=== PATIENT | female | born 2005 | race African-American/Black ===

== ENCOUNTER 2025-04-16 13:11 | Emergency (ER) | payer OTHER, SELFPAY ==
--- OUTSIDE RECORDS SUMMARY | 2025-01-12 18:00 | XMS_ITS | Continuity of Care Document ---
Author Organization [facility] Address [address] [place] [address] Phone Care Team Providers Care Supervisor Hide House Name Role Phone Santy DONIS, FACC, Home Unavailable Unavailab le Procedures Procedure Date ELECTROCARDIOGRAM REPORT Advance Directives Directive Yes / No Effective Date File Name No Information Encounters Encounter Description Practice Location Reason(s) For Visit Diagnoses Date Provider Providers Copied on Encounter [facility], [address] [place] [address], [id number], tel:[phone] [facility] ER No Information Santy Bhat. [address] [place] [address], [id number], . tel:[phone] Referring Provider: [facility], [address] [place] [address], [phone]. tel:[phone] Family History Family Member Type Diagnosis Age At Onset No Information Payers Payer name Insurance type Covered alliance party ID Authorsathisha ron(s) [place] MEDICAID [place] [id number] Social History Type Description Quantity Date Captured Comments Sex Female Smoking Status No Information Chief Complaint And Reason For Visit No Information Reason For Referral Reason For Referral No Information History Of Present Illness Encounter Date Complaint History Of Prese nt Illness No Information Functional Status Date Functional Assessmen t No Information Instructions Date Instruction Additional Infor mation No Information Assessments Type Assessment Date No Information Patient Care Teams Name Effective Dates (start - stop) Status Members No Information
--- OUTSIDE RECORDS SUMMARY | 2025-01-12 18:00 | XMS_ITS | Continuity of Care Document ---
Author Organization [facility] Address [address] [place] [address] Phone Care Team Providers Care Jailor Name Role Phone Santy DONIS, FACC, Home Unavailable Unavailab le Procedures Procedure Date ELECTROCARDIOGRAM REPORT Advance Directives Directive Yes / No Effective Date File Name No Information Encounters Encounter Description Practice Location Reason(s) For Visit Diagnoses Date Provider Providers Copied on Encounter [facility], [address] [place] [address], [id number], tel:[phone] [facility] ER No Information Santy Bhat. [address] [place] [address], [id number], . tel:[phone] Referring Provider: [facility], [address] [place] [address], [id number]. tel:[phone] Family History Family Member Type Diagnosis Age At Onset No Information Payers Payer name Insurance type Covered constitution party ID Authorsathisha ron(s) [place] MEDICAID CI [id number] Social History Type Description Quantity Date Captured [...]
--- OUTSIDE RECORDS SUMMARY | 2025-01-12 18:00 | XMS_ITS | Continuity of Care Document ---
Author Organization [facility] Address [address] [place] [address] Phone Care Team Providers Care Commercial Sewing Instructor Name Role Phone Santy DONIS, FACC, Home Unavailable Unavailab le Procedures Procedure Date ELECTROCARDIOGRAM REPORT Advance Directives Directive Yes / No Effective Date File Name No Information Encounters Encounter Description Practice Location Reason(s) For Visit Diagnoses Date Provider Providers Copied on Encounter [facility], [address] [place] [address], [id number], tel:[phone] [facility] ER No Information Santy Bhat. [address] [place] [address], [id number], . tel:[phone] Referring Provider: [facility], [address] [place] [address], [phone]. tel:[phone] Family History Family Member Type Diagnosis Age At Onset No Information Payers Payer name Insurance type Covered libertarian ID Authorsathisha ron(s) [place] MED[place]ID [place] [id number] Social History Type Description Quantity Date Captured [...]
--- OUTSIDE RECORDS SUMMARY | 2025-01-12 18:00 | XMS_ITS | Continuity of Care Document ---
Author Organization [facility] Address [address] [place] [phone] Phone Care Team Providers Care Patient Appointment Coordinator Name Role Phone Santy DONIS, FACC, Home Unavailable Unavailab le Procedures Procedure Date ELECTROCARDIOGRAM REPORT Advance Directives Directive Yes / No Effective Date File Name No Information Encounters Encounter Description Practice Location Reason(s) For Visit Diagnoses Date Provider Providers Copied on Encounter [facility], [address] [place] [address], [id number], tel:[phone] [facility] ER No Information Santy Bhat. [address] [place] [address], [id number], . tel:[phone] Referring Provider: [facility], [address] [place] [address], [id number]. tel:[phone] Family History Family Member Type Diagnosis Age At Onset No Information Payers Payer name Insurance type Covered green party ID Authorsathisha ron(s) [place] MED[place]ID CI [id number] Social History Type Description Quantity Date Captured [...]
--- OUTSIDE RECORDS SUMMARY | 2025-01-12 18:00 | XMS_ITS | Continuity of Care Document ---
Author Organization [facility] Address [address] [place] [phone] Phone Care Team Providers Care Acid Tender Name Role Phone Santy DONIS, FACC, Home Unavailable Unavailab le Procedures Procedure Date ELECTROCARDIOGRAM REPORT Advance Directives Directive Yes / No Effective Date File Name No Information Encounters Encounter Description Practice Location Reason(s) For Visit Diagnoses Date Provider Providers Copied on Encounter [facility], [address] [place] [address], [id number], tel:[phone] [facility] ER No Information Santy Bhat. [address] [place] [address], [id number], . tel:[phone] Referring Provider: [facility], [address] [place] [address], [phone]. tel:[phone] Family History Family Member Type Diagnosis Age At Onset No Information Payers Payer name Insurance type Covered republican ID Authorsathisha ron(s) [place] MED[place]ID CI [id number] Social History Type Description Quantity Date Captured [...]
--- OUTSIDE RECORDS SUMMARY | 2025-01-12 18:00 | XMS_ITS | Continuity of Care Document ---
Author Organization [facility] Address [address] [place] [phone] Phone Care Team Providers Care Customer Insight Analyst Name Role Phone Santy DONIS, FACC, Home Unavailable Unavailab le Procedures Procedure Date ELECTROCARDIOGRAM REPORT Advance Directives Directive Yes / No Effective Date File Name No Information Encounters Encounter Description Practice Location Reason(s) For Visit Diagnoses Date Provider Providers Copied on Encounter [facility], [address] [place] [address], [id number], tel:[phone] [facility] ER No Information Santy Bhat. [address] [place] [address], [id number], . tel:[phone] Referring Provider: [facility], [address] [place] [address], [phone]. tel:[phone] Family History Family Member Type Diagnosis Age At Onset No Information Payers Payer name Insurance type Covered libertarian ID Authorsathisha ron(s) [place] MEDICAID CI [id number] Social History Type Description Quantity Date Captured [...]
--- OUTSIDE RECORDS SUMMARY | 2025-01-12 18:00 | XMS_ITS | Continuity of Care Document ---
Author Organization [facility] Address [address] [place] [phone] Phone Care Team Providers Care Youth Coordinator Name Role Phone Santy DONIS, FACC, Home Unavailable Unavailab le Procedures Procedure Date ELECTROCARDIOGRAM REPORT Advance Directives Directive Yes / No Effective Date File Name No Information Encounters Encounter Description Practice Location Reason(s) For Visit Diagnoses Date Provider Providers Copied on Encounter [facility], [address] [place] [address], [id number], tel:[phone] [facility] ER No Information Santy Bhat. [address] [place] [address], [id number], . tel:[phone] Referring Provider: [facility], [address] [place] [address], [phone]. tel:[phone] Family History Family Member Type Diagnosis Age At Onset No Information Payers Payer name Insurance type Covered republican ID Authorsathisha ron(s) [place] MEDICAID [place] [id number] Social History Type Description Quantity Date Captured [...]
--- OUTSIDE RECORDS SUMMARY | 2025-01-12 18:00 | XMS_ITS | Continuity of Care Document ---
Author Organization [facility] Address [address] [place] [address] Phone Care Team Providers Care Sap Consultant Name Role Phone Santy DONIS, FACC, Home Unavailable Unavailab le Procedures Procedure Date ELECTROCARDIOGRAM REPORT Advance Directives Directive Yes / No Effective Date File Name No Information Encounters Encounter Description Practice Location Reason(s) For Visit Diagnoses Date Provider Providers Copied on Encounter [facility], [address] [place] [address], [id number], tel:[phone] [facility] ER No Information Santy Bhat. [address] [place] [address], [id number], . tel:[phone] Referring Provider: [facility], [address] [place] [address], [phone]. tel:[phone] Family History Family Member Type Diagnosis Age At Onset No Information Payers Payer name Insurance type Covered libertarian ID Authorsathisha ron(s) [place] MED[place]ID [place] [id number] Social History Type Description Quantity Date Captured [...]
--- OUTSIDE RECORDS SUMMARY | 2025-01-12 18:00 | XMS_ITS | Continuity of Care Document ---
Author Organization [facility] Address [address] [place] [phone] Phone Care Team Providers Care Box Lining Machine Operator Name Role Phone Santy DONIS, FACC, Home Unavailable Unavailab le Procedures Procedure Date ELECTROCARDIOGRAM REPORT Advance Directives Directive Yes / No Effective Date File Name No Information Encounters Encounter Description Practice Location Reason(s) For Visit Diagnoses Date Provider Providers Copied on Encounter [facility], [address] [place] [address], [id number], tel:[phone] [facility] ER No Information Santy Bhat. [address] [place] [address], [id number], . tel:[phone] Referring Provider: [facility], [address] [place] [address], [phone]. tel:[phone] Family History Family Member Type Diagnosis Age At Onset No Information Payers Payer name Insurance type Covered alliance party ID Authorsathisha ron(s) [place] MEDICAID CI [id number] Social History Type Description Quantity Date Captured [...]
--- OUTSIDE RECORDS SUMMARY | 2025-01-12 18:00 | XMS_ITS | Continuity of Care Document ---
Author Organization [facility] Address [address] [place] [phone] Phone Care Team Providers Care Business Associate Name Role Phone Santy DONIS, FACC, Home Unavailable Unavailab le Procedures Procedure Date ELECTROCARDIOGRAM REPORT Advance Directives Directive Yes / No Effective Date File Name No Information Encounters Encounter Description Practice Location Reason(s) For Visit Diagnoses Date Provider Providers Copied on Encounter [facility], [address] [place] [address], [id number], tel:[phone] [facility] ER No Information Santy Bhat. [address] [place] [address], [id number], . tel:[phone] Referring Provider: [facility], [address] [place] [address], [id number]. tel:[phone] Family History Family Member Type Diagnosis Age At Onset No Information Payers Payer name Insurance type Covered alliance party ID Authorsathisha ron(s) [place] MEDICAID [place] [id number] Social History Type Description Quantity Date Captured [...]
--- OUTSIDE RECORDS SUMMARY | 2025-01-12 18:00 | XMS_ITS | Continuity of Care Document ---
Author Organization [facility] Address [address] [place] [phone] Phone Care Team Providers Care Shuttle Inspector Name Role Phone Santy DONIS, FACC, Home Unavailable Unavailab le Procedures Procedure Date ELECTROCARDIOGRAM REPORT Advance Directives Directive Yes / No Effective Date File Name No Information Encounters Encounter Description Practice Location Reason(s) For Visit Diagnoses Date Provider Providers Copied on Encounter [facility], [address] [place] [address], [id number], tel:[phone] [facility] ER No Information Santy Bhat. [address] [place] [address], [id number], . tel:[phone] Referring Provider: [facility], [address] [place] [address], [id number]. tel:[phone] Family History Family Member Type Diagnosis Age At Onset No Information Payers Payer name Insurance type Covered alliance party ID Authorsathisha ron(s) [place] MEDICAID CI [id number] Social History Type Description Quantity Date Captured [...]
--- OUTSIDE RECORDS SUMMARY | 2025-01-12 18:00 | XMS_ITS | Continuity of Care Document ---
Author Organization [facility] Address [address] [place] [phone] Phone Care Team Providers Care Orderlies Teacher Name Role Phone Santy DONIS, FACC, Home Unavailable Unavailab le Procedures Procedure Date ELECTROCARDIOGRAM REPORT Advance Directives Directive Yes / No Effective Date File Name No Information Encounters Encounter Description Practice Location Reason(s) For Visit Diagnoses Date Provider Providers Copied on Encounter [facility], [address] [place] [address], [id number], tel:[phone] [facility] No Information Santy Bhat. [address] [place] [address], [id number], . tel:[phone] Referring Provider: [facility], [address] [place] [address], [phone]. tel:[phone] Family History Family Member Type Diagnosis Age At Onset No Information Payers Payer name Insurance type Covered democrat ID Authorsathisha ron(s) [place] MEDICAID CI [id number] Social History Type Description Quantity Date Captured [...]
--- OUTSIDE RECORDS SUMMARY | 2025-01-12 18:00 | XMS_ITS | Continuity of Care Document ---
Author Organization [facility] Address [address] [place] [phone] Phone Care Team Providers Care Patron Attendant Name Role Phone Santy DONIS, FACC, Home Unavailable Unavailab le Procedures Procedure Date ELECTROCARDIOGRAM REPORT Advance Directives Directive Yes / No Effective Date File Name No Information Encounters Encounter Description Practice Location Reason(s) For Visit Diagnoses Date Provider Providers Copied on Encounter [facility], [address] [place] [address], [id number], tel:[phone] [facility] ER No Information Santy Bhat. [address] [place] [address], [id number], . tel:[phone] Referring Provider: [facility], [address] [place] [address], [phone]. tel:[phone] Family History Family Member Type Diagnosis Age At Onset No Information Payers Payer name Insurance type Covered green party ID Authorsathisha ron(s) [place] MEDICAID CI [id number] Social History Type Description Quantity Date Captured [...]
--- OUTSIDE RECORDS SUMMARY | 2025-01-12 18:00 | XMS_ITS | Continuity of Care Document ---
Author Organization [facility] Address [address] [place] [phone] Phone Care Team Providers Care Volunteer Firefighter Name Role Phone Santy DONIS, FACC, Home Unavailable Unavailab le Procedures Procedure Date ELECTROCARDIOGRAM REPORT Advance Directives Directive Yes / No Effective Date File Name No Information Encounters Encounter Description Practice Location Reason(s) For Visit Diagnoses Date Provider Providers Copied on Encounter [facility], [address] [place] [address], [id number], tel:[phone] [facility] ER No Information Santy Bhat. [address] [place] [address], [id number], . tel:[phone] Referring Provider: [facility], [address] [place] [address], [id number]. tel:[phone] Family History Family Member Type Diagnosis Age At Onset No Information Payers Payer name Insurance type Covered constitution party ID Authorsathihsa ron(s) [place] MEDICAID CI [id number] Social History Type Description Quantity Date Captured [...]
--- OUTSIDE RECORDS SUMMARY | 2025-01-12 18:00 | XMS_ITS | Continuity of Care Document ---
Author Organization [facility] Address [address] [place] [phone] Phone Care Team Providers Care V Belt Curer Name Role Phone Santy DONIS, FACC, Home Unavailable Unavailab le Procedures Procedure Date ELECTROCARDIOGRAM REPORT Advance Directives Directive Yes / No Effective Date File Name No Information Encounters Encounter Description Practice Location Reason(s) For Visit Diagnoses Date Provider Providers Copied on Encounter [facility], [address] [place] [address], [id number], tel:[phone] [facility] ER No Information Santy Bhat. [address] [place] [address], [id number], . tel:[phone] Referring Provider: [facility], [address] [place] [address], [id number]. tel:[phone] Family History Family Member Type Diagnosis Age At Onset No Information Payers Payer name Insurance type Covered constitution party ID Authorsathisha ron(s) [place] MEDICAID CI [id number] Social History Type Description Quantity Date Captured [...]
--- OUTSIDE RECORDS SUMMARY | 2025-01-12 18:00 | XMS_ITS | Continuity of Care Document ---
Author Organization [facility] Address [address] [place] [phone] Phone Care Team Providers Care Travel Physical Therapist Name Role Phone Santy DONIS, FACC, Home Unavailable Unavailab le Procedures Procedure Date ELECTROCARDIOGRAM REPORT Advance Directives Directive Yes / No Effective Date File Name No Information Encounters Encounter Description Practice Location Reason(s) For Visit Diagnoses Date Provider Providers Copied on Encounter [facility], [address] [place] [address], [id number], tel:[phone] [facility] ER No Information Santy Bhat. [address] [place] [address], [id number], . tel:[phone] Referring Provider: [facility], [address] [place] [address], [phone]. tel:[phone] Family History Family Member Type Diagnosis Age At Onset No Information Payers Payer name Insurance type Covered republican ID Authorsathisha ron(s) [place] MEDICAID CI [id number] Social History Type Description Quantity Date Captured [...]
--- OUTSIDE RECORDS SUMMARY | 2025-01-12 18:00 | XMS_ITS | Continuity of Care Document ---
Author Organization [facility] Address [address] [place] [phone] Phone Care Team Providers Care Tape Sewing Machine Operator Name Role Phone Santy DONIS, FACC, Home Unavailable Unavailab le Procedures Procedure Date ELECTROCARDIOGRAM REPORT Advance Directives Directive Yes / No Effective Date File Name No Information Encounters Encounter Description Practice Location Reason(s) For Visit Diagnoses Date Provider Providers Copied on Encounter [facility], [address] [place] [address], [id number], tel:[phone] [facility] ER No Information Santy Bhat. [address] [place] [address], [id number], . tel:[phone] Referring Provider: [facility], [address] [place] [address], [phone]. tel:[phone] Family History Family Member Type Diagnosis Age At Onset No Information Payers Payer name Insurance type Covered libertarian ID Authorsathisha ron(s) [place] MED[place]ID CI [id number] Social History Type Description Quantity Date Captured [...]
--- OUTSIDE RECORDS SUMMARY | 2025-01-12 18:00 | XMS_ITS | Continuity of Care Document ---
Author Organization [facility] Address [address] [place] [phone] Phone Care Team Providers Care Greens Tier Name Role Phone Santy DONIS, FACC, Home Unavailable Unavailab le Procedures Procedure Date ELECTROCARDIOGRAM REPORT Advance Directives Directive Yes / No Effective Date File Name No Information Encounters Encounter Description Practice Location Reason(s) For Visit Diagnoses Date Provider Providers Copied on Encounter [facility], [address] [place] [address], [id number], tel:[phone] [facility] ER No Information Santy Bhat. [address] [place] [address], [id number], . tel:[phone] Referring Provider: [facility], [address] [place] [address], [phone]. tel:[phone] Family History Family Member Type Diagnosis Age At Onset No Information Payers Payer name Insurance type Covered green party ID Authorsathisha ron(s) [place] MEDICAID [place] [id number] Social History Type Description Quantity Date Captured [...]
--- OUTSIDE RECORDS SUMMARY | 2025-01-12 18:00 | XMS_ITS | Continuity of Care Document ---
Author Organization [facility] Address [address] [place] [phone] Phone Care Team Providers Care Teacher Aide Name Role Phone Santy DONIS, FACC, Home Unavailable Unavailab le Procedures Procedure Date ELECTROCARDIOGRAM REPORT Advance Directives Directive Yes / No Effective Date File Name No Information Encounters Encounter Description Practice Location Reason(s) For Visit Diagnoses Date Provider Providers Copied on Encounter [facility], [address] [place] [address], [id number], tel:[phone] [facility] ER No Information Santy Bhat. [address] [place] [address], [id number], . tel:[phone] Referring Provider: [facility], [address] [place] [address], [id number]. tel:[phone] Family History Family Member Type Diagnosis Age At Onset No Information Payers Payer name Insurance type Covered democrat ID Authorsathisha ron(s) [place] MEDICAID CI [id number] Social History Type Description Quantity Date Captured [...]
--- OUTSIDE RECORDS SUMMARY | 2025-01-12 18:00 | XMS_ITS | Continuity of Care Document ---
Author Organization [facility] Address [address] [place] [phone] Phone Care Team Providers Care Passenger Representative Name Role Phone Santy DONIS, FACC, Home Unavailable Unavailab le Procedures Procedure Date ELECTROCARDIOGRAM REPORT Advance Directives Directive Yes / No Effective Date File Name No Information Encounters Encounter Description Practice Location Reason(s) For Visit Diagnoses Date Provider Providers Copied on Encounter [facility], [address] [place] [address], [id number], tel:[phone] [facility] ER No Information Santy Bhat. [address] [place] [address], [id number], . tel:[phone] Referring Provider: [facility], [address] [place] [address], [id number]. tel:[phone] Family History Family Member Type Diagnosis Age At Onset No Information Payers Payer name Insurance type Covered constitution party ID Authorsathisha ron(s) [place] MEDICAID CI [id number] Social History Type Description Quantity Date Captured [...]
--- OUTSIDE RECORDS SUMMARY | 2025-01-12 18:00 | XMS_ITS | Continuity of Care Document ---
Author Organization [facility] Address [address] [place] [phone] Phone Care Team Providers Care Supervisor Area Name Role Phone Santy DONIS, FACC, Home Unavailable Unavailab le Procedures Procedure Date ELECTROCARDIOGRAM REPORT Advance Directives Directive Yes / No Effective Date File Name No Information Encounters Encounter Description Practice Location Reason(s) For Visit Diagnoses Date Provider Providers Copied on Encounter [facility], [address] [place] [address], [id number], tel:[phone] [facility] No Information Santy Bhat. [address] [place] [address], [id number], . tel:[phone] Referring Provider: [facility], [address] [place] [address], [id number]. tel:[phone] Family History Family Member Type Diagnosis Age At Onset No Information Payers Payer name Insurance type Covered constitution party ID Authorsathisha ron(s) [place] MEDICA[place] [id number] Social History Type Description Quantity Date Captured [...]
--- OUTSIDE RECORDS SUMMARY | 2025-01-12 18:00 | XMS_ITS | Continuity of Care Document ---
Author Organization [facility] Address [address] [place] [phone] Phone Care Team Providers Care Environmental Health Manager Name Role Phone Santy DONIS, FACC, Home Unavailable Unavailab le Procedures Procedure Date ELECTROCARDIOGRAM REPORT Advance Directives Directive Yes / No Effective Date File Name No Information Encounters Encounter Description Practice Location Reason(s) For Visit Diagnoses Date Provider Providers Copied on Encounter [facility], [address] [place] [address], [id number], tel:[phone] [facility] No Information Santy Baht. [address] [place] [address], [id number], . tel:[phone] Referring Provider: [facility], [address] [place] [address], [id number]. tel:[phone] Family History Family Member Type Diagnosis Age At Onset No Information Payers Payer name Insurance type Covered republican ID Authorsathisha ron(s) [place] [id number] Social History Type Description Quantity Date Captured [...]
--- OUTSIDE RECORDS SUMMARY | 2025-01-12 18:00 | XMS_ITS | Continuity of Care Document ---
Author Organization [facility] Address [address] [place] [phone] Phone Care Team Providers Care Care Services Manager Name Role Phone Santy DONIS, FACC, Home Unavailable Unavailab le Procedures Procedure Date ELECTROCARDIOGRAM REPORT Advance Directives Directive Yes / No Effective Date File Name No Information Encounters Encounter Description Practice Location Reason(s) For Visit Diagnoses Date Provider Providers Copied on Encounter [facility], [address] [place] [address], [id number], tel:[phone] [facility] No Information Santy Bhat. [address] [place] [address], [id number], . tel:[phone] Referring Provider: [facility], [address] [place] [address], [id number]. tel:[phone] Family History Family Member Type Diagnosis Age At Onset No Information Payers Payer name Insurance type Covered republican ID Authorsathisha ron(s) [place] MEDICAID CI [id number] Social History Type Description Quantity Date Captured [...]
--- OUTSIDE RECORDS SUMMARY | 2025-01-12 18:00 | XMS_ITS | Continuity of Care Document ---
Author Organization [facility] Address [address] [place] [phone] Phone Care Team Providers Care Marketing Project Specialist Name Role Phone Santy DONIS, FACC, oHme Unavailable Unavailab le Procedures Procedure Date ELECTROCARDIOGRAM REPORT Advance Directives Directive Yes / No Effective Date File Name No Information Encounters Encounter Description Practice Location Reason(s) For Visit Diagnoses Date Provider Providers Copied on Encounter [facility], [address] [place] [address], [id number], tel:[phone] [facility] No Information Santy Bhat. [address] [place] [address], [id number], . tel:[phone] Referring Provider: [facility], [address] [place] [address], [id number]. tel:[phone] Family History Family Member Type Diagnosis Age At Onset No Information Payers Payer name Insurance type Covered alliance party ID Authorsathisha ron(s) [place] CI [id number] Social History Type Description Quantity Date Captured [...]
[2025-04-16 13:17] VITALS: BP 178/84; PULSE 106; RESP 20; TEMP 36.9; O2SAT 98
--- NOTE | 2025-04-16 13:39 | PC.NURSE ---
slight left sided facial droop, left sided weakness/ droop -SOLITARIO -thinner 14 weeks . EMS called per Halima BREAUX
--- OUTSIDE RECORDS SUMMARY | 2025-04-16 14:14 | XMS_ITS | Encounter Summary ---
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 Pt drove herself to urgent care. Pt states she is 14 weeks . Arrives A&Ox4. Encounter Details Date Type Department Care Team (Late st Contact Info) Description 04/16/2025 2:14 PM DIRECTOR OF MANUFACTURING OPERATIONS - 04/16/2025 4:59 PM DIRECTOR OF MANUFACTURING OPERATIONS Emergency [facility] Emergency Department [address] [place] [address] Uzair Og MD [address] [place] [address] Neuralgia (Primary Dx) Discharge Disposition: Discharge to home or self care Social History Tobacco Use Types Packs/Day Years Used Date Smoking Tobacco: Never Smokeless Tobacco: Never Alcohol Use Standard Drinks/Week Comments Yes 0 (1 standard drink = 0.6 oz pur e alcohol) occasionally AUDIT-C Answer Date Recorded Q1: How often do you have a drink containing alc ohol? Never 03/28/2025 Average Number of Drinks Not on file 025 Frequency of Binge Drinking Not on file 02/28 Edgar Depression Scale Answer Date Recorded Edgar Depression Scale Total 4 03/28/2025 The thought of harming myself has occurred to me . Never 03/28/2025 Personal Safety Answer Date Recorded Have you ever been in or are you currently in a harmful physical or emotional relationship or is someone making you feel afraid or unsafe? Denies 04/16/2025 Estimated Date of Delivery Comme nts Yes 10/14/2025 Based on Ultraso und Sex and Gender Information Value Date Recorded Sex Assigned at Not on file Legal Sex Female 7:14 PM CDT Gender Identity Not on file Sexual Orientation Not on file documented as of this encounter Last Filed Vital Signs Vital Sign Reading Time Taken Comments Blood Pressure 133/74 04/16/2025 4:00 PM DIRECTOR OF MANUFACTURING OPERATIONS Pulse 80 04/16/2025 4:00 PM DIRECTOR OF MANUFACTURING OPERATIONS Temperature 36.7 C (98 F) 04/16/2025 4:00 PM DIRECTOR OF MANUFACTURING OPERATIONS Respiratory Rate 22 04/16/2025 4:00 PM DIRECTOR OF MANUFACTURING OPERATIONS Oxygen Saturation 99% 04/16/2025 4:00 PM DIRECTOR OF MANUFACTURING OPERATIONS Inhaled Oxygen Concentration - - Weight 104.3 kg (230 lb) 04/16/2025 2:30 PM DIRECTOR OF MANUFACTURING OPERATIONS Height 170.2 cm (5' 7) 04/16/2025 2:30 PM DIRECTOR OF MANUFACTURING OPERATIONS Body Mass Index 36.02 04/16/2025 2:30 PM DIRECTOR OF MANUFACTURING OPERATIONS documented in this encounter Functional Status * Question Answer Date of Assessment Author Is the patient being treated today because it is known or suspected that they prepared, started, or tried to end their life? No 04/16/2025 2:31 PM Jo-Ann Cook , OSVALDO * Question Answer Date of Assessment Author 1. In the past month, have y ou wished you were or that you could go to sleep and not wake up? No 04/16/2025 2:31 PM Jo-Ann Cook , OSVALDO 2. In the past month, have y ou actually had any thoughts of killing yourself? No 04/16/2025 2:31 PM Jo-Ann Cook , OSVALDO 6. Have you ever done anythi ng, started to do anything, or prepared to do anything to end your life? No 04/16/2025 2:31 PM DIRECTOR OF MANUFACTURING OPERATIONS Jo-Ann Anderson OSVALDO * Suicide Risk Level Answer Date of Assessment Author No risk level 04/16/2025 2:31 PM Jo-Ann Cook RN * Question Answer Date of Assessment Author MAP (mmHg) 86 04/16/2025 2:30 PM Jo-Ann Pedersen RN * Fall Risk Assessment Tool - MEDFRAT Question Answer Date of Assessment Author Prior Fall Event (Autopopulated from EMR) None found 04/16/2025 2:35 PM Jorje Cook RN Pt needs supervision/assistance with ambulation? (makes patient High risk) No 04/16/2025 2:35 PM Jo-Ann Cook RN History of falling in last 3 months, including since admission 0 04/16/2025 2:35 PM Jo-Ann Cook RN Confusion or disorientation 0 04/16/2025 2: 35 PM Jo-Ann Cook RN Intoxicated or sedated 0 04/16/2025 2:35 PM Jo-Ann Cook RN Impaired gait 0 04/16/2025 2:35 PM Jo-Ann Anderson RN Mobility assist device used 0 04/16/2025 2: 35 PM Jo-Ann Cook RN Altered elimination 0 04/16/2025 2:35 PM CS Jo-Ann Erickson RN Fall risk score: (1-2 low risk), (3-4 moderate risk), (5 or more high risk) 0 04/16/2025 2:35 PM Grecia Cook RN Interventions - GENERAL USE as needed patient/family education;call light in reach;bed low/locked;gripper socks;yellow arm band 04/16/2025 2:35 PM Jo-Ann Cook RN documented as of this encounter Mental Status * Question Answer Entry Date Author Level of Consciousness Alert;Awake 3:07 PM Jo-Ann Cook RN Orientation Oriented X4 (person, place, time, situation) 04/16/2025 3:07 PM Jo-Ann Cook RN Neuro (WDL) X 04/16/2025 3:07 PM Jo-Ann Cook RN documented in this encounter Discharge Instructions * Discharge Instructions* Uzair Og MD - 04/16/2025 3:44 PM DIRECTOR OF MANUFACTURING OPERATIONS Follow up with your OBGYN. CTOR OF MANUFACTURING OPERATIONS * Attachments The following attachments cannot be sent through Care Everywhere. * Paresthesia (Maint Mechanic) (Libyan) documented in this encounter Medications at Time of Discharge cholecalciferol (VITAMIN D-3) 2000 unit tablet Take 1 tablet (2,000 Units total) by mouth daily 30 tablet 7 03/31/2025 fish oil-dha-epa 1,200-144-216 mg capsule Take by mouth. fluconazole (DIFLUCAN) 150 mg tablet Take one tablet and repeat in 3 days. 2 tablet 03/31/2025 hydrOXYzine (ATARAX) 25 mg tablet Take 1 tablet (25 mg total) by mouth 3 (three) times a day as needed for itching levETIRAcetam (KEPPRA) 500 mg tablet Take 1 tablet (500 mg total) by mouth 2 (two) times a day 60 tablet 01/09/2025 ondansetron (ZOFRAN) 4 mg tablet Take 1 tablet (4 mg total) by mouth every 8 (eight) hours as needed for nausea or vomiting PNV with qxgkpys-vkhq-YL ( Vitamin Plus Low Iron) 27 mg iron- 1 mg tablet Take 1 tablet by mouth daily 30 tablet 11 02/17/2025 02/17/2026 documented as of this encounter Discharge Disposition Disposition Code Departure Means Destination Comment s Discharge to home or self care documented in this encounter ED Notes * Uzair Og MD - 04/16/2025 2:18 PM CST HPI Chief Complaint Patient presents with ??? Numbness Pt bibEMS from urgent care with c/o L sided facial numbness and L arm weakness that started at 1100today. Pt drove herself to urgent care. Pt states she is 14 weeks . Arrives A&Ox4. Patient was at school at 11:00 a.m.. She started having numbness and tingling to the left face. Herheart was racing. EMS was called. EMS noted some drift to the left arm and left leg. She is 14 weeks . Patient History: Past Medical History: Diagnosis Date ??? Anemia ??? Anxiety ??? Borderline diabetes Review of Systems Review of Systems Constitutional: Negative for chills and fever. HENT: Negative for congestion, rhinorrhea and sore throat. Eyes: Negative for pain. Respiratory: Negative for cough and shortness of breath. Cardiovascular: Negative for chest pain and leg swelling. Gastrointestinal: Negative for abdominal pain, diarrhea, nausea and vomiting. Genitourinary: Negative for difficulty urinating. Musculoskeletal: Negative for myalgias. Skin: Negative for rash. Neurological: Positive for weakness and numbness. Negative for dizziness and headaches. Psychiatric/Behavioral: Negative for behavioral problems. Physical Exam ED Triage Vitals [04/16/25 1410] Temp Pulse Resp BP SpO2 36.3 ??C (97.3 ??F) 89 17 138/66 99 % Temp src Heart Rate Source Patient Position BP Location FiO2 (%) -- -- -- -- -- Height Height Method Weight Weight Method 1.702 m (5' 7) Stated 104.3 kg (230 lb) Stated Physical Exam Vitals and nursing note reviewed. Constitutional: General: She is not in acute distress. Appearance: She is well-developed. HENT: Head: Normocephalic and atraumatic. Eyes: Conjunctiva/sclera: Conjunctivae normal. Cardiovascular: Rate and Rhythm: Normal rate and regular rhythm. Heart sounds: No murmur heard. Pulmonary: Effort: Pulmonary effort is normal. No respiratory distress. Breath sounds: Normal breath sounds. Abdominal: Palpations: Abdomen is soft. Tenderness: There is no abdominal tenderness. Musculoskeletal: General: No swelling. Cervical back: Neck supple. Skin: General: Skin is warm and dry. Capillary Refill: Capillary refill takes less than 2 seconds. Neurological: Mental Status: She is alert and oriented to person, place, and time. Sensory: Sensory deficit present. Motor: Weakness present. Comments: Decreased sensation to left face, left arm, left leg. Drift to left arm, left leg. Patient had some difficulty reading the stroke card. Normal [id number]. Psychiatric: Mood and Affect: Mood normal. MDM NIH Score Interval: Baseline Level of Consciousness (1a.): 0 LOC Questions (1b.): 0 LOC Commands (1c.): 0 Best Gaze (2.): 0 Visual (3.): 0 Facial Palsy (4.): 0 Motor Arm, Left (5a.): 0 Motor Arm, Right (5b.): 0 Motor Leg, Left (6a.): 0 Motor Leg, Right (6b.): 0 Limb Ataxia (7.): 0 Sensory (8.): 1 Best Language (9.): 0 Dysarthria (10.): 0 Extinction and Inattention (11.) (Formerly Neglect): 0 Total: 1 Medical Decision Making Patient presents with decreased sensation left side. Also has some drift left upper and lower extremity. History of functional neurological symptom disorder. She is . Amount and/or Complexity of Data Reviewed Labs: ordered. Details: HCG 82,044. Hemoglobin 10.2 (stable) Radiology: ordered and independent interpretation performed. Details: CT head: Negative ECG/medicine tests: ordered and independent interpretation performed. Details: EKG: Sinus tachycardic, rate 111 Discussion of management or test interpretation with external provider(s): Differential diagnosis: Stroke, functional neurological syndrome. Symptoms rapidly improving. Discussed with Dr. Grant who does not feel this is a stroke. Patient is stable for discharge. Critical Care Total time providing critical care: 30 minutes ED Course as of 04/16/25 1545 Time: 04/16 1448 Comment: Dr. Grant does not feel this is a stroke. By: Uzair Og MD Time: 04/16 1535 Comment: Discussed with Dr. Michael. By: Uzair Og MD Final diagnoses: Neuralgia Uzair Og MD 04/16/25 1547 CTOR OF MANUFACTURING OPERATIONS * Kwan Barton RN - 04/16/2025 2:14 PM CST Bed: ED06 Expected date: Expected time: Means of arrival: Comments: 64 Kwan Barton RN 04/16/25 1414 CTOR OF MANUFACTURING OPERATIONS documented in this encounter Miscellaneous Notes * ED Procedure Note - Uziar Og MD - 04/16/2025 3:47 PM CSTAssociated Order(s): Critical Care Procedure Critical Care Performed by: Uzair Og MD Authorized by: Uzair Og MD Critical care provider statement: As reflected in the history, physical exam, orders, notes, and/or MDM, I was personally present while the patient was critically ill and provided critical care services for 30 minutes, excluding timeinvolved in separately billable procedures. Critical care was necessary to treat or prevent imminent or life- threatening deterioration of the following condition(s): severe neurologic condition Critical care was time spent by me providing the following: decision regarding acute lytic therapy I provided emergent necessary critical care medicine services to this patient. I ordered and reviewed test results and/or imaging studies. I spent time discussing the management of this critically ill patient with consultants and the medical staff. Uzair Og MD 04/16/25 1540 CTOR OF MANUFACTURING OPERATIONS * Teleconsult - Da Grant MD - 04/16/2025 3:28 PM CST Images from the original note were not included. [facility] Telestroke Consultation Note Patient Name: Pat Anderson Date of : 2005 Date of Service: 04/16/2025 Telestroke Documentation Consult Start Time: 1431 Name of Requesting Provider: Earle Video Used? : Yes Imaging Reviewed?: Yes Total Time Spent Coordinating Patient Care: 72 minutes (04/16/25 7068) Subjective HPI: Patient is a 19 y.o. female presenting with L side sensory changes. Symptoms started at school at 11am. Developed numbness in L check and felt her heart was beating fast. 14 weeks Has history of functional neurological disease presenting with spells of shaking and stuttering NIHSS 4 per ED for sensory, L arm and leg drift, and stuttering speech On video exam- Speech fluent, able to name and read sentences. No facial droop. L side drift of chuy leg in stepwise pattern without pronation. When pointed out to her about the L side drift, she denies any weakness and showed disproportionate complacency geetha indifference. Last known well Date Last Known Well : 04/16/25 Time Last Known Well: 1100 Discovery of Symptoms - Date: 04/16/25 Discovery of Symptoms - Time: 1100 (04/16/25 1412) PMH/Vascular Risk Factors: none (Not in a hospital admission) No current facility-administered medications for this encounter. Current Outpatient Medications Medication Sig Dispense Refill cholecalciferol (VITAMIN D-3) 2000 unit tablet Take 1 tablet (2,000 Units total) by mouth daily 30 tablet 7 fish oil-dha-epa 1,200-144-216 mg capsule Take by mouth. (Patient not taking: Reported on 03/28/2025) fluconazole (DIFLUCAN) 150 mg tablet Take one tablet and repeat in 3 days. 2 tablet 0 hydrOXYzine (ATARAX) 25 mg tablet Take 1 tablet (25 mg total) by mouth 3 (three) times a day as needed for itching levETIRAcetam (KEPPRA) 500 mg tablet Take 1 tablet (500 mg total) by mouth 2 (two) times a day (Patient not taking: Reported on 03/28/2025) 60 tablet 0 ondansetron (ZOFRAN) 4 mg tablet Take 1 tablet (4 mg total) by mouth every 8 (eight) hours as needed for nausea or vomiting PNV with [id number]-lrby-HU ( Vitamin Plus Low Iron) 27 mg iron- 1 mg tablet Take 1 tablet by mouth daily 30 tablet 11 Objective Vitals: Patient Vital Signs for the past 24 hrs: BP MAP (mmHg) Temp Pulse Resp SpO2 Height Weight 04/16/25 1430 138/66 86 36.3 ??C (97.3 ??F) 98 17 99 % 170.2 cm (5' 7) 104.3 kg (230 lb) 04/16/25 1410 138/66 86 36.3 ??C (97.3 ??F) 89 17 99 % 170.2 cm (5' 7) 104.3 kg (230 lb) NIHSS: NIH Stroke Scale Interval: Baseline Level of Consciousness (1a.): Alert, keenly responsive LOC Questions (1b.): Answers both questions correctly LOC Commands (1c.): Performs both tasks correctly Best Gaze (2.): Normal Visual (3.): No visual loss Facial Palsy (4.): Normal symmetrical movements Motor Arm, Left (5a.): No drift Motor Arm, Right (5b.): No drift Motor Leg, Left (6a.): No drift Motor Leg, Right (6b.): No drift Limb Ataxia (7.): Absent Sensory (8.): Ghpx-ou-mmeutxpd sensory loss, patient feels pinprick is less sharp or is dull on theaffected side, or there is a loss of superficial pain with pinprick, but patient is aware of being touched Best Language (9.): No aphasia Dysarthria (10.): Normal Extinction and Inattention (11.) (Formerly Neglect): No abnormality Total: 1 (04/16/25 1412) Other exam findings: Imaging Interpretation: personally reviewed -- HCT non con: no obvious acute process noted. CT Head preliminary read for lytic treatment (Read to Treat)? N/A Labs: Lab Results Lab Value Date/Time GLUCOSE 87 04/16/2025 1438 GLUCOSE 80 04/16/2025 1414 PT 11.7 04/16/2025 1438 INR 1.04 04/16/2025 1438 Hematology Lab History Latest Ref Rng & Units 01/10/2025 21:00 01/17/2025 00:52 03/28/2025 10:53 04/16/2025 14:38 Labs - Hematology WBC 3.80 - 9.90 K/cumm 9.81 7.73 6.65 8.21 Total Hb, POC 11.9 - 15.5 g/dL 10.9 11.3 10.7 10.2 Hct 35.6 - 45.5 % 37.6 38.6 35.5 33.8 Plt 150 - 400 K/cumm 389 278 313 288 Neutrophil abs 1.50 - 6.50 K/cumm 5.16 4.66 4.79 5.86 Lymphocytes, abs 0.80 - 3.30 K/cumm 3.36 2.25 1.24 1.52 Other notable labs: Medical Decision Making: Recommendations Thrombolytic Recommended: No Patient was evaluated but ineligible for IV thrombolysis for the following reason(s): Unlikely acute stroke, more likely mimic Thrombectomy Decision: No Thrombectomy Exclusion Criteria: Unlikely acute stroke, more likely mimic, NIHSS < 6 between 0-24 hours from last known normal (04/16/25 1527) Assessment/Plan: Ms. Anderson is a 19 yo F presenting with L side sensory symptoms. On exam with L side drift of arm and leg in stepwise pattern without pronation. Symptoms are atypical of stroke, suspect component of functional overlay. Total time spent coordinating care 72 minutes. Da Grant MD [facility] Telestroke Service For post-discharge follow up (if no availability of local neurology practice) an Ambulatory Referral to Neurology with [facility] can be placed at the time of discharge. In the referral order, please indicate that the patient was seen by [facility] Telestroke, provide a stroke-related diagnosis, and request follow up with the first available provider in 1-2 weeks. For follow up questions please call the [facility] and ask to speak with the on-call physician for Telestroke CTOR OF MANUFACTURING OPERATIONS * ED Procedure Note - Uzair Og MD - 04/16/2025 2:46 PM CSTAssociated Order(s): ECG 12 lead Procedure ECG 12 lead Date/Time: 04/16/2025 2:46 PM Performed by: Uzair Og MD Authorized by: Uzair Og MD Rate: ECG rate: 111 ECG rate assessment: tachycardic Rhythm: Rhythm: sinus tachycardia Interpretation: Interpretation: abnormal Uzair gO MD 04/16/25 1446 CTOR OF MANUFACTURING OPERATIONS documented in this encounter Plan of Treatment Not on file documented as of this encounter Procedures Procedure Name Priority Date/Time Associated Diagnosis Comments MD CRITICAL CARE ILL/INJURED PATIENT INIT 30-74 MIN Routine 04/16/2025 3:47 PM DIRECTOR OF MANUFACTURING OPERATIONS TROPONIN T HIGH-SENSITIVITY SERIES (BASELINE, 2HR, 4HR, 6HR) Routine 04/16/2025 2:38 PM DIRECTOR OF MANUFACTURING OPERATIONS EGFR STAT 04/16/2025 2:38 PM DIRECTOR OF MANUFACTURING OPERATIONS DIFFERENTIAL AUTO STAT 04/16/2025 2:3 8 PM DIRECTOR OF MANUFACTURING OPERATIONS PRO B-TYPE NATRIURETIC PEPTIDE STAT 04/16/2025 2:38 PM DIRECTOR OF MANUFACTURING OPERATIONS CBC WITH AUTO DIFFERENTIAL STAT 04/16/2025 2:38 PM DIRECTOR OF MANUFACTURING OPERATIONS APTT STAT 04/16/2025 2:38 PM DIRECTOR OF MANUFACTURING OPERATIONS PROTIME-INR STAT 04/16/2025 2:38 PM DIRECTOR OF MANUFACTURING OPERATIONS HCG, BLOOD, QUANTITATIVE STAT 04/16/2025 2:38 PM DIRECTOR OF MANUFACTURING OPERATIONS MAGNESIUM Routine 04/16/2025 2:38 PM DIRECTOR OF MANUFACTURING OPERATIONS COMPREHENSIVE METABOLIC PANEL STAT 04/16/2025 2:38 PM DIRECTOR OF MANUFACTURING OPERATIONS ECG 12-LEAD Routine 04/16/2025 2:30 PM DIRECTOR OF MANUFACTURING OPERATIONS CT STROKE PROTOCOL WO CONTRAST Critical/Life-T hreatening 04/16/2025 2:21 PM DIRECTOR OF MANUFACTURING OPERATIONS POCT GLUCOSE DEVICE Routine 04/16/2025 2 :14 PM DIRECTOR OF MANUFACTURING OPERATIONS documented in this encounter Results * MD CRITICAL CARE ILL/INJURED PATIENT INIT 30-74 MIN (04/16/2025 3:47 PM DIRECTOR OF MANUFACTURING OPERATIONS) Narrative Uzair Og MD - 04/16/2025 3:47 PM DIRECTOR OF MANUFACTURING OPERATIONS Uzair Og MD 04/16/2025 3:47 PM Critical Care Performed by: Uzair Og MD Authorized by: Uzair Og MD Critical care provider statement: As reflected in the history, physical exam, orders, notes, and/or MDM, I was personally present while the patient was critically ill and provided critical care services for 30 minutes, excluding time involved in separately billable procedures. Critical care was necessary to treat or prevent imminent or life-threatening deterioration of the following condition(s): severe neurologic condition Critical care was time spent by me providing the following: decision regarding acute lytic therapy I provided emergent necessary critical care medicine services to this patient. I ordered and reviewed test results and/or imaging studies. I spent time discussing the management of this critically ill patient with consultants and the medical staff. us Uzair Og MD IN CLINIC/BEDSIDE ORDERABLES Final Result * eGFR (04/16/2025 2:38 PM DIRECTOR OF MANUFACTURING OPERATIONS) eGFR >90 >=60 mL/min/1. 73 m2 Comment: Interpretive Data Reference Interval Normal >/= 90 mL/min/1.73m2 Mildly decreased* 60 - 89 mL/min/1.73m2 Mildly to moderately decreased 45 - 59 mL/min/1.73m2 Moderately to severely decreased 30 - 44 mL/min/1.73m2 Severely decreased 15 - 29 mL/min/1.73m2 Kidney Failure < 15 mL/min/1.73m2 *Relative to young adult level Estimated glomerular filtration rate is determined by the 2020 CKD-EPI equation recommended by the National Kidney Foundation (A Unifying Approach to GFR Estimation: Recommendations of the NKF-ASK Task Force on Reassessing the Inclusion of Race in Diagnosing Kidney Disease, JASN 2020). The CKD-EPI equation should not be used for patients with unstable renal function and has not been validated in children and those over 70. Current interpretive data was last reviewed 2021. Blood 04/16/2025 2:38 PM DIRECTOR OF MANUFACTURING OPERATIONS 04/16/2025 2:40 PM DIRECTOR OF MANUFACTURING OPERATIONS us Uzair Og MD LAB BLOOD ORDERABLES Final R esult [facility] ([facility] [place]) 1 [facility] Department [place] [address] * Differential, auto (04/16/2025 2:38 PM DIRECTOR OF MANUFACTURING OPERATIONS) Neutrophil abs 5.86 1.50 - 6.50 K/cumm Imm gran abs 0.02 0.00 - 0.10 K/cumm [facility] ([facility]) Lymphocyte abs 1.52 0.80 - 3.30 K/cumm [facility] ([facility] [place]) Monocyte abs 0.66 0.20 - 0.80 K/cumm [facility] ([facility] [place]) Eosinophil abs 0.13 0.00 - 0.50 K/cumm [facility] ([place] [place]) Basophil abs 0.02 0.00 - 0.10 K/cumm [facility] ([facility] [place]) Neutrophil pct 71.5 % [facility] ([facility] [place]) Comment: Interpretive Data Percent cell count reference ranges are not reported, since discordance with absolute values may lead to misinterpretation of CBC data. Current Interpretive Data was last revised on 2017. Imm gran pct 0.2 % [facility] ([facility] [place]) Comment: Interpretive Data Percent cell count reference ranges are not reported, since discordance with absolute values may lead to misinterpretation of CBC data. Current Interpretive Data was last revised on 2017. Lymphocyte pct 18.5 % [facility] ([facility] [place]) Comment: Interpretive Data Percent cell count reference ranges are not reported, since discordance with absolute values may lead to misinterpretation of CBC data. Current Interpretive Data was last revised on 2017. Monocyte pct 8.0 % [facility] ([place] [place]) Comment: Interpretive Data Percent cell count reference ranges are not reported, since discordance with absolute values may lead to misinterpretation of CBC data. Current Interpretive Data was last revised on 2017. Eosinophil pct 1.6 % [facility] ([place]) Comment: Interpretive Data Percent cell count reference ranges are not reported, since discordance with absolute values may lead to misinterpretation of CBC data. Current Interpretive Data was last revised on 2017. Basophil pct 0.2 % [facility] ([facility] [place]) Comment: Interpretive Data Percent cell count reference ranges are not reported, since discordance with absolute values may lead to misinterpretation of CBC data. Current Interpretive Data was last revised on 2017. Blood 04/16/2025 2:38 PM DIRECTOR OF MANUFACTURING OPERATIONS 04/16/2025 2:40 PM DIRECTOR OF MANUFACTURING OPERATIONS Uzair Og MD LAB BLOOD ORDERABLES Final R esult Performing Organization Address City/[facility] Co de Phone Number [facility] ([facility]) [address] [facility] [place] [address] * (ABNORMAL) hCG, blood, quantitative (04/16/2025 2:38 PM DIRECTOR OF MANUFACTURING OPERATIONS) hCG, quant 82,094.0( H) 0.0 - 5.0 IUnits/L Comment: Interpretive Data Male: < 5 IU/L Non- premenopausal Female: <5 IU/L The Teresa hCG Beta Quant assay procedure was used. Results from different manufacturers or methods may not be comparable. Serial testing should be performed using the same method. Interpretive Data was last revised on 2023 Blood 04/16/2025 2:38 PM DIRECTOR OF MANUFACTURING OPERATIONS 04/16/2025 2:40 PM DIRECTOR OF MANUFACTURING OPERATIONS Uzair Og MD LAB BLOOD ORDERABLES Final R esult Performing Organization Address City/[facility]/ZIP Co de Phone Number [place] [facility] ([place]) 1 [facility] [place] [address] * Troponin T high-sensitivity series (baseline, 2hr, 4hr, 6hr) (04/16/2025 2:38 PM DIRECTOR OF MANUFACTURING OPERATIONS) Trop T hs <6 <=14 ng/L Comment: Interpretive Data For further hscTnT resources including the diagnostic algorithm and an aid in interpretation, copy and paste this link: https://nrl.testcatalog.org/show/hsTrop Current Interpretive Data last revised 2020. Blood 04/16/2025 2:38 PM DIRECTOR OF MANUFACTURING OPERATIONS 04/16/2025 2:40 PM DIRECTOR OF MANUFACTURING OPERATIONS Uzair Og MD LAB BLOOD ORDERABLES Final R esult Performing Organization Address City/[facility]/ZIP Co de Phone Number [place] [facility] ([place]) 1 [facility] [place] [address] * Protime-INR (04/16/2025 2:38 PM DIRECTOR OF MANUFACTURING OPERATIONS) PT 11.7 10.2 - 13.5 sec [facility] ([facility]) INR 1.04 0.90 - 1.20 [facility] ([place]) Comment: Interpretive data Oral anticoagulant therapeutic ranges: Venous thromboembolism prophylaxis or treatment: 2.0-3.0 CARDIOLOGY Standard range: 2.0-3.0 High-intensity range: 2.5-3.5 Refer to indication-specific guidelines for appropriate target ranges for prosthetic heart valve replacement. Current interpretive data was last revised on 2019. Blood 04/16/2025 2:38 PM DIRECTOR OF MANUFACTURING OPERATIONS 04/16/2025 2:40 PM DIRECTOR OF MANUFACTURING OPERATIONS Uzair Og MD LAB BLOOD ORDERABLES Final R esult Performing Organization Address City/[facility] Co de Phone Number [place] [facility] ([place]) 1 [facility] [place] [address] * Pro B-type natriuretic peptide (04/16/2025 2:38 PM DIRECTOR OF MANUFACTURING OPERATIONS) NT-proBNP 59 <=300 pg/mL Comment: Interpretive Comments: A. Dyspnea in Acute Care Setting All Ages: < 300 pg/ml, acute heart failure unlikely. < 50 yrs: 300 - 450 pg/ml, further investigation warranted. > 450 pg/ml, acute heart failure likely. 50 - 74 yrs: 300 - 900 pg/ml, further investigation warranted. > 900 pg/ml, acute heart failure likely . > or = 75 yrs: 450 - 1800 pg/ml, further investigation warranted. > 1800 pg/ml, acute heart failure likely. B. Non-acute Setting < 75 yrs < 125 pg/ml, rules out heart failure. > or = 125 pg/ml, further investigation warranted. > or = 75 yrs < 450 pg/ml, rules out heart failure. > or = 450 pg/ml, further investigation warranted. - Knowledge of each individual patient's NT-proBNP range may be more useful than using similar cut-points for every patient. Please note that marked elevations in NT-proBNP levels may be observed in state other than Left Ventricular Congestive Failure, including: acute coronary syndromes, right heart strain/failure (including pulmonary embolism and cor pulmonale), critical illness, renal failure, as well as advanced age. - References: 1. Jo ISBELL et.al. Eur Heart J. 2006:27:330-337. 2. Lory MERAZ, Nikolai GUERRA. J. AM Ariana Cardiol: Cardiovasc Imag. 2009;2: 216- 225. Interpretive Data Last Revised Date: 2018. Blood 04/16/2025 2:38 PM DIRECTOR OF MANUFACTURING OPERATIONS 04/16/2025 2:40 PM DIRECTOR OF MANUFACTURING OPERATIONS Uzair Og MD LAB BLOOD ORDERABLES Final R esult Performing Organization Address [facility] Co de Phone Number [place] [facility] ([place]) 1 [facility] [address] * Magnesium (04/16/2025 2:38 PM DIRECTOR OF MANUFACTURING OPERATIONS) Magnesium 1.8 1.4 - 2.5 mg/dL Blood 04/16/2025 2:38 PM DIRECTOR OF MANUFACTURING OPERATIONS 04/16/2025 2:40 PM DIRECTOR OF MANUFACTURING OPERATIONS Uzair Og MD LAB BLOOD ORDERABLES Final R esult Performing Organization Address City/[facility] Co de Phone Number [place] [facility] ([place]) 1 [facility] [place] [address] * (ABNORMAL) Comprehensive metabolic panel (04/16/2025 2:38 PM DIRECTOR OF MANUFACTURING OPERATIONS) Sodium 134(L) 135 - 145 mmol/L Potassium, pl 3.8 3.3 - 4.9 mmol/L [facility] Chloride 102 97 - 110 mmol/L [facility] CO2 22 22 - 32 mmol/L [facility] Anion gap 10 2 - 15 mmol/L [facility] BUN 6 6 - 25 mg/dL [facility] Creatinine 0.63 0.60 - 1.10 mg/dL [facility] Glucose 87 70 - 199 mg/dL [facility] Comment: Interpretive Data Fasting glucose >/= 126 mg/dl is diagnostic for diabetes. Fasting is defined as no caloric intake for at least 8 hours. Fasting glucose between 100 mg/dl to 125 mg/dl is diagnostic of prediabetes. In a patient with classic symptoms of hyperglycemia or hyperglycemic crisis, a random glucose >/= 200 mg/dl is diagnostic for diabetes. In the absence of unequivocal hyperglycemia, results should be confirmed by repeat testing. The classification and Diagnosis of Diabetes Diabetes Care 2021; 46: S19-S40. Current interpretive data was last revised 2022. Calcium 9.1 8.5 - 10.3 mg/dL [facility] Bilirubin, total 0.2 0.1 - 1.2 mg/dL [facility] Protein, pl 7.1 6.5 - 8.5 g/dL [facility] Albumin 3.9 3.5 - 5.0 g/dL [facility] Alk phos 96 40 - 130 Units/L [facility] ALT 16 7 - 45 Units/L [facility] AST 18 10 - 45 Units/L [facility]) Blood 04/16/2025 2:38 PM DIRECTOR OF MANUFACTURING OPERATIONS 04/16/2025 2:40 PM DIRECTOR OF MANUFACTURING OPERATIONS us Uzair Og MD LAB BLOOD ORDERABLES Final R esult [facility] 1 [facility] [place] [address] * (ABNORMAL) CBC with auto differential (04/16/2025 2:38 PM DIRECTOR OF MANUFACTURING OPERATIONS) WBC 8.21 3.80 - 9.90 K/cumm Hgb 10.2(L) 11.9 - 15.5 g/dL [facility] Hct 33.8(L) 35.6 - 45.5 % [facility] Plt 288 150 - 400 K/cumm [facility] MPV 10.6 9.1 - 12.3 fL [facility] RBC 4.67 3.90 - 5.20 M/cumm [facility] MCV 72.4(L) 81.3 - 96.4 fL [facility] MCH 21.8(L) 27.1 - 33.3 pg [facility] MCHC 30.2(L) 32.3 - 35.7 g/dL [facility] RDW CV 16.1(H) 11.1 - 14.9 % [facility] RDW SD 41.4 35.7 - 48.1 fL [facility] NRBC abs 0.00 0.00 - 0.01 K/cumm [facility]) Blood 04/16/2025 2:38 PM DIRECTOR OF MANUFACTURING OPERATIONS 04/16/2025 2:40 PM DIRECTOR OF MANUFACTURING OPERATIONS Uzair Og MD LAB BLOOD ORDERABLES Final R esult [place] [facility] ([place] 1 [facility] [place] [address] * aPTT (04/16/2025 2:38 PM DIRECTOR OF MANUFACTURING OPERATIONS) aPTT 32 26 - 38 sec [facility] Comment: Interpretive Data Heparin therapeutic range: 66.0 - 100.0 seconds. Range based on correlation with therapeutic heparin activity range of 0.3 - 0.7 Units/mL. Blood 04/16/2025 2:38 PM DIRECTOR OF MANUFACTURING OPERATIONS 04/16/2025 2:40 PM DIRECTOR OF MANUFACTURING OPERATIONS Uzair Og MD LAB BLOOD ORDERABLES Final R esult Performing Organization Address City/[facility] Co de Phone Number [place] [facility] ([place] 1 [facility] [place] [address] * ECG 12 lead (04/16/2025 2:30 PM DIRECTOR OF MANUFACTURING OPERATIONS) 04/16/2025 2:30 PM DIRECTOR OF MANUFACTURING OPERATIONS Narrative [facility] - 04/16/2025 4:18 PM DIRECTOR OF MANUFACTURING OPERATIONS Vent Rate: 111 bpm RR Interval: 539 msec MD Interval: 155 msec QRS Duration: 90 msec QT Interval: 328 msec QTC Interval: 393 msec P-R-T [place]: 61 - 47 - 39 degrees IMPRESSION: SINUS TACHYCARDIA ABNORMAL RHYTHM ECG Compared to prior EKG, heart rate has increased Electronically Signed By: Arun Cadena MD Uzair Og MD ECG ORDERABLES Final Result Performing Organization Address [facility] de Phone Number [facility] [employer] [facility] * CT Stroke Head WO Contrast (04/16/2025 2:21 PM DIRECTOR OF MANUFACTURING OPERATIONS) Anatomical Region Laterality Modality Head N/A Computed Tomogra phy 04/16/2025 2:30 PM DIRECTOR OF MANUFACTURING OPERATIONS Impressions 04/16/2025 2:30 PM DIRECTOR OF MANUFACTURING OPERATIONS 1. No acute intracranial findings. The Critical results were discussed with Earle by Dr. Salinas on 04/16/2025 2:29 PM. Electronically signed by: Macario Salinas M.D. Narrative 04/16/2025 2:30 PM DIRECTOR OF MANUFACTURING OPERATIONS EXAMINATION: CT STROKE HEAD WO CONTRAST HISTORY: Stroke symptoms. TECHNIQUE: Axial images acquired through the brain without intravenous contrast. Images stored on PACS. Automated exposure control was used as a dose optimization technique for this examination. COMPARISON: Prior exam 01/09/2025 FINDINGS: BRAIN: There are no extra-axial fluid collections. No evidence of hemorrhage. Mcnamara-white matter differentiation is normal. Ventricles and sulci demonstrate a normal size and configuration. No shift of midline structures or mass effect. EXTRA-AXIAL SPACES: There is no extra-axial fluid collection or mass. CALVARIUM: There is no calvarial fracture. SINUSES/MASTOIDS: The paranasal sinuses and the mastoid air cells are normal in appearance. ORBITS: The globes are intact. The intraconal fat is normal in appearance. Procedure Note Macario Salinas MD - 04/16/2025 EXAMINATION: CT STROKE HEAD WO CONTRAST HISTORY: Stroke symptoms. TECHNIQUE: Axial images acquired through the brain without intravenous contrast. Images stored on PACS. Automated exposure control was used as a dose optimization technique for this examination. COMPARISON: Prior exam 01/09/2025 FINDINGS: BRAIN: There are no extra-axial fluid collections. No evidence of hemorrhage. Mcnamara-white matter differentiation is normal. Ventricles and sulci demonstrate a normal size and configuration. No shift of midline structures or mass effect. EXTRA-AXIAL SPACES: There is no extra-axial fluid collection or mass. CALVARIUM: There is no calvarial fracture. SINUSES/MASTOIDS: The paranasal sinuses and the mastoid air cells are normal in appearance. ORBITS: The globes are intact. The intraconal fat is normal in appearance. IMPRESSION: 1. No acute intracranial findings. The Critical results were discussed with Earle by Dr. Salinas on 04/16/2025 2:29 PM. Electronically signed by: Macario Salinas M.D. Uzair Og MD IMG CT PROCEDURES Final Resu lt * POCT glucose (04/16/2025 2:14 PM DIRECTOR OF MANUFACTURING OPERATIONS) Glucose, POC 80 70 - 199 mg/dL Blood 04/16/2025 2:14 PM DIRECTOR OF MANUFACTURING OPERATIONS 04/16/2025 2:14 PM DIRECTOR OF MANUFACTURING OPERATIONS us Uzair Og MD LAB POCT ORDERABLES - DEVICE Final Result [place] [facility] 1 [facility] [place] [address] documented in this encounter Visit Diagnoses Diagnosis Neuralgia- Primary Unspecified neuralgia, neuritis, and radiculitis documented in this encounter Care Teams Cylinder Machine Operator Pulp Drier Relationship Specialty Start Date End Date Melissa Street MD [address] [facility] [address] [place] [address] PCP - General 01/07/18 documented as of this encounter
--- NOTE | 2025-04-16 14:40 | ED_ITS ---
HPI - General Adult General Chief complaint: Unspecified Stated complaint: face numbness/heart racing Time Seen by Provider: 04/16/25 13:23 Source: patient and RN notes reviewed Mode of arrival: ambulatory Limitations: no limitations History of Present Illness HPI narrative: 19-year-old female patient that is 14 weeks , presents today complaining of intermittent left-sided facial tingling, intermittent heart racing, and stiffness to the left side of the neck. Symptoms began 2.5 hours prior to exam. States that her mother told her that she has a droop to her mouth swell. Patient denies headache, dizziness or lightheadedness, shortness of breath, chest pain, weakness. [employer] is Dr. Longoria at [facility]. Patient denies any recent illness aside from some recent nausea due to her . Hx of pseudoseizures, but does not take any medications currently aside from vitamins. Related Data Home Medications ?Medication ?Instructions ?Recorded ?Confirmed ?Last Taken ?Type No Home Medications 04/16/25 04/16/25 U nknown History Allergies Allergy/AdvReac Type Severity Reaction Status Date / Time No Known Allergies Allergy Verified 04/16/25 13:22 [facility] Comments At time of signature, I have reviewed and agree with nursing past medical, surgical, social and family history unless otherwise noted. Please see nursing chart for further information. There is no relevant family history pertinent to the presenting complaint Exam Narrative: GENERAL: Well-appearing, well-nourished, and in no acute distress. HEAD: Normocephalic, atraumatic. EYES: EOMI. PERRL. No nystagmus noted. No redness or drainage. Conjunctivae normal. ENT: Mucous membranes pink and moist. Nares clear. No rhinorrhea. NECK: Normal AROM. CHEST: No respiratory distress. Clear to auscultation. HEART: Regular rate and rhythm. No murmur appreciated. EXTREMITIES: Normal range of motion. No edema. SKIN: Warm, dry, no rash. Capillary refill normal. Normal skin turgor. NEURO: Alert and oriented x3. Gait steady. +drift, left hand weakness with manager willow, slight droop of left face. Asymmetrical eyebrow lift. Tongue movement normal PSYCH: Normal affect. No signs of depression or anxiety. Course Course Level of Care: Express Care Visit Vital Signs Vital signs: Vital Signs Temperature 98.5 F 04/16/25 13:17 Pulse Rate 106 H 04/16/25 13:17 Respiratory Rate 20 04/16/25 13:17 Blood Pressure 178/84 H 04/16/25 13:17 Pulse Oximetry 98 04/16/25 13:17 Oxygen Delivery Room Air 04/16/25 13:17 Temperature 98.5 F 04/16/25 13:17 Pulse Rate 106 H 04/16/25 13:17 Respiratory Rate 20 04/16/25 13:17 Blood Pressure 178/84 H 04/16/25 13:17 Pulse Oximetry 98 04/16/25 13:17 Oxygen Delivery Room Air 04/16/25 13:17 Reviewed Transfer Transfered to: [facility] Transportation: ALS Transfer rationale: neurological changes, r/o CVA Accepting physician: Earle Medical Decision Making MDM Narrative Medical decision making narrative: 19-year-old female patient that is 14 weeks , presents today complaining of intermittent left-sided facial tingling, intermittent heart racing, and stiffness to the left side of the neck. Symptoms began 2.5 hours prior to exam. States that her mother told her that she has a droop to her mouth swell. Patient denies headache, dizziness or lightheadedness, shortness of breath, chest pain, weakness. [employer] is Dr. Longoria at [facility]. Patient denies any recent illness aside from some recent nausea due to her . Hx of pseudoseizures, but does not take any medications currently aside from vitamins. Upon exam, patient has some decreased weakness in the left hand, positive drift on the left side, weakness in the left side of the face. EMS called to transport patient to the ER for further evaluation. BP elevated upon arrival at 178/84. Patient agrees with plan. Differential Diagnosis Differential Diagnosis: CVA, TIA, nerve palsy, preeclampsia Vital Signs Vital Signs: Vital Signs Temperature 98.5 F 04/16/25 13:17 Pulse Rate 106 H 04/16/25 13:17 Respiratory Rate 20 04/16/25 13:17 Blood Pressure 178/84 H 04/16/25 13:17 Pulse Oximetry 98 04/16/25 13:17 Oxygen Delivery Room Air 04/16/25 13:17 Temperature 98.5 F 04/16/25 13:17 Pulse Rate 106 H 04/16/25 13:17 Respiratory Rate 20 04/16/25 13:17 Blood Pressure 178/84 H 04/16/25 13:17 Pulse Oximetry 98 04/16/25 13:17 Oxygen Delivery Room Air 04/16/25 13:17 Critical Care Time Critical Care Time Critical Care Time: No Discharge Plan Discharge Clinical Impression: Neurological deficit present Patient Disposition: Acute Care Hospital Condition: Serious Patient Language: Occitan Prescriptions: No Action No Home Medications Follow-up/Referrals: PHYSICIAN,COMMISSIONING SPECIALIST [Primary Care Provider, Internal Medicine] Time of Disposition: 13:44
--- OUTSIDE RECORDS SUMMARY | 2025-04-16 19:19 | XMS_ITS | Encounter Summary ---
Author Organization [facility] Healthcare Address [address] [place] [address] Care Team Providers Care Substation Operator Name Role Phone Melissa Street MD Primary Care Pr ovider Encounter Details Date Type Department Care Team (Late st Contact Info) Description 10/26/2024 [facility] Post Discharge Follow up phone call [facility] Emergency Department [address] [place] [address] Rhonda Panda RN Social History Tobacco Use Types Packs/Day Years Used Date Smoking Tobacco: Never Smokeless Tobacco: Never Alcohol Use Standard Drinks/Week Comments Defer 0 (1 standard drink = 0.6 oz pur e alcohol) Personal Safety Answer Date Recorded Have you ever been in or are you currently in a harmful physical or emotional relationship or is someone making you feel afraid or unsafe? Denies 10/23/2024 Comments No Sex and Gender Information Value Date Recorded Sex Assigned at Not on file Legal Sex Female 7:14 PM CDT Gender Identity Not on file Sexual Orientation Not on file documented as of this encounter Plan of Treatment Not on file documented as of this encounter Visit Diagnoses Not on filedocumented in this encounter Care Teams Substation Operator Relationship Specialty Start Date End Date Melissa Street MD [address] [facility] [address] [place] [address] PCP - General 01/07/18 documented as of this encounter
--- OUTSIDE RECORDS SUMMARY | 2025-04-16 19:19 | XMS_ITS | Clinical Summary ---
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 Acti ve levETIRAcetam (KEPPRA) 500 mg tablet Take 1 tablet (500 mg total) by mouth 2 (two) times a day 60 tablet 5 Active Additional Information Patient not taking.Reported on 03/28/2025 PNV with epqbfyf-[id number] A ( Vitamin Plus Low Iron) 27 mg iron- 1 mg tablet Take 1 tablet by mouth daily 30 tablet 11 5 026 Active hydrOXYzine (ATARAX) 25 mg tablet Take 1 tablet (25 mg total) by mouth 3 (three) times a day as needed for itching Active ondansetron (ZOFRAN) 4 mg tablet Take 1 tablet (4 mg total) by mouth every 8 (eight) hours as needed for nausea or vomiting Active cholecalcifero l (VITAMIN D-3) 2000 unit tablet Take 1 tablet (2,000 Units total) by mouth daily 30 tablet 7 5 Active fluconazole (DIFLUCAN) 150 mg tablet Take one tablet and repeat in 3 days. 2 tablet 5 Active LORazepam (Ativan) 1 mg tabletIndicati ons:anxiety Take 1 tablet (1 mg total) by mouth every 12 (twelve) hours as needed for anxiety for up to 10 doses 10 tablet 5 Discontinu ed(Therapy completed) HYDROcodone-ac etaminophen (NORCO) 5-325 mg per tabletIndicati ons:Pain Take 1 tablet by mouth every 6 (six) hours as needed for pain 5 tablet 5 Discontinu ed(Therapy completed) hydrOXYzine (ATARAX) 10 mg tablet Take 2.5 tablets (25 mg total) by mouth 3 (three) times a day as needed for itching Discontinu ed(Duplica te order) LORazepam (ATIVAN) 0.5 mg tablet Take 1 tablet (0.5 mg total) by mouth every 6 (six) hours as needed for anxiety Discontinu ed(Therapy completed) metroNIDAZOLE (FLAGYL) 500 mg tablet Take 1 tablet (500 mg total) by mouth 2 (two) times a day for 7 days 14 tablet 5 Active Problems Problem Noted Date Diagnosed Date Vitamin D deficiency 03/31/2025 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 EEG was negative. Keppra stopped. 01/10- hospitalized at [facility]. Echo was previously negative in November having chest pain. Assessment & Plan (03/28/2025 1:25 PM CDT): Had migraines, frequent seizure despite Keppra; evaluated at [facility]. EEG was negative. Keppra stopped. 01/10- hospitalized at [facility]. Echo was previously negative in November having chest pain. Effusion of right knee 01/22/2018 Estimated Date of Delivery Comme nts Yes 10/14/2025 Based on Ultraso und Encounters Date Type Department Care Team Description 04/16/2025 2:14 PM HOB MILL OPERATOR - 04/16/2025 4:59 PM HOB MILL OPERATOR Emergency [facility] Emergency Department [address] [place] [address] Uzair Og MD Neuralgia (Primary Dx) Discharge Disposition: Discharge to home or self care 04/04/2025 Orders Only [place] JORD[facility] [address] [phone] ProviderHipolito MD 03/31/20[facility] [phone] Karmen Marc RN 03/31/2025 Results Follow-Up [address] [phone] Jason Michael MD Vaginitis panel Vaginal, Drugs of Abuse Screen, Urine with Reflex Confirmation, Rubella IgG antibody Blood, Additional followed-up results: 12 03/28/2025 10:55 AM CDT Lab [address] Encounter for supervision of normal first in first trimester 03/28/2025 10:45 AM CDT - 03/28/2025 11:59 [place] [address] Vaginal discharge; Encounter for supervision of normal first in first trimester Discharge Disposition: Discharge to home or self care 03/28/2025 9:30 AM CDT Office Visit [facility] [address] [phone] Jason Michael MD Encounter for supervision of normal first in first trimester (Primary Dx); 11 weeks gestation of ; Vaginal discharge; Functional neurological symptom disorder (conversion disorder), with abnormal movement 03/03/2025 10:00 AM CDT Ancillary Procedure [place] VISHALAleta [address] [phone] Establish gestational age, ultrasound 02/17/2025 9:00 AM CDT [facility] [address] [phone] Missed period (Primary Dx); Establish gestational age, ultrasound; Encounter for anatomic survey 01/17/2025 4:45 AM CDT - 01/17/2025 6:17 AM CDT Emergency [facility] Emergency Department [address] [place] [address] Yumiko Silvestre MD Muscle strain (Primary Dx) Discharge Disposition: Discharge to home or self care 01/17/2025 1:03 AM CDT - 01/17/2025 3:26 AM CDT Emergency [facility] Emergency Department [address] [place] [address] Yumiko Silvestre MD Chest wall pain (Primary Dx) Discharge Disposition: Discharge to home or self care from Last 3 Months Medical History Medical History Date Comments Borderline diabetes Anemia Anxiety Family History Medical History Relation Name Comments Diabetes Father Hypertension Father No Known Problems Mother Relation Name Status Comments Father Alive Mother Alive Social History Tobacco Use Types Packs/Day Years Used Date Smoking Tobacco: Never Smokeless Tobacco: Never Tobacco Cessation:Counseling Given: Not Answered Alcohol Use Standard Drinks/Week Comments Yes 0 (1 standard drink = 0.6 oz pur e alcohol) occasionally AUDIT-C Answer Date Recorded Q1: How often do you have a drink containing alc ohol? Never 03/28/2025 Average Number of Drinks Not on file 025 Frequency of Binge Drinking Not on file 02/28 [place] Depression Scale Answer Date Recorded [place] Depression Scale Total 4 03/28/2025 The thought [...] on file Sexual Orientation Not on file Obstetrics History Para Term AB IAB SAB Ectopic Multiple Livin g Live Births 1 Date Outcome GA Total Labor Labor/2nd/3rd Weight Sex Type Anes PTL Audrey A1 A5 Name Clin Current Summary Episode Dates Number of Fetuses Estimated Date of Delivery 02/17/2025 - Present (04/16/2025) 10/14/2025 (set by Keith Michael MD on 03/28/2025 based on Ultrasound on 03/03/2025) Dating Summary Based On LYNDSAY GA Diff Last Menstrual Period on 12/30/2024 10/06/2025 +1w1d Ultrasound on 03/03/2025 10/14/2025 Working GA:7w6d Vitals Pregravid Weight Height TWG (As of 04/16/2025) Pregrav id BMI 170.2 cm (5' 7) Date GA Fund Present FHR Mvmt BP Weight Edema Alb Glu Ket Dil/ Eff/Sta 03/28/2025 11w3d 126/68 0 /0/ Notes Progress Notes - Office Visi t - 03/28/2025 - GA:11w3d 03/28/2025 - - Minal Arguelles MA Genetic testing ordered. Prequel [id number], Lab collected. Tube lot # [id number] Exp. 11-25-25. MILL OPERATOR 03/28/2025 - - Jason Michael MD Initial OB Visit Subjective: Jacquie Roberts is a 19 y.o., at 11w3d, based on 1st trimester U/S, who presents for initial visit. She reports nausea. Additional concerns today: she was hospitalized from January 10 to at [facility] and diagnosed with functional neurologic symptom disorder. She was having seizure-like activity. Her EEG was reportedly negative, and she was told she was not having seizures. Keppra was not working and Keppra was stopped. She had also had chest pain previously and had a normal echo in November. Hx of irregular cycles. She was told she was borderline diabetic. She works at [employer]. She reports a history irregular cycles. Menstrual History: Patient's last menstrual period was 12/30/2024. Sexual History: OB History 1 Para Term AB Living SAB IAB Ectopic Multiple Live Births # Outcome Date GA Labor/2nd Weight Sex Type Anes PTL Lv A1 A5 1 Current Past Medical History: Diagnosis Date Anemia Anxiety Borderline diabetes No past surgical history on file. No Known Allergies Prior to Admission medications Medication Sig Start Date End Date Taking? Authorizing Provider hydrOXYzine (ATARAX) 25 mg tablet Take 1 tablet (25 mg total) by mouth 3 (three) times a day as needed for itching Yes Hipolito Estrada MD ondansetron (ZOFRAN) 4 mg tablet Take 1 tablet (4 mg total) by mouth every 8 (eight) hours as needed for nausea or vomiting Yes Hipolito Estrada MD PNV with [id number]-jsmn-TW ( Vitamin Plus Low Iron) 27 mg iron- 1 mg tablet Take 1 tablet by mouth daily 02/17/25 02/17/26 Yes Jason Michael MD hydrOXYzine (ATARAX) 10 mg tablet Take 2.5 tablets (25 mg total) by mouth 3 (three) times a day as needed for itching 03/28/25 Yes Hipolito Estrada MD LORazepam (ATIVAN) 0.5 mg tablet Take 1 tablet (0.5 mg total) by mouth every 6 (six) hours as needed for anxiety 03/28/25 Yes Hipolito Estrada MD fish oil-dha-epa 1,200-144-216 mg capsule Take by mouth. Patient not taking: Reported on 03/28/2025 Hipolito Estrada MD HYDROcodone-acetaminophen (NORCO) 5-325 mg per tablet Take 1 tablet by mouth every 6 (six) hours as needed for pain Patient not taking: Reported on 03/28/2025 01/17/25 Yumiko Silvestre MD levETIRAcetam (KEPPRA) 500 mg tablet Take 1 tablet (500 mg total) by mouth 2 (two) times a day Patient not taking: Reported on 03/28/2025 01/09/25 02/08/25 Liban Sanchez PA LORazepam (Ativan) 1 mg tablet Take 1 tablet (1 mg total) by mouth every 12 (twelve) hours as needed for anxiety for up to 10 doses Patient not taking: Reported on 03/28/2025 12/18/24 03/28/25 Merry Duran MD Family History Problem Relation Age of Onset No Known Problems Mother Hypertension Father Diabetes Father Social History Tobacco Use Smoking status: Never Smokeless tobacco: Never Substance and Sexual Activity Drug use: Defer Sexual activity: Defer Alcohol Use: Not At Risk (03/28/2025) AUDIT-C Frequency of Alcohol Consumption: Never Average Number of Drinks: Not on file Frequency of Binge Drinking: Not on file ROS Objective: BP 126/68 (BP Location: Left arm, Patient Position: Sitting) Pulse 98 Ht 170.2 cm (5' 7) LMP 12/30/2024 SpO2 99% BMI 36.18 kg/m Physical OB Exam: Last filed by Jason Michael MD on 03/28/2025 1:28 PM General Physical Exam HEENT: normal Heart: normal Skin: normal Thyroid: normal Lungs: normal Extremities: normal Lymph Nodes: normal Breasts: normal Neurological: normal Abdomen: normal Pelvic Exam Vulva: normal Vagina: discharge white Cervix: normal Uterus: 12 weeks Adnexa: normal Spines: average Subpubic Arch: normal Pelvic Type: gynecoid See flow sheet for gestation -specific examination and vitals. See Episode Report for physical of record. Assessment: Patient is a 19 y.o., at 11w3d, size = dates. Diagnoses and all orders for this visit: Encounter for supervision of normal first in first trimester (Primary) - Urinalysis reflex to microscopic and culture Urine, clean voided; Future - Varicella Zoster IgG antibody Blood; Future - Hepatitis C antibody Blood; Future - Hepatitis B Surface Antigen Blood; Future - Type and screen; Future - Vitamin D 25 hydroxy; Future - RPR Blood; Future - HIV 1/2 Antibody plus p24 Antigen Blood; Future - CBC with auto differential; Future - Rubella IgG antibody Blood; Future - Drugs of Abuse Screen, Urine with Reflex Confirmation; Future - Pap with reflex to High Risk HPV and Genotyping (Cytology Component); Future - ThinPrep processing (Molecular component); Future - Hemoglobin A1c; Future 11 weeks gestation of Vaginal discharge - Vaginitis panel Vaginal; Future Functional neurological symptom disorder (conversion disorder), with abnormal movement Assessment & Plan: Had migraines, frequent seizure despite Keppra; evaluated at [facility]. EEG was negative. Keppra stopped. 01/10- hospitalized at [facility]. Echo was previously negative in November having chest pain. Outside record request to review. Desires to wait on influenza vaccine. Problem list reviewed and updated: LMP 8-4-25 Problems (from 02/17/25 to present) No problems associated with this episode. Plan: vitamin with DHA discussed Labs ordered Discussed genetic testing - patient plans NIPT Genetic counseling declined Carrier screening offered. I reviewed exercise, diet, medications, precautions. Also, see checklist. She would like to wait on the flu vaccine. Follow up in 4 weeks. Jason Michael MD 03/28/2025 MILL OPERATOR Progress Notes - Clinical Akhtar pport - 02/17/2025 - GA:5w6d 02/17/2025 - 5w6d - Keith Arguelles MA Jacquie was seen in office today for confirmation. Urine HCG positive. Pt LMP 825 , Pt would like to see Dr. Michael. US orders placed. DHA sent to pharmacy per pt request. Last Filed Vital Signs Vital Sign Reading Time Taken Comments Blood Pressure 133/74 04/16/2025 4:00 PM HOB MILL OPERATOR Pulse 80 04/16/2025 4:00 PM HOB MILL OPERATOR Temperature 36.7 C (98 F) 04/16/2025 4:00 PM HOB MILL OPERATOR Respiratory Rate 22 04/16/2025 4:00 PM HOB MILL OPERATOR Oxygen Saturation 99% 04/16/2025 4:00 PM HOB MILL OPERATOR Inhaled Oxygen Concentration - - Weight 104.3 kg (230 lb) 04/16/2025 2:30 PM HOB MILL OPERATOR Height 170.2 cm (5' 7) 04/16/2025 2:30 PM HOB MILL OPERATOR Body Mass Index 36.02 04/16/2025 2:30 PM HOB MILL OPERATOR Plan of Treatment Health Maintenance Due Date Last Done Comments Regular Well Visit/Exam 18-64 10/11/2021 Influenza Vaccine (#1) 2025 , 05/06/2019, 03/22/2018, Additional history exists DTaP/Tdap/Td Vaccine (7 - Td or Tdap) 03/04/2025 03/04/2015, 02/08/2008, 06/03/2005, Additional history exists Cervical Cancer Screening 03/28/2026 03/28/2025 Depression Screening 03/28/2026 03/28/2025 Pneumococcal vaccine <65 Completed 006, 05/04/2004, 03/22/2004, Additional history exists Hepatitis B Screening Completed 03/31/2009 , 01/26/2009, 05/04/2004 Varicella Vaccines Completed 09/03/2009, 0 01/26/2009, 12/31/2004 HPV Vaccines Completed 06/23/2016, 03/04/2015 Meningococcal Vaccine Completed 03/06/2020, 015 Meningococcal B Vaccine Completed 11/25/2021, 03/06 Hepatitis C Screening Completed 03/28/2025 Procedures Procedure Name Priority Date/Time Associated Diagnosis Comments [place] CRITICAL CARE ILL/INJURED PATIENT INIT 30-74 MIN Routine 04/16/2025 3:47 PM HOB MILL OPERATOR EGFR STAT 04/16/2025 2:38 PM HOB MILL OPERATOR DIFFERENTIAL AUTO STAT 04/16/2025 2:3 8 PM HOB MILL OPERATOR HCG, BLOOD, QUANTITATIVE STAT 04/16/2025 2:38 PM HOB MILL OPERATOR TROPONIN T HIGH-SENSITIVITY SERIES (BASELINE, 2HR, 4HR, 6HR) Routine 04/16/2025 2:38 PM HOB MILL OPERATOR PROTIME-INR STAT 04/16/2025 2:38 PM HOB MILL OPERATOR PRO B-TYPE NATRIURETIC PEPTIDE STAT 04/16/2025 2:38 PM HOB MILL OPERATOR MAGNESIUM Routine 04/16/2025 2:38 PM HOB MILL OPERATOR COMPREHENSIVE METABOLIC PANEL STAT 04/16/2025 2:38 PM HOB MILL OPERATOR CBC WITH AUTO DIFFERENTIAL STAT 04/16/2025 2:38 PM HOB MILL OPERATOR APTT STAT 04/16/2025 2:38 PM HOB MILL OPERATOR ECG 12-LEAD Routine 04/16/2025 2:[address] STROKE PROTOCOL WO CONTRAST Critical/Life-T hreatening 04/16/2025 2:21 PM HOB MILL OPERATOR POCT GLUCOSE DEVICE Routine 04/16/2025 2 :14 PM HOB MILL OPERATOR GENETIC TESTING Routine 03/28/2025 12:10 PM CDT URINALYSIS, MICROSCOPIC ONLY Routine 03/28/2025 10:53 AM CDT Encounter for supervision of normal first in first trimester DIFFERENTIAL AUTO Routine 03/28/2025 10: 53 AM CDT Encounter for supervision of normal first in first trimester ANTIBODY SCREEN Routine 03/28/2025 10:53 AM CDT Encounter for supervision of normal first in first trimester ABO/RH Routine 03/28/2025 10:53 AM CDT Encounter for supervision of normal first in first trimester HEMOGLOBIN A1C Routine 03/28/2025 10:53 AM CDT Encounter for supervision of normal first in first trimester TYPE AND SCREEN Routine 03/28/2025 10:53 AM CDT Encounter for supervision of normal first in first trimester VITAMIN D 25 HYDROXY Routine 03/28/2025 10:53 AM CDT Encounter for supervision of normal first in first trimester CBC WITH AUTO DIFFERENTIAL Routine 03/28/2025 10:53 AM CDT Encounter for supervision of normal first in first trimester DRUGS OF ABUSE SCREEN, URINE WITH REFLEX CONFIRMATION Routine 03/28/2025 10:53 AM CDT Encounter for supervision of normal first in first trimester URINALYSIS AND REFLEX TO MICROSCOPIC AND CULTURE Routine 03/28/2025 10:53 AM CDT Encounter for supervision of normal first in first trimester VARICELLA ZOSTER ANTIBODY, IGG Routine 03/28/2025 10:53 AM CDT Encounter for supervision of normal first in first trimester HEPATITIS C ANTIBODY Routine 03/28/2025 10:53 AM CDT Encounter for supervision of normal first in first trimester HEPATITIS B SURFACE ANTIGEN Routine 03/28/2025 10:53 AM CDT Encounter for supervision of normal first in first trimester RPR Routine 03/28/2025 10:53 AM CDT Encounter for supervision of normal first in first trimester HIV 1/2 ANTIBODY PLUS P24 ANTIGEN Routine 03/28/2025 10:53 AM CDT Encounter for supervision of normal first in first trimester RUBELLA IGG Routine 03/28/2025 10:53 AM CDT Encounter for supervision of normal first in first trimester THINPREP PROCESSING (MOLECULAR COMPONENT) Routine 03/28/2025 10:45 AM CDT Encounter for supervision of normal first in first trimester N. GONORRHOEAE/C. TRACHOMATIS AMPLIFICATION Routine 03/28/2025 10:45 AM CDT VAGINITIS PANEL Routine 03/28/2025 10:45 AM CDT Vaginal discharge PAP WITH REFLEX TO HIGH RISK HPV Routine 03/28/2025 10:23 AM CDT Encounter for supervision of normal first in first trimester US OB UNDER 14 WEEKS Schedule Routine, Read Routine (OP Routine) 03/03/2025 9:51 AM CDT Establish gestational age, ultrasound POCT HCG, URINE Routine 02/17/2025 10:01 AM CDT Missed period URINALYSIS, MICROSCOPIC ONLY STAT 01/17/2025 5:19 AM CDT URINALYSIS AND REFLEX TO MICROSCOPIC AND CULTURE STAT 01/17/2025 5:19 AM CDT POCT HCG, URINE Routine 01/17/2025 1:57 AM CDT D-DIMER, QUANTITATIVE STAT 01/17/2025 1:29 AM CDT TROPONIN T HIGH-SENSITIVITY SERIES (BASELINE, 2HR, 4HR, 6HR) STAT 01/17/2025 1:29 AM CDT XR CHEST PA LATERAL 2 VIEWS ED 01/17/2025 1:09 AM CDT ECG 12-LEAD STAT 01/17/2025 1:00 AM CDT EGFR STAT 01/17/2025 12:52 AM CDT DIFFERENTIAL AUTO STAT 01/17/2025 12: 52 AM CDT COMPREHENSIVE METABOLIC PANEL STAT 01/17/2025 12:52 AM CDT CBC WITH AUTO DIFFERENTIAL STAT 01/17/2025 12:52 AM CDT from Last 3 Months Results * [place] CRITICAL CARE ILL/INJURED PATIENT INIT 30-74 MIN (04/16/2025 3:47 PM HOB MILL OPERATOR) Narrative Uziar Og MD - 04/16/2025 3:47 PM HOB MILL OPERATOR Uzair Og MD 04/16/2025 3:47 PM Critical [...] MD IN CLINIC/BEDSIDE ORDERABLES Final Result * Troponin T high-sensitivity series (baseline, 2hr, 4hr, 6hr) (04/16/2025 2:38 PM HOB MILL OPERATOR) Trop T hs <6 <=14 ng/L Comment: Interpretive Data For further hscTnT resources including the diagnostic algorithm and an aid in interpretation, copy and paste this link: https://nrl.testcatalog.org/show/hsTrop Current Interpretive Data last revised 2020. Blood 04/16/2025 2:38 PM HOB MILL OPERATOR 04/16/2025 2:40 PM HOB MILL OPERATOR us Uzair Og MD LAB BLOOD ORDERABLES Final R esult [facility] 1 [facility] Department of Laboratories [place], [place] [id number] * eGFR (04/16/2025 2:38 PM HOB MILL OPERATOR) eGFR >90 >=60 mL/min/1. 73 m2 Comment: [...] last reviewed 2021. Blood 04/16/2025 2:38 PM HOB MILL OPERATOR 04/16/2025 2:40 PM HOB MILL OPERATOR us Uzair Og MD LAB BLOOD ORDERABLES Final R esult [facility] ([place]) 1 [facility] Department [place] [address] * Differential, auto (04/16/2025 2:38 PM HOB MILL OPERATOR) Neutrophil abs 5.86 1.50 - 6.50 K/cumm Imm gran abs 0.02 0.00 - 0.10 K/cumm [facility] ([place]) Lymphocyte abs 1.52 0.80 - 3.30 K/cumm [facility] ([place]) Monocyte abs 0.66 0.20 - 0.80 K/cumm [facility] ([place]) Eosinophil abs 0.13 0.00 - 0.50 K/cumm [facility] ([place]) Basophil abs 0.02 0.00 - 0.10 K/cumm [facility] ([place]) Neutrophil pct 71.5 % [facility] ([place]) Comment: Interpretive Data Percent cell count reference ranges are not reported, since discordance with absolute values may lead to misinterpretation of CBC data. Current Interpretive Data was last revised on 2017. Imm gran pct 0.2 % [facility] ([place]) Comment: Interpretive Data Percent cell count reference ranges are not reported, since discordance with absolute values may lead to misinterpretation of CBC data. Current Interpretive Data was last revised on 2017. Lymphocyte pct 18.5 % [facility] ([place]) Comment: Interpretive Data Percent cell count reference ranges are not reported, since discordance with absolute values may lead to misinterpretation of CBC data. Current Interpretive Data was last revised on 2017. Monocyte pct 8.0 % [facility] ([place]) Comment: Interpretive Data Percent cell count reference [...] on 2017. Basophil pct 0.2 % [facility] ([place]) Comment: Interpretive Data Percent cell count reference ranges are not reported, since discordance with absolute values may lead to misinterpretation of CBC data. Current Interpretive Data was last revised on 2017. Blood 04/16/2025 2:38 PM HOB MILL OPERATOR 04/16/2025 2:40 PM HOB MILL OPERATOR us Uzair Og MD LAB BLOOD ORDERABLES Final R esult [facility] ([place]) 1 [facility] Department [place] [address] * Pro B-type natriuretic peptide (04/16/2025 2:38 PM HOB MILL OPERATOR) NT-proBNP 59 <=300 pg/mL Comment: Interpretive Comments: [...] Revised Date: 2018. Blood 04/16/2025 2:38 PM HOB MILL OPERATOR 04/16/2025 2:40 PM HOB MILL OPERATOR Uzair Og MD LAB BLOOD ORDERABLES Final R esult [facility] ([place]) 1 [facility] Department [place] [address] * (ABNORMAL) CBC with auto differential (04/16/2025 2:38 PM HOB MILL OPERATOR) WBC 8.21 3.80 - 9.90 K/cumm Hgb [...] [facility] ([place]) Blood 04/16/2025 2:38 PM HOB MILL OPERATOR 04/16/2025 2:40 PM HOB MILL OPERATOR Uzair Og MD LAB BLOOD ORDERABLES Final R esult Performing Organization Address City/[facility] Co de Phone Number [facility] ([place]) 1 [facility] [place] [address] * aPTT (04/16/2025 2:38 PM HOB MILL OPERATOR) Pathologist [facility] aPTT 32 26 - 38 sec [facility] ([place]) Comment: Interpretive Data Heparin therapeutic range: 66.0 - 100.0 seconds. Range based on correlation with therapeutic heparin activity range of 0.3 - 0.7 Units/mL. Blood 04/16/2025 2:38 PM HOB MILL OPERATOR 04/16/2025 2:40 PM HOB MILL OPERATOR Uzair Og MD LAB BLOOD ORDERABLES Final R [facility] Performing Organization Address [facility] Co de Phone Number [facility] ([place]) [address] [place] [address] * Protime-INR (04/16/2025 2:38 PM HOB MILL OPERATOR) [facility] PT 11.7 10.2 - 13.5 sec [facility] ([place]) INR 1.04 0.90 - 1.20 [facility] ([place]) Comment: Interpretive data Oral anticoagulant therapeutic ranges: Venous thromboembolism prophylaxis or treatment: 2.0-3.0 CARDIOLOGY Standard range: 2.0-3.0 High-intensity range: 2.5-3.5 Refer to indication-specific guidelines for appropriate target ranges for prosthetic heart valve replacement. Current interpretive data was last revised on 2019. Blood 04/16/2025 2:38 PM HOB MILL OPERATOR 04/16/2025 2:40 PM HOB MILL OPERATOR Uzair Og MD LAB BLOOD ORDERABLES [facility] Performing Organization Address [facility] Co de Phone Number [facility] ([place] 1 [facility] [place] [address] * (ABNORMAL) hCG, blood, quantitative (04/16/2025 2:38 PM HOB MILL OPERATOR) Pathologist [facility] hCG, quant 82,094.0( H) 0.0 - 5.0 IUnits/L Comment: Interpretive Data Male: < 5 IU/L Non- premenopausal Female: <5 IU/L The Teresa hCG Beta Quant assay procedure was used. Results from different manufacturers or methods may not be comparable. Serial testing should be performed using the same method. Interpretive Data was last revised on 2023 Blood 04/16/2025 2:38 PM HOB MILL OPERATOR 04/16/2025 2:40 PM HOB MILL OPERATOR Uzair Og MD LAB BLOOD ORDERABLES Final R esult Performing Organization Address City/[facility]/ZIP Co de Phone Number [facility] [place] ([place]) 1 [facility] [place] [address] * Magnesium (04/16/2025 2:38 PM HOB MILL OPERATOR) [facility] Magnesium 1.8 1.4 - 2.5 mg/dL Blood 04/16/2025 2:38 PM HOB MILL OPERATOR 04/16/2025 2:40 PM HOB MILL OPERATOR Uzair Og MD LAB BLOOD ORDERABLES Final R esult Performing Organization Address City/[facility] Co de Phone Number [place] V[place] ([place]) 1 [place] [address] * (ABNORMAL) Comprehensive metabolic panel (04/16/2025 2:38 PM HOB MILL OPERATOR) [facility] Sodium 134(L) 135 - 145 mmol/L Potassium, pl 3.8 3.3 - 4.9 mmol/L [facility] ([place]) Chloride 102 97 - 110 mmol/L [facility] ([place] CO2 22 22 - 32 mmol/L [facility] ([place] Anion gap 10 2 - 15 mmol/L [facility] ([place] BUN 6 6 - 25 mg/dL [facility] ([place]) Creatinine 0.63 0.60 - 1.10 mg/dL [facility] ([place]) Glucose 87 70 - 199 mg/dL [facility] ([place]) Comment: Interpretive Data Fasting glucose >/= [...] [facility] ([place]) Blood 04/16/2025 2:38 PM HOB MILL OPERATOR 04/16/2025 2:40 PM HOB MILL OPERATOR us Uzair Og MD LAB BLOOD ORDERABLES Final R esult [facility] ([place]) 1 [facility] Department [place] [address] * ECG 12 lead (04/16/2025 2:30 PM HOB MILL OPERATOR) 04/16/2025 2:30 PM HOB MILL OPERATOR Narrative [facility] - 04/16/2025 4:18 PM HOB MILL OPERATOR Vent Rate: 111 bpm RR Interval: 539 msec GA Interval: 155 msec QRS Duration: 90 msec QT Interval: 328 msec QTC Interval: 393 msec P-R-T [place]: 61 - 47 - 39 degrees IMPRESSION: SINUS TACHYCARDIA ABNORMAL RHYTHM ECG Compared to prior EKG, heart rate has increased Electronically Signed By: Arun Cadena MD us Uzair Og MD ECG ORDERABLES Final Result [facility] * CT Stroke Head WO Contrast (04/16/2025 2:21 PM HOB MILL OPERATOR) Anatomical Region Laterality Modality Head N/A Computed Tomogra phy 04/16/2025 2:30 PM HOB MILL OPERATOR Impressions 04/16/2025 2:30 PM HOB MILL OPERATOR 1. No acute intracranial findings. The Critical results were discussed with Earle by Dr. Salinas on 04/16/2025 2:29 PM. Electronically signed by: Macario Salinas M.D. Narrative 04/16/2025 2:30 PM HOB MILL OPERATOR EXAMINATION: CT STROKE HEAD WO CONTRAST HISTORY: [...] lt * POCT glucose (04/16/2025 2:14 PM HOB MILL OPERATOR) Glucose, POC 80 70 - 199 mg/dL Blood 04/16/2025 2:14 PM HOB MILL OPERATOR 04/16/2025 2:14 PM HOB MILL OPERATOR Uzair Og MD LAB POCT ORDERABLES - DEVICE Final Result [place] ([place]) 1 [facility] Department [place] [address] * Genetic Testing (03/28/2025 12:10 PM CDT) [facility] LAB BLOOD ORDERABLES Yessica l Result * Drugs of Abuse Screen, Urine with Reflex Confirmation (03/28/2025 10:53 AM CDT) Amphetamine, ur Not Detected CutOff 500ng/mL Comment: Interpretive Data - Amphetamines: Samples containing greater than 500 ng/mL d-methamphetamine or other cross-reacting amphetamine compounds are reported as positive. Amphetamine immunoassays are subject to significant false positive rates due to cross-reactivity of non-amphetamine drugs. Confirmatory testing required for definitive results. Current Interpretive Data was last reviewed 2022. Barbiturates, ur Not Detected CutOff 200ng/mL [place] [facility] ([place]) Comment: Interpretive Data - Barbiturates: Samples containing greater than 200 ng/mL secobarbital or other cross-reacting barbiturate compounds are reported as positive. False positive and false negative results are possible. Confirmatory testing required for definitive results. Current Interpretive Data was last reviewed 2022. Benzodiazepines, ur Not Detected CutOff 100ng/mL [facility] ([place]) Comment: Interpretive Data - Benzodiazepines: Samples containing greater than 100 ng/mL nordiazepam or other cross-reacting compounds are reported as positive. False positive and false negative results are possible. Confirmatory testing required for definitive results. Current Interpretive Data was last reviewed 2022. Cannabinoids, ur Not Detected CutOff 50 ng/mL [facility] ([place]) Comment: Interpretive Data - Cannabinoids: Samples containing greater than 50 ng/mL delta-9 THC -COOH or other cross- reacting compounds are reported as positive. False positive and false negative results are possible. Confirmatory testing required for definitive results. Current Interpretive Data was last reviewed 2022. Cocaine, ur Not Detected CutOff 150ng/mL [facility] ([place]) Comment: Interpretive Data - Cocaine: Samples containing greater than 150 ng/mL benzoylecgonine or other cross- reacting compounds are reported as positive. False positive and false negative results are possible. Confirmatory testing required for definitive results. Current Interpretive Data was last reviewed 2022. Fentanyl, Ur Not Detected CutOff 5 ng/mL [facility] ([place]) Comment: Interpretive Data - Fentanyl: Samples containing greater than 5 ng/mL norfentanyl, fentanyl, or other cross-reacting fentanyl compounds are reported as positive. False positive and false negative results are possible. Confirmatory testing required for definitive results. Current Interpretive Data was last reviewed 2023. Methadone, ur Not Detected CutOff 300ng/mL [facility] ([place]) Comment: Interpretive Data - Methadone: Samples containing greater than 300 ng/mL d,l-methadone or other cross-reacting compounds are reported as positive. False positive and false negative results are possible. Confirmatory testing required for definitive results. Current Interpretive Data was last reviewed 2022. Opiates, ur Not Detected CutOff 300ng/mL [facility] ([place]) Comment: Interpretive Data - Opiates: Samples containing greater than 300 ng/mL morphine or other cross-reacting compounds are reported as positive. False positive and false negative results are possible. Confirmatory testing required for definitive results. Current Interpretive Data was last reviewed 2022. Oxycodone, ur NOT DETECTED CutOff 100ng/mL [facility] ([place]) Comment: Interpretive Data - Oxycodone: Samples containing greater than 100 ng/mL oxycodone or other cross-reacting compounds are reported as positive. False positive and false negative results are possible. Confirmatory testing required for definitive results. Current Interpretive Data was last reviewed 2022. Phencyclidine, ur Not Detected CutOff 25 ng/mL [place] ([place]) Comment: Interpretive Data - Phencyclidine: Samples containing greater than 25 ng/mL phencyclidine or other cross-reacting compounds are reported as positive. False positive and false negative results are possible. Confirmatory testing required for definitive results. Current Interpretive Data was last reviewed 2022. Urine Creatinine 319 mg/dL [place] ([place]) Comment: Interpretive Data Urine Creatinine: < 10 mg/dL is extremely dilute = or > 10 but < 20 mg/dL is dilute = or > 20 mg/dL is normal Current Interpretive Data was last revised on 2017. Urine 03/28/2025 10:5 3 AM CDT 03/28/2025 1:30 PM CDT Narrative [place] ([place]) - 03/28/2025 4:26 PM CDT Drug Screening is performed by immunoassay for medical purposes. If positive, confirmation testing will be performed for amphetamines, benzodiazepines, cocaine, fentanyl, methadone, opiates, oxycodone, and phencyclidine. us Jason Michael MD LAB URINE ORDERABLES Final Result [place] ([place]) 1 [facility] Department [place] [address] * Differential, auto (03/28/2025 10:53 AM CDT) Neutrophil abs 4.79 1.50 - 6.50 K/cumm Imm gran abs 0.03 0.00 - 0.10 K/cumm [facility] ([place]) Lymphocyte abs 1.24 0.80 - 3.30 K/cumm [facility] ([place]) Monocyte abs 0.47 0.20 - 0.80 K/cumm [facility] ([place]) Eosinophil abs 0.10 0.00 - 0.50 K/cumm [facility] ([place]) Basophil abs 0.02 0.00 - 0.10 K/cumm [facility] ([place]) Neutrophil pct 72.0 % [facility] ([place]) Comment: Interpretive Data Percent cell count reference ranges are not reported, since discordance with absolute values may lead to misinterpretation of CBC data. Current Interpretive Data was last revised on 2017. Imm gran pct 0.5 % [facility] ([place]) Comment: Interpretive Data Percent cell count reference ranges are not reported, since discordance with absolute values may lead to misinterpretation of CBC data. Current Interpretive Data was last revised on 2017. Lymphocyte pct 18.6 % [facility] ([place]) Comment: Interpretive Data Percent cell count reference ranges are not reported, since discordance with absolute values may lead to misinterpretation of CBC data. Current Interpretive Data was last revised on 2017. Monocyte pct 7.1 % [facility] ([place]) Comment: Interpretive Data Percent cell count reference ranges are not reported, since discordance with absolute values may lead to misinterpretation of CBC data. Current Interpretive Data was last revised on 2017. Eosinophil pct 1.5 % [facility] ([place]) Comment: Interpretive Data Percent cell count reference ranges are not reported, since discordance with absolute values may lead to misinterpretation of CBC data. Current Interpretive Data was last revised on 2017. Basophil pct 0.3 % [facility] ([place]) Comment: Interpretive Data Percent cell count reference ranges are not reported, since discordance with absolute values may lead to misinterpretation of CBC data. Current Interpretive Data was last revised on 2017. Blood 03/28/2025 10:5 3 AM CDT 03/28/2025 1:30 PM CDT us Jason Michael MD LAB BLOOD ORDERABLES Final Result [place] ([place]) 1 [facility] Department [place] [address] * HIV 1/2 Antibody plus p24 Antigen Blood (03/28/2025 10:53 AM CDT) HIV 1/2 ab + p24 ag Nonreactive Nonreactive Comment: Nonreactive for HIV-1 antigen and HIV-1/HIV-2 antibodies. No laboratory evidence of HIV infection. If acute HIV infection is suspected, consider testing for HIV-1 RNA. Testing performed by: [facility], [address] [place] [address], [place]., [address] Blood 03/28/2025 10:5 3 AM CDT 03/28/2025 3:33 PM CDT us Jason Michael MD LAB MICROBIOLOGY - GENERAL ORDERABLES Final Result [place] ([place]) 1 [facility] Department [place] [address] * (ABNORMAL) Urinalysis reflex to microscopic and culture Urine, clean voided (03/28/2025 10:53 AM CDT) Color, ur Yellow Yellow Clarity, ur Turbid(A) Clear [facility] ([place]) Specific gravity, ur 1.031(H) 1.003 - 1.030 [facility] ([place]) pH, urine 7.0 [facility] ([place]) Comment: Interpretive Data U rine pH is affected by diet, medications, systemic acid-base disturbances, and renal tubular function. pH may affect urinary stone formation. For example, urine pH below 6.0 may help reduce the tendency for calcium phosphate stones and pH greater than 6.0 may reduce the tendency for uric acid stone formation. Source: [facility] [place] Current Interpretive Data was last revised on 2017 Protein, ur ql Trace Negative [facility] ([place]) Glucose, ur ql Negative Negative [facility] ([place]) Ketones, ur Negative Negative [facility] ([place]) Bilirubin, ur Negative Negative [facility] ([place]) Blood, ur Negative Negative [facility] ([place]) Urobilinogen, ur <2.0 <2.0 mg/dL [facility] ([place]) Nitrite, ur Negative Negative [facility] ([place]) Leukocyte esterase, ur 4+(A) Negative [facility] ([place]) UA reflex comment Reflex to microscopic UA will be performed. [facility] ([place]) Urine, clean voided 03/28/2025 10:53 AM CDT 03/28/2025 1:30 PM CDT Jason Michael MD LAB MICROBIOLOGY - GENERAL ORDERABLES Final Result [facility] ([place]) 1 [facility] Department [place] [address] * (ABNORMAL) CBC with auto differential (03/28/2025 10:53 AM CDT) WBC 6.65 3.80 - 9.90 K/cumm Hgb 10.7(L) 11.9 - 15.5 g/dL [facility] ([place]) Hct 35.5(L) 35.6 - 45.5 % [facility] ([place]) Plt 313 150 - 400 K/cumm [facility] ([place]) MPV 10.8 9.1 - 12.3 fL [facility] ([place]) RBC 4.97 3.90 - 5.20 M/cumm [facility] ([place]) MCV 71.4(L) 81.3 - 96.4 fL [facility] ([place]) MCH 21.5(L) 27.1 - 33.3 pg [facility] ([place]) MCHC 30.1(L) 32.3 - 35.7 g/dL [facility] ([place]) RDW CV 16.7(H) 11.1 - 14.9 % [facility] ([place]) RDW SD 42.5 35.7 - 48.1 fL [facility] ([place]) NRBC abs 0.00 0.00 - 0.01 K/cumm [facility] ([place]) Blood 03/28/2025 10:5 3 AM CDT 03/28/2025 1:30 PM CDT Jason Michael MD LAB BLOOD ORDERABLES Final Result [facility] ([place]) 1 [facility] [place] [address] * Hepatitis C antibody Blood (03/28/2025 10:53 AM CDT) [facility] Hep C Ab Nonreactive Nonreactive Comment: Interpretive Data Nonreactive: Antibodies to HCV not detected. Does NOT exclude the possibility of recent exposure to HCV. Equivocal: Equivocal for HCV antibodies. Supplemental molecular testing will be automatically performed to determine infection status in accordance with current CDC screening recommendations. Reactive: Positive for HCV antibodies. This may represent current or past HCV infection. Supplemental molecular testing will be automatically performed to determine current infection status in accordance with current CDC screening recommendations. Interpretive data was last revised on 2019. Testing performed by: [facility], [address] [place] [address]., [id number] Blood 03/28/2025 10:5 3 AM CDT 03/28/2025 3:35 PM CDT Jason Michael MD LAB MICROBIOLOGY - GENERAL ORDERABLES Final Result Performing Organization Address City/[facility]/ZIP Co de Phone Number [place] ([place]) 1 [place] [address] * ABO/Rh (03/28/2025 10:53 AM CDT) [facility] ABO/Rh A Positive Blood 03/28/2025 10:5 3 AM CDT 03/28/2025 1:30 PM CDT Narrative [place] A[place]EL ([place]) - 03/28/2025 2:37 PM CDT Has the patient had Daratumumab or Isatuximab in the past 6 months?->Unknown Jason Michael MD LAB BLOOD BANK TEST ORDERA BLES Final Result [place] ([place]) 1 [facility] [place] [address] * (ABNORMAL) Vitamin D 25 hydroxy (03/28/2025 10:53 AM CDT) [facility] Vitamin D 25-OH 20(L) 30 - 80 ng/mL Blood 03/28/2025 10:5 3 AM CDT 03/28/2025 1:30 PM CDT Jason Michael MD LAB BLOOD ORDERABLES Final Result [place] ([place]) 1 [facility] [place] [address] * Rubella IgG antibody Blood (03/28/2025 10:53 AM CDT) [facility] Rubella IgG Reactive Comment: Reactive: Results suggest response to immunization or prior exposure to the virus. Testing performed by: [facility], [address] [place] [address], [id number] Blood 03/28/2025 10:5 3 AM CDT 03/28/2025 4:00 PM CDT Jason Michael MD LAB MICROBIOLOGY - GENERAL ORDERABLES Final Result [place] ([place]) [address] [place] [address] * RPR Blood (03/28/2025 10:53 AM CDT) [facility] RPR Nonreactive Nonreactive Comment:Testing performed by : [facility], [address] [place] [address]., [id number] Blood 03/28/2025 10:5 3 AM CDT 03/28/2025 3:35 PM CDT Jason Michael MD LAB MICROBIOLOGY - GENERAL ORDERABLES Final Result [place] ([place]) 1 [place] [address] * Hepatitis B Surface Antigen Blood (03/28/2025 10:53 AM CDT) HepBsAg Nonreactive Nonreactive Comment:Testing performed by : [facility], [address] [place] [address], [place]., [address] Blood 03/28/2025 10:5 3 AM CDT 03/28/2025 3:35 PM CDT Jason Michael MD LAB MICROBIOLOGY - GENERAL ORDERABLES Final Result Performing Organization Address [facility] Co de Phone Number [facility] ([place]) 1 [facility] [place] [address] * (ABNORMAL) Urinalysis, microscopic only (03/28/2025 10:53 AM CDT) Pathologist [facility] WBC, ur 6-10(A) 0 - 5 /HPF RBC, ur 0-2 0 - 2 /HPF [facility] ([place]) Epithelial cells, squamous, ur 6-10(A) 0 - 5 /HPF [facility] ([place]) Bacteria, ur Trace(A) [facility] ([place]) Mucous, ur Present(A) [facility] ([place]) Culture Reflex Comment Reflex conditions for urine culture (WBC >10) not met. [place] [facility] ([place]) Urine, clean voided 03/28/2025 10:53 AM CDT 03/28/2025 1:30 PM CDT Jason Michael MD LAB URINE ORDERABLES Final Result Performing Organization Address [facility] Co de Phone Number [facility] ([place]) 1 [facility] [place] [address] * Antibody screen (03/28/2025 10:53 AM CDT) Mike, indirect, Gel Interpretation Negative ABSC Blood 03/28/2025 10:5 3 AM CDT 03/28/2025 1:30 PM CDT Narrative [facility] [facility] ([place]) - 03/28/2025 2:37 PM CDT Has the patient had Daratumumab or Isatuximab in the past 6 months?->Unknown Jason Michael MD LAB BLOOD BANK TEST ORDERA BLES Final Result Performing Organization Address City/[facility]/ZIP Co de Phone Number [place] ([place]) 1 [facility] [place] [address] * Varicella Zoster IgG antibody Blood (03/28/2025 10:53 AM CDT) VZ[facility] IgG Reactive Reactive Comment: Reactive: Results suggest response to immunization or prior exposure to the virus. Testing performed by: [facility], [address] [facility] [place] [address] Blood 03/28/2025 10:5 3 AM CDT 03/28/2025 4:00 PM CDT Jason Michael MD LAB MICROBIOLOGY - GENERAL ORDERABLES Final Result Performing Organization Address [facility] de Phone Number [place] ([place]) 1 [facility] [place] [address] * (ABNORMAL) Hemoglobin A1c (03/28/2025 10:53 AM CDT) Hgb A1C 5.7(H) 4.0 - 5.6 % Estimated Average Glucose 117 mg/dL [place] [facility] ([place]) Comment: The ADA recommends reporting an estimated Average Glucose (eAG) with all Hemoglobin A1c results using the equation derived from a study of 507 normal and diabetic adults. Minority populations were underrepresented and children were not included. (Diabetes Care 31:4171-4653, 2008). The eAG is not equivalent to a fasting glucose. Blood 03/28/2025 10:5 3 AM CDT 03/28/2025 1:30 PM CDT Jason Michael MD LAB BLOOD ORDERABLES Final Result Performing Organization Address City/[facility]/ZIP Co de Phone Number [place] ([place]) 1 [facility] [place] [address] * ThinPrep processing (Molecular component) (03/28/2025 10:45 AM CDT) ThinPrep processing (Molecular component) Specimen received for processing. [facility] Comment:Testing performed by : [facility], [address] [place]., [address] Endocervical 03/28/2025 10:4 5 AM CDT 03/31/2025 3:19 PM HOB MILL OPERATOR Jason Michael MD LAB BODY FLUIDS AND STOOLS ORDERABLES Final Result Performing Organization Address City/[facility]/ZIP Co de Phone Number [place] [address] [place] [address] [facility] * N. gonorrhoeae/C. trachomatis Amplification Thin prep-Endocervical (03/28/2025 10:45 AM CDT) Pathologist [facility] C. trachomatis Not Detected [facility] Comment:Testing performed by : [facility], [address] [place]., [address] N. gonorrhoeae Not Detected [facility] Comment: Interpretive Data This assay detects Chlamydia trachomatis and Neisseria gonorrhoeae by nucleic acid amplification testing (NAAT). This assay has been cleared by the [place] Food and Drug administration. The performance characteristics of this test have been verified by the [facility] Molecular Infectious Disease laboratory. The performance characteristics of this test have not been evaluated in individuals less than 14 years of age. Current Interpretive Data was last revised on 2023. Testing performed by: [facility], [address] [place] [address]., [id number] Thin prep-Endocervica l 03/28/2025 10:45 AM CDT 03/31/2025 3:19 PM HOB MILL OPERATOR Jason Michael MD LAB MICROBIOLOGY - GENERAL ORDERABLES Final Result [place] [address] [place] [address] [facility] * (ABNORMAL) Vaginitis panel Vaginal (03/28/2025 10:45 AM CDT) Pathologist [facility] Bacterial Vaginosis Detected(A) Not Detected Comment:The BV organism targ ets of this test can be commensal in women; results should be considered in conjunction with clinical presentation to determine the disease status. Sis group Detected(A) Not Detected [facility] Comment:Sis species can be present as commensal organisms in women; results should be considered in conjunction with clinical presentation to determine the disease status. Sis glabrata/ krusei Not Detected Not Detected [facility] Trichomonas DNA Not Detected Not Detected [facility] Vaginal 03/28/2025 10:4 5 AM CDT 03/28/2025 9:08 PM CDT Narrative [facility] - 03/28/2025 11:36 PM CDT The CepMyRoll Xpert Xpress MVP test detects DNA targets from anaerobic bacteria associated with bacterial vaginosis, Sis species associated with vulvovaginal candidiasis, and Trichomonas vaginalis by nucleic acid amplification testing (NAAT). Results should be interpreted in conjunction with other clinical data. This test cannot be used to assess therapeutic success or failure because target nucleic acids may persist following antimicrobial therapy. This test has been cleared by the [place] Food and Drug Administration to aid in the diagnosis of vaginal infections in symptomatic women ages 14 and older. The performance characteristics of this test have been verified by the [facility] Laboratory. Jason Michael MD LAB MICROBIOLOGY - GENERAL ORDERABLES Final Result [address] [place] [address] * Pap with reflex to High Risk HPV and Genotyping (Cytology Component) (03/28/2025 10:23 AM CDT) Thin prep (Pap test) 03/28/2025 10:23 AM CDT 03/28/2025 10:23 AM CDT Narrative PATHOLOGY - 04/01/2025 3:23 PM HOB MILL OPERATOR [facility] Department of Pathology [address] [place] [address] Final Report Note to Patients: This report may contain a detailed description of human tissue sent by a health care provider to the laboratory for pathologic evaluation. The content of this report is essential for diagnosis and may provide important critical findings. This information may be unfamiliar to patients to review without a medical professional present. It is advised that the patient review this report in the presence of a health care provider who can answer questions and explain the details. Patient Name: JACQUIE ROBERTS Address: [address] [place] [id number] Gender: F : 2005 (Age: 19) Service: Location: N : [id number] [facility] #: [id number] Patient Type: SPECIMEN Taken: 03/28/2025 Received: 03/28/2025 Accessioned:: 03/31/2025 Reported: 04/01/2025 Physician(s): Jj Duran M.D. Diagnosis: SOURCE OF SPECIMEN Imaged Thinprep Pap Test w/ Reflex HPV - Obgyn Specialist Cytologic Material: STATEMENT OF ADEQUACY - Specimen satisfactory for interpretation; endocervical/transformation zone component absent or insufficient GENERAL CATEGORIZATION: - Negative for intraepithelial lesion or malignancy INTERPRETATION: - Fungal organisms present, morphologically consistent with ssi species JHOAN Cortez(ASCP) Report Electronically Reviewed and Signed Out By JHOAN Cortez(ASCP) 04/01/2025 15:23:29Specimen(s) Received: A: Imaged Thinprep Pap Test w/ Reflex HPV - Obgyn Specialist Cytologic Material Clinical History: Last Menstrual Period: 12/30/2024 Menstrual History: The Pap test is a screening test used to aid in the detection of cervical cancer and its precursors. It should not be the sole means by which malignant and premalignant lesions are diagnosed. Both false negative and false positive results may occur. It also has poor sensitivity for the detection of endometrial lesions and should not be used to evaluate suspected endometrial abnormalities. For these reasons it is most important to obtain Pap tests at regular intervals. The performance characteristics of some immunohistochemical stains, fluorescence in-situ hybridization tests and immunophenotyping by flow cytometry cited in this report (if any) were determined by the Surgical Pathology Department at [facility] as part of an ongoing quality compliance manager program and in compliance with federally mandated regulations drawn from the Clinical Laboratory Improvement Act of 1988 (CLIA '88). Some of these tests rely on the use of analyte specific reagents and are subject to specific labeling requirements by the US Food and Drug Administration. Such diagnostic tests may only be performed in a facility that is certified by the Department of Health and Human Services as a high complexity laboratory under CLIA '88. The FDA has determined that such clearance or approval is not necessary. This test is used for clinical purposes. It should not be regarded as investigational or for research. Nevertheless, federal rules concerning the medical use of analyte specific reagents require that the following disclaimer be attached to the report: This test was developed and its performance characteristics determined by the Surgical Pathology Department [facility]. It has not been cleared or approved by the U. S. Food and Drug Administration. Jason Michael MD LAB CYTOLOGY ORDERABLES Fi nal Result Performing Organization Address City/State/[facility] Co de Phone Number PATHOLOGY [address] [place] [address] * US Ob Under 14 Weeks (03/03/2025 9:51 AM CDT) Anatomical Region Laterality Modality Abdomen N/A Ultrasound 03/03/2025 10:2 2 AM CDT Impressions 03/03/2025 11:06 AM CDT 1. 7w 6d AGA by this ultrasound. 2. Normal appearing ovaries bilaterally. Narrative Procedure Note Jason Michael MD - 03/03/2025 IMPRESSION: 1. 7w 6d AGA by this ultrasound. 2. Normal appearing ovaries bilaterally. Jason Michael MD IMG OB US PROCEDURES Final Result * (ABNORMAL) POCT hCG, urine (02/17/2025 10:01 AM CDT) HCG, ur, POC Positive(A) Negative Lot Number [id number] QC Backgroud Clear Acceptable QC Control Line Acceptable Urine 02/17/2025 10:0 1 AM CDT us Jason Michael MD POINT OF CARE TEST ORDERAB LES Final Result * (ABNORMAL) Urinalysis reflex to microscopic and culture Urine, clean voided (01/17/2025 5:19 AM CDT) Color, ur Yellow Yellow Clarity, ur Clear Clear [facility] ([place]) Specific gravity, ur 1.044(H) 1.003 - 1.030 [facility] ([place]) pH, urine 6.0 [facility] ([place]) Comment: Interpretive Data U rine pH is affected by diet, medications, systemic acid-base disturbances, and renal tubular function. pH may affect urinary stone formation. For example, urine pH below 6.0 may help reduce the tendency for calcium phosphate stones and pH greater than 6.0 may reduce the tendency for uric acid stone formation. Source: [facility] Current Interpretive Data was last revised on 2017 Protein, ur ql 1+(A) Negative [facility] ([place]) Glucose, ur ql Negative Negative [facility] ([place]) Ketones, ur Negative Negative [facility] ([place]) Bilirubin, ur Negative Negative [facility] ([place]) Blood, ur Negative Negative [facility] [place]) Urobilinogen, ur <2.0 <2.0 mg/dL [facility] ([place]) Nitrite, ur Negative Negative [facility] ([place]) Leukocyte esterase, ur 3+(A) Negative [facility] ([place]) UA reflex comment Reflex to microscopic UA will be performed. [facility] ([place]) Urine, clean voided 01/17/2025 5:19 AM CDT 01/17/2025 5:23 AM CDT us Yumiko Silvestre MD LAB MICROBIOLOGY - GENERAL ORDER ONEIL Final Result [facility] ([place]) 1 [facility] Department [place] [address] * (ABNORMAL) Urinalysis, microscopic only (01/17/2025 5:19 AM CDT) WBC, ur 0-5 0 - 5 /HPF RBC, ur 6-10(A) 0 - 2 /HPF [facility] ([place]) Epithelial cells, squamous, ur 11-20(A) 0 - 5 /HPF [facility] ([place]) Bacteria, ur Trace(A) [facility] ([place]) Mucous, ur Present(A) [facility] ([place]) Culture Reflex Comment Reflex conditions for urine culture (WBC >10) not met. [facility] ([place]) Urine, clean voided 01/17/2025 5:19 AM CDT 01/17/2025 5:23 AM CDT us Yumiko Silvestre MD LAB URINE ORDERABLES Final Resul t [facility] ([place]) 1 [facility] Department [place] [address] * POCT hCG, urine (01/17/2025 1:57 AM CDT) Pathologist [facility] HCG, ur, POC Negative Negative Lot Number [id number] QC Backgroud Clear Acceptable QC Control Line Acceptable Urine 01/17/2025 1:57 AM CDT us Yumiko Silvestre MD POINT OF CARE TEST ORDERABLES Fi nal Result * Troponin T high-sensitivity series (baseline, 2hr, 4hr, 6hr) (01/17/2025 1:29 AM CDT) Pathologist [facility] Trop T hs <6 <=14 ng/L [facility] ([place]) Comment: Interpretive Data For further hscTnT resources including the diagnostic algorithm and an aid in interpretation, copy and paste this link: https://nrl.testcatalog.org/show/hsTrop Current Interpretive Data last revised 2020. Blood 01/17/2025 1:2 9 AM CDT 01/17/2025 1:32 AM CDT us Yumiko Silvestre MD LAB BLOOD ORDERABLES Final Resul t Performing Organization Address [facility] Co de Phone Number [facility] ([place]) 1 [facility] [place] [address] * D-dimer, quantitative (01/17/2025 1:29 AM CDT) D-Dimer 330 <=499 ng/mL FEU [facility] ([place]) Comment: Interpretive data FDA approved the D-dimer, in conjunction with a low or moderate pretest probability score, to exclude venous thromboembolic events (VTE) (PE and DVT) in outpatients when the D-dimer result is < 500 ng/ml FEU. Evidence supports using an age-adjusted D-dimer cut-off for outpatients older than 50 (age x 10) to improve specificity without sacrificing sensitivity. Example: age 68, VTE cut-off 680 ng/ml FEU. References; Schoutnavid HT et al. Brit Med J. 2013;346:f2492. Clotilde et al. Annals Int Med. 2015;163:701-11. Current interpretive data was last revised on 2019. Blood 01/17/2025 1:29 AM CDT 01/17/2025 1:32 AM CDT Yumiko Silvestre MD LAB BLOOD ORDERABLES Final Resul t Performing Organization Address [facility] Co de Phone Number [facility] ([place]) 1 [facility] [place] [address] * XR Chest PA Lateral 2 Views (If patient hemodynamically stable and ambulatory) (01/17/2025 1:09 AM CDT) Anatomical Region Laterality Modality Body, Chest N/A Computed Radiogr aphy 01/17/2025 1:30 AM CDT Narrative 01/17/2025 1:31 AM CDT EXAM DESCRIPTION: XR CHEST PA LATERAL 2 VIEWS REASON FOR STUDY: chest pain C/o left sided chest pain that woke her out of her sleep. Patient also experincing anxiety which is making pain worse No surgical hx Non smoker TECHNIQUE: Frontal and lateral radiographic views of the chest acquired. COMPARISON: Chest x-ray of December 18, 2024. FINDINGS: LUNGS/PLEURA: No focal consolidation or pneumothorax. No pleural effusion. HEART/MEDIASTINUM: Cardiac silhouette is normal. Remaining mediastinal silhouettes are unremarkable. HARDWARE/LINES/TUBES: None. BONES: No acute findings. IMPRESSION: No acute cardiopulmonary abnormality. THIS IS AN ELECTRONICALLY VERIFIED FINAL REPORT 01/17/2025 1:31 AM - Electronically signed by Hayley Irvin M.D. SN: SN Report ID: [id number] Reading Location: [id number] Procedure Note Hayley Irvin MD - 01/17/2025 EXAM DESCRIPTION: XR CHEST PA LATERAL 2 VIEWS REASON FOR STUDY: chest pain C/o left sided chest pain that woke her out of her sleep. Patient also experincing anxiety which is making pain worse No surgical hx Nonsmoker TECHNIQUE: Frontal and lateral radiographic views of the chest acquired. COMPARISON: Chest x-ray of December 18, 2024. FINDINGS: LUNGS/PLEURA: No focal consolidation or pneumothorax. No pleuraleffusion. HEART/MEDIASTINUM: Cardiac silhouette is normal. Remaining mediastinal silhouettes are unremarkable. HARDWARE/LINES/TUBES: None. BONES: No acute findings. IMPRESSION: No acute cardiopulmonary abnormality. THIS IS AN ELECTRONICALLY VERIFIED FINAL REPORT 01/17/2025 1:31 AM - Electronically signed by Hayley Irvin M.D. SN: Report ID: [id number] Reading Location: [id number] us Yumiko Silvestre MD IMG XR PROCEDURES Final Result * ECG 12 lead (01/17/2025 1:00 AM CDT) 01/17/2025 1:00 AM CDT Narrative [facility] - 01/17/2025 8:02 AM CDT Vent Rate: 75 bpm RR Interval: 796 msec GA Interval: 165 msec QRS Duration: 88 msec QT Interval: 363 msec QTC Interval: 392 msec P-R-T [place]: 45 - 28 - 32 degrees IMPRESSION: SINUS RHYTHM POSSIBLE RIGHT VENTRICULAR CONDUCTION DELAY [RSR (QR) IN V1/V2] BORDERLINE ECG compared to prior EKG, heart rate has decreased Electronically Signed By: Arun Cadena MD Yumiko Silvestre MD ECG ORDERABLES Edited Result - Final [facility] * eGFR (01/17/2025 12:52 AM CDT) eGFR >90 >=60 mL/min/1. 73 m2 Comment: [...] interpretive data was last reviewed 2021. Blood 01/17/2025 12:5 2 AM CDT 01/17/2025 1:15 AM CDT us Yumiko Silvestre MD LAB BLOOD ORDERABLES Final Resul t [facility] ([place]) 1 [facility] Department of Laboratories [place], [place] [id number] * Differential, auto (01/17/2025 12:52 AM CDT) Neutrophil abs 4.66 1.50 - 6.50 K/cumm Imm gran abs 0.03 0.00 - 0.10 K/cumm [facility] ([place]) Lymphocyte abs 2.25 0.80 - 3.30 K/cumm [facility] ([place]) Monocyte abs 0.61 0.20 - 0.80 K/cumm [facility] ([place]) Eosinophil abs 0.14 0.00 - 0.50 K/cumm [facility] ([place]) Basophil abs 0.04 0.00 - 0.10 K/cumm [facility] ([place]) Neutrophil pct 60.3 % [facility] ([place]) Comment: Interpretive Data Percent cell count reference ranges are not reported, since discordance with absolute values may lead to misinterpretation of CBC data. Current Interpretive Data was last revised on 2017. Imm gran pct 0.4 % [facility] ([place]) Comment: Interpretive Data Percent cell count reference ranges are not reported, since discordance with absolute values may lead to misinterpretation of CBC data. Current Interpretive Data was last revised on 2017. Lymphocyte pct 29.1 % [facility] ([place]) Comment: Interpretive Data Percent cell count reference ranges are not reported, since discordance with absolute values may lead to misinterpretation of CBC data. Current Interpretive Data was last revised on 2017. Monocyte pct 7.9 % [facility] ([place]) Comment: Interpretive Data Percent cell count reference ranges are not reported, since discordance with absolute values may lead to misinterpretation of CBC data. Current Interpretive Data was last revised on 2017. Eosinophil pct 1.8 % [facility] ([place]) Comment: Interpretive Data Percent cell count reference ranges are not reported, since discordance with absolute values may lead to misinterpretation of CBC data. Current Interpretive Data was last revised on 2017. Basophil pct 0.5 % [facility] ([place]) Comment: Interpretive Data Percent cell count reference ranges are not reported, since discordance with absolute values may lead to misinterpretation of CBC data. Current Interpretive Data was last revised on 2017. Blood 01/17/2025 12:5 2 AM CDT 01/17/2025 1:15 AM CDT us Yumiko Silvestre MD LAB BLOOD ORDERABLES Final Resul t [facility] ([place]) 1 [facility] [place] [address] * (ABNORMAL) CBC with auto differential (01/17/2025 12:52 AM CDT) WBC 7.73 3.80 - 9.90 K/cumm Hgb 11.3(L) 11.9 - 15.5 g/dL [facility] ([place]) Hct 38.6 35.6 - 45.5 % [facility] ([place]) Plt 278 150 - 400 K/cumm [facility] ([place]) MPV 10.6 9.1 - 12.3 fL [facility] ([place]) RBC 5.29(H) 3.90 - 5.20 M/cumm [facility] ([place]) MCV 73.0(L) 81.3 - 96.4 fL [facility] ([place]) MCH 21.4(L) 27.1 - 33.3 pg [facility] ([place]) MCHC 29.3(L) 32.3 - 35.7 g/dL [facility] ([place]) RDW CV 17.1(H) 11.1 - 14.9 % [facility] ([place]) RDW SD 44.8 35.7 - 48.1 fL [facility] ([place]) NRBC abs 0.00 0.00 - 0.01 K/cumm [facility] ([place]) Blood Venous blood specimen / Unknown 01/17/2025 12:52 AM CDT 01/17/2025 1:15 AM CDT us Yumiko Silvestre MD LAB BLOOD ORDERABLES Final Resul t [facility] ([place]) 1 [facility] [employer] [place] [address] * (ABNORMAL) Comprehensive metabolic panel (01/17/2025 12:52 AM CDT) Sodium 139 135 - 145 mmol/L [facility] ([place]) Potassium, pl 5.0(H) 3.3 - 4.9 mmol/L [facility] ([place]) Chloride 104 97 - 110 mmol/L [facility] ([place]) CO2 21(L) 22 - 32 mmol/L [facility] ([place]) Anion gap 14 2 - 15 mmol/L [facility] ([place]) BUN 20 6 - 25 mg/dL [facility] ([place]) Creatinine 0.62 0.60 - 1.10 mg/dL [facility] ([place]) Glucose 97 70 - 199 mg/dL [facility] ([place]) [...] interpretive data was last revised 2022. Calcium 9.3 8.5 - 10.3 mg/dL [facility] Bilirubin, total 0.3 0.1 - 1.2 mg/dL [facility] Protein, pl 8.5 6.5 - 8.5 g/dL [facility] Albumin 4.2 3.5 - 5.0 g/dL [facility] ([place]) Alk phos 89 40 - 130 Units/L [facility] ([place]) ALT 12 7 - 45 Units/L [facility] ([place]) Comment:Hemolysis present. R esults may be affected. AST 27 10 - 45 Units/L [facility] ([place]) Comment:Hemolysis present. R esults may be affected. Blood 01/17/2025 12:5 2 AM CDT 01/17/2025 1:15 AM CDT us Yumiko Silvestre MD LAB BLOOD ORDERABLES Final Resul t [facility] ([place]) 1 [facility] Department [place] [address] from Last 3 Months Insurance [facility] Care Teams Turbine Blade Assembler Relationship Specialty Start Date End Date Melissa Street MD [address] [place] [address] [address] [place] [address] PCP - General 01/07/18
--- OUTSIDE RECORDS SUMMARY | 2025-04-16 19:19 | XMS_ITS | Clinical Summary ---
Author Organization [facility] Address [address] [place] [address] Phone Care Team Providers Care Competitive Intelligence Manager Name Role Phone Provider, None Primary Care Provider Unavailabl e Allergies No known active allergies Medications No known medications Encounters Date Type Department Care Team Description 01/20/2025 Telephone [facility] [address] [address] Angie Lobo Patient Outreach 01/17/2025 10:33 PM CDT - 01/17/2025 11:35 PM CDT Emergency [facility] Emergency [address] [place] [address] Vin Rodriguez DO Chest pain Discharge Disposition: Discharged to home or Selfcare 01/17/2025 8:39 AM CDT - 01/17/2025 9:27 AM CDT Emergency [facility] Emergency [address] [place] [id number] Karine Alcaraz MD Discharge Disposition: Left Against Medical Advice 01/17/2025 Travel from Last 3 Months Social History Tobacco Use Types Packs/Day Years Used Date Smoking Tobacco: Never Smokeless Tobacco: Never Tobacco Cessation:Counseling Given: Not Answered Alcohol Use Standard Drinks/Week Comments Yes 0 (1 standard drink = 0.6 oz pure alcohol) 2 days per week 1 can of margueritta Comments No Sex and Gender Information Value Date Recorded Sex Assigned at Not on file 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 Gender Identity Not on file Sexual Orientation Not on file Last Filed Vital Signs Vital Sign Reading Time Taken Comments Blood Pressure 135/77 01/17/2025 11:28 PM CDT Pulse 78 01/17/2025 11:28 PM CDT Temperature 36.8 C (98.3 F) 01/17/2025 10:26 PM CDT Respiratory Rate 17 01/17/2025 11:2 8 PM CDT Oxygen Saturation 100% 01/17/2025 11: 28 PM CDT Inhaled Oxygen Concentration - - Weight 103.5 kg (228 lb 2.8 oz) 025 10:26 PM CDT Height 170.2 cm (5' 7) 01/17/2025 10:2 6 PM CDT Body Mass Index 35.74 01/17/2025 10:26 PM CDT Plan of Treatment Health Maintenance Due Date Last Done Comments Hepatitis C Virus (HCV) Screening 2003 TdaP Immunization 2003 Varicella Immunization (1 of 2 - 13+ 2-dose series) 10/11/2016 Human Papillomavirus (HPV) Immunization (1 - 3-dose series) 10/11/2018 Meningococcal B Immunization (1 of 2 - Standard) 2019 Hepatitis B Immunization (1 of 3 - 19+ 3-dose series) 10/11/2022 Pap Smear 10/11/2024 Influenza Immunization (#1) 2025 SARS-COV-2 Immunization (1 - season) 2025 Respiratory Syncytial Virus (RSV) Immunization (Adult) (1 - 1-dose 75+ series) 10/11/2078 Meningococcal Immunization (ACWY) Aged Out No longer eligible based on patient's age to complete this topic Pneumococcal Immunization Combined Aged Out No longer eligible based on patient's age to complete this topic Rotavirus Immunization Aged Out No lo nger eligible based on patient's age to complete this topic Procedures Procedure Name Priority Date/Time Associated Diagnosis Comments POCT URINE HCG () STAT 01/17/2025 11:16 PM CDT XR CHEST SINGLE VIEW PORTABLE STAT 01/17/2025 11:00 PM CDT EKG 12 LEAD STAT 01/17/2025 10:38 PM CDT EKG 12 LEAD STAT 01/17/2025 8:45 AM CDT EKG SCAN 01/17/2025 12:00 AM CDT EKG SCAN 01/17/2025 12:00 AM CDT from Last 3 Months Results * POCT Urine HCG () (01/17/2025 11:16 PM CDT) POC URINE Negative POC URINE CONTROL [place]celain [employer] [place] Urine 01/17/2025 11:1 6 PM CDT us Vin Welsh Jennifer DO POINT OF CARE TESTING ( MANUAL) Final Result * XR CHEST SINGLE VIEW PORTABLE (01/17/2025 11:00 PM CDT) Anatomical Region Laterality Modality Chest N/A Digital Radiogra phy 01/17/2025 11:5 9 PM CDT Impressions 01/18/2025 12:01 AM CDT IMPRESSION: No acute cardiopulmonary abnormality. Narrative 01/18/2025 12:01 AM CDT EXAM DESCRIPTION: XR CHEST SINGLE VIEW PORTABLE REASON FOR STUDY: c/o chest pain and left breast tenderness onset approx 0200hrs this morning. Recent DX of pleurisy HX: Anemia, Anxiety TECHNIQUE: 1 radiographic view(s) of the chest. COMPARISON: None FINDINGS: LUNGS: No focal opacity, pleural effusion, or pneumothorax. HEART/MEDIASTINUM: Cardiac silhouette normal in size. Mediastinal and hilar contours appear normal. LINES/TUBES: None. BONES: No acute osseous abnormality. THIS IS AN ELECTRONICALLY VERIFIED FINAL REPORT 01/17/2025 11:59 PM - Electronically signed by Gage Dunne M.D. KT: ENRRIQUE Report ID: [id number] Reading Location: [id number] Procedure Note Gage Dunne MD - 01/18/2025 EXAM DESCRIPTION: XR CHEST SINGLE VIEW PORTABLE REASON FOR STUDY: c/o chest pain and left breast tenderness onset approx 0200hrs this morning. Recent DX of pleurisy HX: Anemia, Anxiety TECHNIQUE: 1 radiographic view(s) of the chest. COMPARISON: None FINDINGS: LUNGS: No focal opacity, pleural effusion, or pneumothorax. HEART/MEDIASTINUM: Cardiac silhouette normal in size. Mediastinal and hilar contours appear normal. LINES/TUBES: None. BONES: No acute osseous abnormality. THIS IS AN ELECTRONICALLY VERIFIED FINAL REPORT 01/17/2025 11:59 PM - Electronically signed by Gage Dunne M.D. KT: ENRRIQUE Report ID: [id number] Reading Location: [place] [address] IMPRESSION: No acute cardiopulmonary abnormality. us Vin Rodriguez DO IMG DIAGNOSTIC ORDERABL ES Final Result * EKG 12 LEAD (01/17/2025 10:38 PM CDT) Only the most recent of2 resultswithin the time period is included. Ventricular Rate 79 BPM EXTERNAL EKG Atrial Rate 79 BPM EXTERNAL EKG P-R Interval 186 ms EXTERNAL EKG QRS Duration 82 ms EXTERNAL EKG Q-T Duration 356 ms EXTERNAL EKG QTC CALCULATION 408 ms EXTERNAL EKG P Earp 40 degrees EXTERNAL EKG R Earp 27 degrees EXTERNAL EKG T Earp 33 degrees EXTERNAL EKG 01/17/2025 10:3 8 PM CDT Impressions EXTERNAL EKG - 01/20/2025 8:04 AM CDT Normal sinus rhythm Normal ECG When compared with ECG of 17-JAN-2025 08:45, No significant change was found Confirmed by Nataliya Adams ([id number]) on 01/20/2025 8:04:49 AM Narrative Procedure Note Nataliya Adams MD PhD - 01/20/2025 IMPRESSION: Normal sinus rhythm Normal ECG When compared with ECG of 17-JAN-2025 08:45, No significant change was found Confirmed by Nataliya Adams ([id number]) on 01/20/2025 8:04:49 AM us Vin Rodriguez DO IMG ECG ORDERABLES Yessica l Result EXTERNAL EKG * EKG SCAN (01/17/2025 12:00 AM CDT) Only the most recent of2 resultswithin the time period is included. 01/17/2025 us Provider Scan IMG ECG ORDERABLES Final Result RESULTING AGENCY from Last 3 Months Insurance MEDICAID [employer] Care Teams Competitive Intelligence Manager Relationship Specialty Start Date End Date Provider, None [place] PCP - General 01/17/25
--- OUTSIDE RECORDS SUMMARY | 2025-04-16 19:19 | XMS_ITS | Encounter Summary ---
Author Organization [facility] Address [address] [place] [address] Care Team Providers Care Pcat Instructor Name Role Phone Melissa Street MD Primary Care Pr ovider Encounter Details Date Type Department Care Team (Late st Contact Info) Description 03/31/2025 Results Follow-Up [facility] [address] [place] [address] [address] [place] [address] Jason Michael MD [address] [place] [address] [address] [place] [address] Vaginitis panel Vaginal, Drugs of Abuse Screen, Urine with Reflex Confirmation, Rubella IgG antibody Blood, Additional followed-up results: 12 Social History Tobacco Use Types Packs/Day Years [...] of Binge Drinking Not on file 02/28 Economy Depression Scale Answer Date Recorded Economy Depression Scale Total 4 03/28/2025 The thought of harming myself has occurred to me . Never 03/28/2025 Personal Safety Answer Date Recorded Have you ever been in or are you currently in a harmful physical or emotional relationship or is someone making you feel afraid or unsafe? Denies 01/17/2025 Estimated Date of Delivery Comme nts Yes 10/14/2025 Based on Ultraso und Sex and Gender Information Value Date Recorded Sex Assigned at Not on file Legal Sex Female 7:14 PM CDT Gender Identity Not on file Sexual Orientation Not on file documented as of this encounter Miscellaneous Notes * Result Encounter Note - Jason Michael MD - 03/31/2025 12:18 PM CONDUCTOR FREIGHT Please call patient with results. Low vitamin D needs replaced and posted. UCTOR FREIGHT * Result Encounter Note - Jason Michael MD - 03/31/2025 12:18 PM CONDUCTOR FREIGHT Please call patient with results. 11 weeks 6 days . Let's treat for both with either Metrogel of Flagyl and either Terazol or Diflucan. UCTOR FREIGHT documented in this encounter Plan of Treatment Not on file documented as of this encounter Visit Diagnoses Not on filedocumented in this encounter Care Teams Pcat Instructor Relationship Specialty Start Date End Date Melissa Street MD [address] [facility] [address] [place] [address] PCP - General 01/07/18 documented as of this encounter
--- OUTSIDE RECORDS SUMMARY | 2025-04-16 19:20 | XMS_ITS | Clinical Summary ---
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 01/14/2025 Seizure-like activity 01/13/2025 Facial droop 01/13/2025 Left-sided weakness 01/13/2025 Chronic anemia 01/13/2025 Spells of trembling 01/13/2025 Anemia 01/12/2025 Anxiety 01/12/2025 Stutter 01/12/2025 Prediabetes 01/12/2025 Elevated blood pressure read ing without diagnosis of hypertension 01/12/2025 Encounters Date Type Department Care Team Description 04/08/2025 External Device Data [facility] ABSTRACTION Provider, Abstract 04/08/2025 External Device Data [facility] Provider, Abstract 04/02/2025 External Device Data [facility] Provider, Abstract 03/25/2025 External Device Data [facility] Provider, Abstract 03/11/2025 External Device Data [facility]STRACTION Provider, Abstract 03/11/2025 External Device Data [facility]STRACTION Provider, Abstract 02/18/2025 External Device Data [facility]STRACTION Provider, Abstract 02/18/2025 External Device Data [facility] ABSTRACTION Provider, Abstract 02/12/2025 External Device Data [facility] ABSTRACTION Provider, Abstract 02/11/2025 External Device Data [facility]STRACTION Provider, Abstract 01/22/2025 External Device Data [facility] ABSTRACTION Provider, Abstract 01/15/2025 External Device Data [facility] ABSTRACTION Provider, Abstract 01/14/2025 External Device Data [facility] ABSTRACTION Provider, Abstract 01/12/2025 4:56 PM CDT - 01/14/2025 5:30 PM CDT Hospital Encounter [facility] [address] [place] [address] Samson Pickering MD Longtine, Anne, MD Baig, Kamran A, MD Randhawa, Kota Madera MD Functional neurological symptom disorder with abnormal movement Discharge Disposition: Home or Self Care from Last 3 Months Family History Medical History Relation Name Comments No Known Problems Other Relation Name Status Comments Other Social History Tobacco Use Types Packs/Day Years Used Date Smoking Tobacco: Never Tobacco Cessation:Counseling Given: Not Answered Alcohol Use Standard Drinks/Week Comments Yes 0 (1 standard drink = 0.6 oz pure alcohol) couple times a month, every other week. Feeling Safe Answer Date Recorded Are you in a relationship wi th someone who hurts you emotionally and/or physically? No 01/12/2025 Food Insecurity Answer Date Recorded Patient needs follow up regardin 01/12/2025 Transportation Needs Answer Date Record ed Patient needs follow up regardin 01/12/2025 Utility Needs Answer Date Recorded Patient needs follow up regardin 01/12/2025 Comments Unknown Sex and Gender Information Value Date Recorded Sex Assigned at Not on file Legal Sex Female 4:40 PM CDT Gender Identity Not on file Sexual Orientation Not on file Last Filed Vital Signs Vital Sign Reading Time Taken Comments Blood Pressure 124/74 01/14/2025 4:00 PM CDT Pulse 66 01/14/2025 4:00 PM CDT Temperature 36.6 C (97.9 F) 01/14/2025 4:00 PM CDT Respiratory Rate 25 01/14/2025 4:00 PM CDT Oxygen Saturation 100% 01/14/2025 4:00 PM CDT Inhaled Oxygen Concentration - - Weight 104.3 kg (230 lb) 01/12/2025 9:58 PM CDT Height 170.2 cm (5' 7) 01/12/2025 9:58 PM CDT Body Mass Index 36.02 01/12/2025 9:58 PM CDT Plan of Treatment Health Maintenance Due Date Last Done Comments CHLAMYDIA SCREENING (ANNUAL) 11-24 YEARS 10/11/2014 HPV VACCINES (1 - 3-dose series) 10/11/2018 DTAP/TDAP/TD VACCINES (1 - Tdap) 10/11/2022 HEPATITIS B VACCINES (1 of 3 - 19+ 3-dose series) 09/26 CERVICAL CANCER SCREENING 10/11/2024 HPV/Cotest (21-29) 10/11/2024 PAP SMEAR 10/11/2024 INFLUENZA VACCINE (#1) 2024 Procedures Procedure Name Priority Date/Time Associated Diagnosis Comments TELEMETRY REPORT 01/17/2025 4:19 PM CDT EEG 24 HOUR Pending Discharge 01/14/2025 11: 35 AM CDT EKG 12-LEAD Stat 01/14/2025 10:12 AM CDT from Last 3 Months Results * TELEMETRY REPORT (01/17/2025 4:19 PM CDT) us Provider Scanning ECG ORDERABLES Final Result * EEG 24 HOUR (01/14/2025 11:35 AM CDT) Narrative Iliana Hart MD - 01/14/2025 11:35 AM CDT Iliana Hart MD 01/14/2025 1:01 PM Video-EEG Report Patient Name: Jacquie Roberts [facility] Medical Record Number (MRN): [id number] Date of (): 2005 Start Time: 01/13/2025 1000 End Time: 01/14/2025 0958 Introduction: Ms. Roberts is a 19 y.o. female who presented with seizure-like activity. This is a report of continuous video-EEG monitoring. High definition digital video and digital EEG were recorded continuously. Electrodes were placed following the 10/20 International System. EEG Description: The awake background included a 10 Hz posterior rhythm which attenuated with eye opening and activity. During drowsiness, identified by ocular signs and alpha attenuation, there was intermittent, diffuse, asynchronous theta activity admixed with 2-4 Hz polymorphic frontotemporal delta activity. As the record progressed, stage II sleep was identified by vertex waves, sleep spindles and K-complexes. Hyperventilation and photic strobe stimulation were not performed. There were no focal, lateralized or epileptiform abnormalities. The EKG was observed during the recording. There were 2 clinical events captured at 1153 on 01/13/25 and 0643 on 01/14/25. Patient had rhythmic body shaking. There were no significant EEG changes beyond EMG and/or movement artifacts during these events. The patient's video portion was simultaneously reviewed as appropriate with the EEG recording. Interpretation: No seizures were captured during the recording. The recorded events had no EEG correlate. The interictal EEG was normal awake, drowsy and sleep. Iliana Hart MD Neurology us Valeriano Zepeda MD NEUROLOGY ORDERABLES Ed ited Result - Final * EKG 12-LEAD (01/14/2025 10:12 AM CDT) 01/14/2025 10:1 2 AM CDT Narrative INTERFACE SYSTEM - 01/14/2025 11:41 [place] [address] Test Date: 2025-01-14 Pat Name: JACQUIE ROBERTS Department: 41 Room: [facility] 1 Gender: Female Solderer Dipper: erg : 2005 Requested By: SAMSON PICKERING Order Number: [id number] Reading MD: Chaz Clarke Measurements Intervals [place] Rate: 73 P: 12 OR: 176 QRS: 35 QRSD: 85 T: 41 QT: 365 QTc: 403 Interpretive Statements Sinus rhythm Electronically Signed On 01-14-2025 11:41:06 CDT by Chaz Clarke Procedure Note Chaz Clarke MD - 01/14/2025 [place] [address] Test Date: 2025-01-14 Pat Name: JACQUIE ROBERTS Department: 41 Room: [facility] 1 Gender: Female Solderer Dipper: erg : 2005 Requested By: SAMSON PICKERING Order Number: [id number] Reading MD: Chaz Clarke Measurements Intervals [place] Rate: 73 P: 12 OR: 176 QRS: 35 QRSD: 85 T: 41 QT: 365 QTc: 403 Interpretive Statements Sinus rhythm Electronically Signed On 01-14-2025 11:41:06 CDT by Chaz Clarke us Kota Santy Nelson MD ECG ORDERABLES Yessica l Result INTERFACE SYSTEM Refer to clinic/hospital department from Last 3 Months Insurance [facility] MEDICAID [employer] Commercial Advance Directives For more information, please contact: [phone] * Full Code (Latest Code Status on File) Date Activated Date Inactivated Comments 01/12/2025 9:39 PM 01/14/2025 7:41 PM
--- OUTSIDE RECORDS SUMMARY | 2025-04-16 19:21 | XMS_ITS | Data Portability ---
[facility] Address [address] [facility] [place] [address] Care Team Providers Care Scientific Manager Name Role Phone ADALGISA CARLISLE Primary Care Provider Unavail able Assessment No assessment recorded. Plan of Treatment Reminders Order Date Submit Date Provider Last Modified By Organization Details Last Modified Time Details Appointments None recorded. Lab HbA1c (hemoglob in A1c), blood 2024 025 [facility], [address] [facility], [facility], [place], [address], 13:11:56 ferritin, serum or plasma 2024 025 [facility], [address] [facility], [facility], [place], [address], 13:11:58 TSH, ultra-sen sitive, serum 2024 025 [facility], [address] [facility], [facility], [place], [address], 13:11:55 test, urine 2024 025 YUDELKA In-Office Order, Internal Use Only DO Not Attach Compendium DO Not Attach Compendium, Do Not Delete/merge, [id number] 16:11:15 beta-HCG, qualitati ve, serum or plasma 2024 025 [facility], [address] [facility], [facility], [place], [address], 5 13:11:57 HbA1c (hemoglob in A1c), blood 2022 023 [facility], [address] [facility], [facility], [place], [address], 3 11:12:51 CMP, serum or plasma 2022 023 [facility], [address] [place] [address], [facility], [place], [address], 3 11:13:02 lipid panel, serum 2022 023 [facility], [address] [place] [address], [facility], [place], [address], 3 11:13:01 TSH + free T4, serum 2022 023 [facility], [address] [place] [address], [facility], [place], [address], 3 11:12:49 vitamin D, 25-hydrox y, total, serum 2022 023 [facility], [address] [place] [address], [facility], [place], [address], 3 11:12:54 chlamydia trachomat is + neisseria gonorrhoe ae + trichomon as vaginalis DNA panel, JORDAN+probe , unspecifi ed specimen 2022 023 [facility], [address] [place] [address], [facility] [address], [place], [address], 3 11:12:48 prolactin , serum 2022 023 [facility], [address] [place] [address], [facility], [place], [address], 3 11:12:52 CBC w/ auto diff 2022 023 [facility], [address] [facility] [address], [place], [address], 11:13:03 iron + total iron-bind ing capacity (TIBC), serum 2022 023 [facility], [address] [facility] [address], [place], [address], 11:12:51 ferritin, serum or plasma 2022 023 [facility], [address] [facility] [address], [place], [address], 11:12:53 vitamin B12 + folate, serum or blood 2022 023 [facility], [address] [facility] [address], [place], [address], 11:12:50 test, urine 2022 023 [email or web address] In-Office Order, Internal Use Only DO Not Attach Compendium DO Not Attach Compendium, Do Not Delete/merge, 11:55:12 RPR (rapid plasma reagin), serum 2021 022 [facility], [address] [facility] [address], [place], [address], 07:11:58 hepatitis C Ab, signal-to -cutoff, serum or plasma 2021 022 [facility], [address] [facility] [address], [place], [address], 07:11:56 test, urine 2021 022 YUDELKA In-Office Order, Internal Use Only DO Not Attach Compendium DO Not Attach Compendium, Do Not Delete/merge, [id number] 17:16:59 lipid panel, serum 2021 022 [facility], [address], [place], [address], 07:11:49 HbA1c (hemoglob in A1c), blood 2021 022 [facility], [address], [place], [address], 07:11:57 CMP, serum or plasma 2021 022 [facility], [address], [place], [address], 07:11:49 vitamin D, 25-hydrox y, total, serum 2021 022 [facility], [address], [place], [address], 07:11:58 unlisted lab - chlamydiA /GC amplifica tion-[id number] 05-U 2021 022 [facility], [address], [place], [address], 07:11:57 HIV 1 + 2, meaningfu l use set 2021 022 [facility], [address], [place], [address], 07:11:59 CBC w/ auto diff 2021 022 [facility], [address], [place], [address], 07:11:48 iron + total iron-bind ing capacity (TIBC), serum 2021 022 [facility], [address], [place], [address], 07:11:56 ferritin, serum or plasma 2021 022 [facility], 102 [facility], [place], [address], 07:12:00 Referral None recorded. Procedures None recorded. Surgeries None recorded. Imaging US, echocardi ogram, transthor acic, complete - Authoriza tion # [id number] from 11/01/24-. 2024 025 [facility], 1 [facility] [place], [address], 5 12:11:12 electroca rdiogram, routine ECG, 12 leads min [address], 1 [facility] [place], [address], 18:40:40 Medication Orders ondansetr on 4 mg disintegr ating tablet 2024 025 [facility]armacy #[id number], [address], [place], [address], 5 05:02:41 ferrous sulfate 325 mg (65 mg iron) tablet 2024 025 [id number] [address], [place], [address], 5 05:01:44 FE /20 (28) 1 mg-20 mcg (21)/75 mg (7) tablet 2020 [id number], [address], [place], [address], 3 11:35:01 Patient TargetsNo targets recorded. 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 I agree with the documented assessment and plan Perry Tejeda MD [email or web address] Not available 10/29/2024 16:03:29 01/20/2025 [id number] A healthy lifestyle: care instructions [email or web address] Not available 01/21/2025 14:05:20 -Wear a supporti ve bra to help reduce chest discomfort. -Take acetaminophen as needed for pain. Apply warm compresses if helpful. -Continue MiraLAX if needed but decrease dose if nausea worsens. Stay hydrated and eat high-fiber foods. -Start taking your iron supplement daily as prescribed to treat anemia. -Take Zofran as needed for nausea (do not exceed prescribed dose). -Eat small, frequent meals to help reduce nausea. -Seek emergency care for worsening chest pain, shortness of breath, fainting, severe abdominal pain, or black/tarry stools. [email or web address] Not available 01/21/2025 14:04:59 -Discussed POC -Pt to follow up with routine f/u with pcp [email or web address] Not available 01/21/2025 14:05:20 Reason for Referral None Reported. Results Created Date Observation Date Name Description Value Unit Range Abnormal Flag Note LastModifiedBy Organization Detail LastModifiedTime 11/12/1911/12/2020 CBC w/ auto diff WBC 6.3 x10e3 /uL 3.4-10 .8 Not Available [facility] ([facility]) [address] [facility], [place], [address], 11/12/2020 07:11:55 06/16/20 21 11/12/2020 CBC w/ auto diff RBC 4.83 x10e6 /uL 3.77-5 .28 Not Available [facility] ([facility]) [address] [place], [address], 11/12/2020 07:11:55 11/12/19 21 11/12/2020 CBC w/ auto diff hemoglobin 10.0 g/dL 11.1-1 5.9 below low normal Not Available [facility] ([facility]) [address] [place], [address], 11/12/2020 07:11:55 11/12/19 21 11/12/2020 CBC w/ auto diff hematocrit 34.5 % 34.0-4 6.6 Not Available [facility] ([facility]) [address] [place], [address], 11/12/2020 07:11:55 11/12/19 21 11/12/2020 CBC w/ auto diff MCV 71 fL 79-97 below low normal Not Available [facility] ([facility]) [address] [place], [address], 11/12/2020 07:11:55 11/12/19 21 11/12/2020 CBC w/ auto diff MCH 20.7 pg 26.6-3 3.0 below low normal Not Available [facility] ([facility]) [address] [place], [address], 11/12/2020 07:11:55 11/12/19 21 11/12/2020 CBC w/ auto diff MCHC 29.0 g/dL 31.5-3 5.7 below low normal Not Available [facility] ([facility]) [address] [place], [address], 11/12/2020 07:11:55 11/12/19 21 11/12/2020 CBC w/ auto diff RDW 15.1 % 11.7-1 5.4 Not Available [facility] ([facility]) [address] [facility], [address], 11/12/2020 07:11:55 11/12/19 21 11/12/2020 CBC w/ auto diff platelets 348 x10e3 /uL 150-45 0 Not Available [facility] ([facility]) [address] [facility], [place], [address], 11/12/2020 07:11:55 11/12/19 21 11/12/2020 CBC w/ auto diff neutrophils 58 % not estab. Not Available [facility] ([facility]) [address] [facility], [place], [address], 11/12/2020 07:11:55 11/12/19 21 11/12/2020 CBC w/ auto diff lymphs 29 % not estab. Not Available [facility] ([facility]) [address] [facility], [place], [address], 11/12/2020 07:11:55 11/12/19 21 11/12/2020 CBC w/ auto diff monocytes 10 % not estab. Not Available [facility] ([facility]) [address] [facility], [place], [address], 11/12/2020 07:11:55 11/12/19 21 11/12/2020 CBC w/ auto diff eos 2 % not estab. Not Available [facility] ([facility]) [address] [facility], [place], [address], 11/12/2020 07:11:55 11/12/19 21 11/12/2020 CBC w/ auto diff basos 0 % not estab. Not Available [facility] ([facility]) [address] [facility], [place], [address], 11/12/2020 07:11:55 11/12/19 21 11/12/2020 CBC w/ auto diff immature cells PHARMACIST'S AIDE Not Available [facility] ([facility]) [address] [facility], [place], [address], 11/12/2020 07:11:55 11/12/19 21 11/12/2020 CBC w/ auto diff neutrophils (absolute) 3.6 x10e3 /uL 1.4-7. 0 Not Available [facility] ([facility]) [address] [facility], [place], [address], 11/12/2020 07:11:55 11/12/19 21 11/12/2020 CBC w/ auto diff lymphs (absolute) 1.8 x10e3 /uL 0.7-3. 1 Not Available [facility] ([facility]) [address] [facility], [place], [address], 11/12/2020 07:11:55 11/12/19 21 11/12/2020 CBC w/ auto diff monocytes(ab solute) 0.6 x10e3 /uL 0.1-0. 9 Not Available [facility] ([facility]) [address] [facility], [place], [address], 11/12/2020 07:11:55 11/12/19 21 11/12/2020 CBC w/ auto diff eos (absolute) 0.2 x10e3 /uL 0.0-0. 4 Not Available [facility] ([facility]) [address] [facility], [place], [address], 11/12/2020 07:11:55 11/12/19 21 11/12/2020 CBC w/ auto diff baso (absolute) 0.0 x10e3 /uL 0.0-0. 3 Not Available [facility] ([facility]) [address] [place], [address], 11/12/2020 07:11:55 11/12/19 21 11/12/2020 CBC w/ auto diff immature granulocytes 1 % not estab. Not Available [facility] ([facility]) [address] [facility], [place], [address], 11/12/2020 07:11:55 11/12/19 21 11/12/2020 CBC w/ auto diff immature grans (abs) 0.0 x10e3 /uL 0.0-0. 1 Not Available [facility] ([facility]) [address] [facility], [place], [address], 11/12/2020 07:11:55 11/12/19 21 11/12/2020 CBC w/ auto diff NRBC PHARMACIST'S AIDE Not Available [facility] ([facility]) [address] [facility], [place], [address], 11/12/2020 07:11:55 11/12/19 21 11/12/2020 CBC w/ auto diff hematology comments: PHARMACIST'S AIDE Not Available [facility] ([facility]) [address] [place], [address], 11/12/2020 07:11:55 11/12/19 21 11/12/2020 iron + total iron- jeevan ng capac ity (TIBC ), serum iron bind.cap.(TI BC) 398 ug/dL 250-45 0 Not Available [facility] ([facility]) [address] [place], [address], 11/12/2020 07:11:56 11/12/19 21 11/12/2020 iron + total iron- jeevan ng capac ity (TIBC ), serum UIBC 299 ug/dL 131-42 5 Not Available [facility] ([facility]) [address] [place], [address], 11/12/2020 07:11:56 11/12/19 21 11/12/2020 iron + total iron- jeevan ng capac ity (TIBC ), serum iron 99 ug/dL 26-169 Not Available [facility] ([facility]) [address] [place], [address], 11/12/2020 07:11:56 11/12/19 21 11/12/2020 iron + total iron- jeevan ng capac ity (TIBC ), serum iron saturation 25 % 15-55 Not Available [facility] ([facility]) [address] [facility], [place], [address], 11/12/2020 07:11:56 11/12/19 21 11/12/2020 vitam in B12 + folat e, serum or blood vitamin B12 434 pg/mL 232-12 45 Not Available [facility] ([facility]) [address] [place], [address], 11/12/2020 07:11:57 11/12/19 21 11/12/2020 vitam in B12 + folat e, serum or blood folate (folic acid), serum 10.5 NG/mL >3.0 A serum folat e vladislav ntrat ion of less than 3.1 ng/mL is consi dered to repre sent clini victorina defic iency . Not Available [facility] ([facility]) [address] [facility], [place], [address], 11/12/2020 07:11:57 11/12/19 21 11/12/2020 prola ctin, serum prolactin 56.8 NG/mL 4.8-23 .3 above high normal Not Available [facility] ([facility]) [address] [place], [address], 11/12/2020 07:11:57 11/12/19 21 11/12/2020 winston tin, serum or plasm a ferritin, serum 11 NG/mL 15-77 below low normal Not Available [facility] ([facility]) [address] [place], [address], 11/12/2020 07:11:58 12/03/19 21 12/03/2020 CBC WITH DIFFE RENTI AL/PL ATELE T WBC 6.6 x10e3 /uL 3.4-10 .8 Not Available [facility] ([facility]) [address] [place], [address], 12/03/2020 11:12:39 12/03/19 21 12/03/2020 CBC WITH DIFFE RENTI AL/PL ATELE T RBC 4.84 x10e6 /uL 3.77-5 .28 Not Available [facility] ([facility]) [address] [place], [address], 12/03/2020 11:12:39 12/03/19 21 12/03/2020 CBC WITH DIFFE RENTI AL/PL ATELE T hemoglobin 10.1 g/dL 11.1-1 5.9 below low normal Not Available [facility] ([facility]) [address] [place], [address], 12/03/2020 11:12:39 12/03/19 21 12/03/2020 CBC WITH DIFFE RENTI AL/PL ATELE T hematocrit 34.7 % 34.0-4 6.6 Not Available [facility] ([facility]) [address] [place], [address], 12/03/2020 11:12:39 12/03/19 21 12/03/2020 CBC WITH DIFFE RENTI AL/PL ATELE T MCV 72 fL 79-97 below low normal Not Available [facility] ([facility]) [address] [place], [address], 12/03/2020 11:12:39 12/03/19 21 12/03/2020 CBC WITH DIFFE RENTI AL/PL ATELE T MCH 20.9 pg 26.6-3 3.0 below low normal Not Available [facility] ([facility]) [address] [place], [address], 12/03/2020 11:12:39 12/03/19 21 12/03/2020 CBC WITH DIFFE RENTI AL/PL ATELE T MCHC 29.1 g/dL 31.5-3 5.7 below low normal Not Available [facility] ([facility]) [address] [place], [address], 12/03/2020 11:12:39 12/03/19 21 12/03/2020 CBC WITH DIFFE RENTI AL/PL ATELE T RDW 16.0 % 11.7-1 5.4 above high normal Not Available [facility] ([facility]) [address] [facility], [place], [address], 12/03/2020 11:12:39 12/03/19 21 12/03/2020 CBC WITH DIFFE RENTI AL/PL ATELE T platelets 382 x10e3 /uL 150-45 0 Not Available [facility] ([facility]) [address] [facility], [place], [address], 12/03/2020 11:12:39 12/03/19 21 12/03/2020 CBC WITH DIFFE RENTI AL/PL ATELE T neutrophils 64 % not estab. Not Available [facility] ([facility]) [address] [facility], [place], [address], 12/03/2020 11:12:39 12/03/19 21 12/03/2020 CBC WITH DIFFE RENTI AL/PL ATELE T lymphs 23 % not estab. Not Available [facility] ([facility]) [address] [facility], [place], [address], 12/03/2020 11:12:39 12/03/19 21 12/03/2020 CBC WITH DIFFE RENTI AL/PL ATELE T monocytes 10 % not estab. Not Available [facility] ([facility]) [address] [facility], [place], [address], 12/03/2020 11:12:39 12/03/19 21 12/03/2020 CBC WITH DIFFE RENTI AL/PL ATELE T eos 2 % not estab. Not Available [facility] ([facility]) [address] [facility], [place], [address], 12/03/2020 11:12:39 12/03/19 21 12/03/2020 CBC WITH DIFFE RENTI AL/PL ATELE T basos 1 % not estab. Not Available [facility] ([facility]) [address] [place], [address], 12/03/2020 11:12:39 12/03/19 21 12/03/2020 CBC WITH DIFFE RENTI AL/PL ATELE T immature cells PHARMACIST'S AIDE Not Available [facility] ([facility]) [address] [place], [address], 12/03/2020 11:12:39 12/03/19 21 12/03/2020 CBC WITH DIFFE RENTI AL/PL ATELE T neutrophils (absolute) 4.2 x10e3 /uL 1.4-7. 0 Not Available [facility] ([facility]) [address] [place], [address], 12/03/2020 11:12:39 12/03/19 21 12/03/2020 CBC WITH DIFFE RENTI AL/PL ATELE T lymphs (absolute) 1.5 x10e3 /uL 0.7-3. 1 Not Available [facility] ([facility]) [address] [place], [address], 12/03/2020 11:12:39 12/03/19 21 12/03/2020 CBC WITH DIFFE RENTI AL/PL ATELE T monocytes(ab solute) 0.7 x10e3 /uL 0.1-0. 9 Not Available [facility] ([facility]) [address] [place], [address], 12/03/2020 11:12:39 12/03/19 21 12/03/2020 CBC WITH DIFFE RENTI AL/PL ATELE T eos (absolute) 0.1 x10e3 /uL 0.0-0. 4 Not Available [facility] ([facility]) [address] [place], [address], 12/03/2020 11:12:39 07/07/20 21 12/03/2020 CBC WITH DIFFE RENTI AL/PL ATELE T baso (absolute) 0.0 x10e3 /uL 0.0-0. 3 Not Available [facility] ([facility]) [address] [facility], [place], [address], 12/03/2020 11:12:39 12/03/19 21 12/03/2020 CBC WITH DIFFE RENTI AL/PL ATELE T immature granulocytes 0 % not estab. Not Available [facility] ([facility]) [address] [facility], [place], [address], 12/03/2020 11:12:39 12/03/19 21 12/03/2020 CBC WITH DIFFE RENTI AL/PL ATELE T immature grans (abs) 0.0 x10e3 /uL 0.0-0. 1 Not Available [facility] ([facility]) [address] [facility], [place], [address], 12/03/2020 11:12:39 12/03/19 21 12/03/2020 CBC WITH DIFFE RENTI AL/PL ATELE T NRBC PHARMACIST'S AIDE Not Available [facility] ([facility]) [address] [facility], [place], [address], 12/03/2020 11:12:39 12/03/19 21 12/03/2020 CBC WITH DIFFE RENTI AL/PL ATELE T hematology comments: PHARMACIST'S AIDE Not Available [facility] ([facility]) [address] [facility], [place], [address], 12/03/2020 11:12:39 12/03/19 21 12/03/2020 IRON AND TIBC iron bind.cap.(TI BC) 396 ug/dL 250-45 0 Not Available [facility] ([facility]) [address] [place], [address], 12/03/2020 11:12:40 12/03/19 21 12/03/2020 IRON AND TIBC UIBC 365 ug/dL 131-42 5 Not Available [facility] ([facility]) [address] [place], [address], 12/03/2020 11:12:40 12/03/19 21 12/03/2020 IRON AND TIBC iron 31 ug/dL 26-169 Not Available [facility] ([facility]) [address] [facility], [place], [address], 12/03/2020 11:12:40 12/03/19 21 12/03/2020 IRON AND TIBC iron saturation 8 % 15-55 alert low Not Available [facility] ([facility]) [address] [place], [address], 12/03/2020 11:12:40 12/03/19 21 12/03/2020 [place] T[place], SERUM ferritin, serum 11 NG/mL 15-77 below low normal Not Available [facility] ([facility]) [address] [place], [address], 12/03/2020 11:12:41 11/26/19 22 11/26/2021 CBC WITH DIFFE RENTI AL/PL ATELE T WBC 7.1 x10e3 /uL 3.4-10 .8 Not Available [facility] ([facility]) [address] [place], [address], 11/27/2021 07:11:48 11/26/19 22 11/26/2021 CBC WITH DIFFE RENTI AL/PL ATELE T RBC 4.87 x10e6 /uL 3.77-5 .28 Not Available [facility] ([facility]) [address] [place], [address], 11/27/2021 07:11:48 11/26/19 22 11/26/2021 CBC WITH DIFFE RENTI AL/PL ATELE T hemoglobin 10.7 g/dL 11.1-1 5.9 below low normal Not Available [facility] ([facility]) [address] [facility], [place], [address], 11/27/2021 07:11:48 11/26/19 22 11/26/2021 CBC WITH DIFFE RENTI AL/PL ATELE T hematocrit 34.7 % 34.0-4 6.6 Not Available [facility] ([facility]) [address] [facility], [place], [address], 11/27/2021 07:11:48 11/26/19 22 11/26/2021 CBC WITH DIFFE RENTI AL/PL ATELE T MCV 71 fL 79-97 below low normal Not Available [facility] ([facility]) [address] [facility], [place], [address], 11/27/2021 07:11:48 11/26/19 22 11/26/2021 CBC WITH DIFFE RENTI AL/PL ATELE T MCH 22.0 pg 26.6-3 3.0 below low normal Not Available [facility] ([facility]) [address] [facility], [place], [address], 11/27/2021 07:11:48 11/26/19 22 11/26/2021 CBC WITH DIFFE RENTI AL/PL ATELE T MCHC 30.8 g/dL 31.5-3 5.7 below low normal Not Available [facility] ([facility]) [address] [place], [address], 11/27/2021 07:11:48 11/26/19 22 11/26/2021 CBC WITH DIFFE RENTI AL/PL ATELE T RDW 14.1 % 11.7-1 5.4 Not Available [facility] ([facility]) [address] [place], [address], 11/27/2021 07:11:48 11/26/19 22 11/26/2021 CBC WITH DIFFE RENTI AL/PL ATELE T platelets 402 x10e3 /uL 150-45 0 Not Available [facility] ([facility]) [address] [facility], [place], [address], 11/27/2021 07:11:48 11/26/19 22 11/26/2021 CBC WITH DIFFE RENTI AL/PL ATELE T neutrophils 60 % not estab. Not Available [facility] ([facility]) [address] [facility], [place], [address], 11/27/2021 07:11:48 11/26/19 22 11/26/2021 CBC WITH DIFFE RENTI AL/PL ATELE T lymphs 27 % not estab. Not Available [facility] ([facility]) [address] [facility], [place], [address], 11/27/2021 07:11:48 11/26/19 22 11/26/2021 CBC WITH DIFFE RENTI AL/PL ATELE T monocytes 11 % not estab. Not Available [facility] ([facility]) [address] [facility], [place], [address], 11/27/2021 07:11:48 11/26/19 22 11/26/2021 CBC WITH DIFFE RENTI AL/PL ATELE T eos 2 % not estab. Not Available [facility] ([facility]) [address] [facility], [place], [address], 11/27/2021 07:11:48 11/26/19 22 11/26/2021 CBC WITH DIFFE RENTI AL/PL ATELE T basos 0 % not estab. Not Available [facility] ([facility]) [address] [facility], [place], [address], 11/27/2021 07:11:48 11/26/19 22 11/26/2021 CBC WITH DIFFE RENTI AL/PL ATELE T immature cells PHARMACIST'S AIDE Not Available [facility] ([facility]) [address] [facility], [place], [address], 11/27/2021 07:11:48 11/26/19 22 11/26/2021 CBC WITH DIFFE RENTI AL/PL ATELE T neutrophils (absolute) 4.2 x10e3 /uL 1.4-7. 0 Not Available [facility] ([facility]) [address] [facility], [place], [address], 11/27/2021 07:11:48 11/26/19 22 11/26/2021 CBC WITH DIFFE RENTI AL/PL ATELE T lymphs (absolute) 1.9 x10e3 /uL 0.7-3. 1 Not Available [facility] ([facility]) [address] [place], [address], 11/27/2021 07:11:48 11/26/19 22 11/26/2021 CBC WITH DIFFE RENTI AL/PL ATELE T monocytes(ab solute) 0.7 x10e3 /uL 0.1-0. 9 Not Available [facility] ([facility]) [address] [facility], [place], [address], 11/27/2021 07:11:48 11/26/19 22 11/26/2021 CBC WITH DIFFE RENTI AL/PL ATELE T eos (absolute) 0.1 x10e3 /uL 0.0-0. 4 Not Available [facility] ([facility]) [address] [place], [address], 11/27/2021 07:11:48 11/26/19 22 11/26/2021 CBC WITH DIFFE RENTI AL/PL ATELE T baso (absolute) 0.0 x10e3 /uL 0.0-0. 2 Not Available [facility] ([facility]) [address] [place], [address], 11/27/2021 07:11:48 11/26/19 22 11/26/2021 CBC WITH DIFFE RENTI AL/PL ATELE T immature granulocytes 0 % not estab. Not Available [facility] ([facility]) [address] [place], [address], 11/27/2021 07:11:48 11/26/19 22 11/26/2021 CBC WITH DIFFE RENTI AL/PL ATELE T immature grans (abs) 0.0 x10e3 /uL 0.0-0. 1 Not Available [facility] ([facility]) [address] [facility], [place], [address], 11/27/2021 07:11:48 11/26/19 22 11/26/2021 CBC WITH DIFFE RENTI AL/PL ATELE T NRBC PHARMACIST'S AIDE Not Available [facility] ([facility]) [address] [facility], [place], [address], 11/27/2021 07:11:48 11/26/19 22 11/26/2021 CBC WITH DIFFE RENTI AL/PL ATELE T hematology comments: PHARMACIST'S AIDE Not Available [facility] ([facility]) [address] [facility], [place], [address], 11/27/2021 07:11:48 11/26/19 22 11/26/2021 COMP. METAB OLIC PANEL (14) glucose 92 mg/dL 65-99 Not Available [facility] ([facility]) [address] [facility], [place], [address], 11/27/2021 07:11:49 11/26/19 22 11/26/2021 COMP. METAB OLIC PANEL (14) BUN 11 mg/dL 6-20 Not Available [facility] ([facility]) [address] [facility], [place], [address], 11/27/2021 07:11:49 11/26/19 22 11/26/2021 COMP. METAB OLIC PANEL (14) creatinine 0.87 mg/dL 0.57-1 .00 Not Available [facility] ([facility]) [address] [facility], [place], [address], 11/27/2021 07:11:49 11/26/19 22 11/26/2021 COMP. METAB OLIC PANEL (14) BUN/creatini ne ratio 13 9-23 Not Available [facility] ([facility]) [address] [place], [address], 11/27/2021 07:11:49 11/26/19 22 11/26/2021 COMP. METAB OLIC PANEL (14) sodium 140 mmol/ L 134-14 4 Not Available [facility] ([facility]) [address] [place], [address], 11/27/2021 07:11:49 11/26/19 22 11/26/2021 COMP. METAB OLIC PANEL (14) potassium 4.5 mmol/ L 3.5-5. 2 Not Available [facility] ([facility]) [address] [facility], [place], [address], 11/27/2021 07:11:49 11/26/19 22 11/26/2021 COMP. METAB OLIC PANEL (14) chloride 105 mmol/ L 96-106 Not Available [facility] ([facility]) [address] [place], [address], 11/27/2021 07:11:49 11/26/19 22 11/26/2021 COMP. METAB OLIC PANEL (14) carbon dioxide, total 21 mmol/ L 20-29 Not Available [facility] ([facility]) [address] [place], [address], 11/27/2021 07:11:49 11/26/19 22 11/26/2021 COMP. METAB OLIC PANEL (14) calcium 9.7 mg/dL 8.7-10 .2 Not Available [facility] ([facility]) [address] [place], [address], 11/27/2021 07:11:49 11/26/19 22 11/26/2021 COMP. METAB OLIC PANEL (14) protein, total 7.2 g/dL 6.0-8. 5 Not Available [facility] ([facility]) [address] [place], [address], 11/27/2021 07:11:49 11/26/19 22 11/26/2021 COMP. METAB OLIC PANEL (14) albumin 4.3 g/dL 3.9-5. 0 Not Available [facility] ([facility]) [address] [place], [address], 11/27/2021 07:11:49 11/26/19 22 11/26/2021 COMP. METAB OLIC PANEL (14) globulin, total 2.9 g/dL 1.5-4. 5 Not Available [facility] ([facility]) [address] [place], [address], 11/27/2021 07:11:49 11/26/19 22 11/26/2021 COMP. METAB OLIC PANEL (14) A/G ratio 1.5 1.2-2. 2 Not Available [facility] ([facility]) [address] [place], [address], 11/27/2021 07:11:49 11/26/19 22 11/26/2021 COMP. METAB OLIC PANEL (14) bilirubin, total <0.2 mg/dL 0.0-1. 2 Not Available [facility] ([facility]) [address] [place], [address], 11/27/2021 07:11:49 11/26/19 22 11/26/2021 COMP. METAB OLIC PANEL (14) alkaline phosphatase 89 IU/L 42-106 Not Available [facility] ([facility]) [address] [place], [address], 11/27/2021 07:11:49 11/26/19 22 11/26/2021 COMP. METAB OLIC PANEL (14) AST (SGOT) 20 IU/L 0-40 Not Available [facility] ([facility]) [address] [place], [address], 11/27/2021 07:11:49 11/26/19 22 11/26/2021 COMP. METAB OLIC PANEL (14) ALT (SGPT) 15 IU/L 0-32 Not Available [facility] ([facility]) [address] [facility], [place], [address], 11/27/2021 07:11:49 11/26/19 22 11/26/2021 LIPID PANEL WITH LDL/H DL RATIO cholesterol, total 190 mg/dL 100-16 9 above high normal Not Available [facility] ([facility]) [address] [facility], [place], [address], 11/27/2021 07:11:49 11/26/19 22 11/26/2021 LIPID PANEL WITH LDL/H DL RATIO triglyceride s 61 mg/dL 0-89 Not Available [facility] ([facility]) [address] [facility], [place], [address], 11/27/2021 07:11:49 11/26/19 22 11/26/2021 LIPID PANEL WITH LDL/H DL RATIO HDL cholesterol 49 mg/dL >39 Not Available [facility] ([facility]) [address] [facility], [place], [address], 11/27/2021 07:11:49 11/26/19 22 11/26/2021 LIPID PANEL WITH LDL/H DL RATIO VLDL cholesterol victorina 11 mg/dL 5-40 Not Available [facility] ([facility]) [address] [place], [address], 11/27/2021 07:11:49 11/26/19 22 11/26/2021 LIPID PANEL WITH LDL/H DL RATIO LDL chol calc ([facility]) 130 mg/dL 0-109 above high normal Not Available [facility] ([facility]) [address] [place], [address], 11/27/2021 07:11:49 11/26/19 22 11/26/2021 LIPID PANEL WITH LDL/H DL RATIO 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 2 LDL/H DL Ratio Men Women 1/2 Avg.R isk 1.0 1.5 Avg.R isk 3.6 3.2 2X Avg.R isk 6.2 5.0 3X Avg.R isk 8.0 6.1 Not Available [facility] ([facility]) [address] [place], [address], 11/27/2021 07:11:49 11/26/19 22 11/26/2021 IRON AND TIBC iron bind.cap.(TI BC) 410 ug/dL 250-45 0 Not Available [facility] ([facility]) [address] [place], [address], 11/27/2021 07:11:56 11/26/19 22 11/26/2021 IRON AND TIBC UIBC 375 ug/dL 131-42 5 Not Available [facility] ([facility]) [address] [place], [address], 11/27/2021 07:11:56 11/26/19 22 11/26/2021 IRON AND TIBC iron 35 ug/dL 27-159 Not Available [facility] ([facility]) [address] [place], [address], 11/27/2021 07:11:56 11/26/19 22 11/26/2021 IRON AND TIBC iron saturation 9 % 15-55 alert low Not Available [facility] ([facility]) [address] [place], [address], 11/27/2021 07:11:56 11/26/19 22 11/26/2021 HCV ANTIB RICHIE RFX TO QUANT PCR HCV Ab <0.1 s/co_ ratio 0.0-0. 9 Not Available [facility] ([facility]) [address] [facility], [place], [address], 11/27/2021 07:11:56 11/26/19 22 11/26/2021 HCV ANTIB RICHIE RFX TO QUANT PCR interpretati on: Commen t Negat trudi Not infec jeremiah with HCV, unles s recen t infec tion is suspe cted or other evide nce exist s to indic ate HCV infec tion. Not Available [facility] ([facility]) [address] [place], [address], 11/27/2021 07:11:56 11/26/19 22 11/26/2021 CHLAM YDIA/ GC AMPLI FICAT ION chlamydia trachomatis, JORDAN Negati ve negati ve Not Available [facility] ([facility]) [address] [facility], [place], [address], 11/27/2021 07:11:57 11/26/19 22 11/26/2021 CHLAM YDIA/ GC AMPLI FICAT ION neisseria gonorrhoeae, JORDAN Negati ve negati ve Not Available [facility] ([facility]) [address] [place], [address], 11/27/2021 07:11:57 11/26/19 22 11/26/2021 HEMOG LOBIN A1C hemoglobin A1C 6.1 % 4.8-5. 6 above high normal Predi abete s: 5.7 - 6.4 Diabe miguel: >6.4 Glyce travis contr ol for adult s with diabe miguel: <7.0 Not Available [facility] ([facility]) [address] [place], [address], 11/27/2021 07:11:57 11/26/19 22 11/26/2021 RPR, RFX QN RPR/C ONFIR M TP RPR Non Reacti ve non reacti ve Not Available [facility] ([facility]) [address] [facility], [place], [address], 11/27/2021 07:11:58 11/26/19 22 11/26/2021 VITAM IN D, 25-HY DROXY vitamin D, 25-hydroxy 15.5 NG/mL 30.0-1 00.0 below low normal Vitam in D defic iency has been defin ed by the Insti tute of Medic ine and an Endoc rine Socie ty pract ice guide line as a level of serum 25-OH vitam in D less than 20 ng/mL (1,2) . The Endoc rine Socie ty went on to furth er defin e vitam in D insuf ficie ncy as a level betwe en 21 and 29 ng/mL (2). 1. IOM (Inst itute of Medic ine). 2009. Isabel ry refer ence inttisha es for calci um and D. Iker rice [place]: The Natio nal [facility] Press . 2. Jennifer montana MF, Cass styles [place], Popeye off-F errar i SOLITARIO, et al. Evalu ation , treat ment, and preve ntion of vitam in D defic iency : an Endoc rine Socie ty clini victorina pract ice guide line. JCEM. 2010; 96(7) :1911 -30. Not Available [facility] ([facility]) [address] [facility], [place], [address], 11/27/2021 07:11:58 11/26/19 22 11/26/2021 HIV AB/P2 4 AG WITH REFLE X HIV Ab/P24 Ag screen Non Reacti ve non reacti ve HIV Negat trudi HIV-1 /HIV- 2 antib odies and HIV-1 p24 antig en were NOT detec jeremiah. There is no labor atory evide nce of HIV infec tion. Not Available [facility] ([facility]) [address] [facility], [place], [address], 11/27/2021 07:11:59 11/26/19 22 11/26/2021 WINSTON TIN ferritin 22 NG/mL 15-77 Not Available [facility] ([facility]) [address] [place], [address], 11/27/2021 07:11:59 11/26/19 22 11/25/2021 pregn mee test, urine HCG negati ve Not Available In-Office Order Internal Use Only DO Not Attach Compendium DO Not Attach Compendium, Do Not Delete/merge, [id number] 11/25/2021 15:50:46 05/08/20 23 05/09/2023 LIPID PANEL cholesterol, total 183 mg/dL 100-16 9 above high normal Not Available [facility] ([facility]) [address] [facility], [place], [address], 05/09/2023 11:13:01 05/08/20 23 05/09/2023 LIPID PANEL triglyceride s 46 mg/dL 0-89 Not Available [facility] ([facility]) [address] [place], [address], 05/09/2023 11:13:01 05/08/20 23 05/09/2023 LIPID PANEL HDL cholesterol 47 mg/dL >39 Not Available [facility] ([facility]) [address] [place], [address], 05/09/2023 11:13:01 05/08/20 23 05/09/2023 LIPID PANEL VLDL cholesterol victorina 9 mg/dL 5-40 Not Available [facility] ([facility]) [address] [place], [address], 05/09/2023 11:13:01 05/08/20 23 05/09/2023 LIPID PANEL LDL chol calc ([facility]) 127 mg/dL 0-109 above high normal Not Available [facility] ([facility]) [address] [place], [address], 05/09/2023 11:13:01 05/08/20 23 05/09/2023 COMP. METAB OLIC PANEL (14) glucose 85 mg/dL 70-99 Not Available [facility] ([facility]) [address] [place], [address], 05/09/2023 11:13:02 05/08/20 23 05/09/2023 COMP. METAB OLIC PANEL (14) BUN 9 mg/dL 6-20 Not Available [facility] ([facility]) [address] [place], [address], 05/09/2023 11:13:02 05/08/20 23 05/09/2023 COMP. METAB OLIC PANEL (14) creatinine 0.76 mg/dL 0.57-1 .00 Not Available [facility] ([facility]) [address] [place], [address], 05/09/2023 11:13:02 05/08/20 23 05/09/2023 COMP. METAB OLIC PANEL (14) eGFR 116 mL/mi n/1.7 3 >59 Not Available [facility] ([facility]) [address] [place], [address], 05/09/2023 11:13:02 05/08/20 23 05/09/2023 COMP. METAB OLIC PANEL (14) BUN/creatini ne ratio 12 -23 Not Available [facility] ([facility]) [address] [place], [address], 05/09/2023 11:13:02 05/08/20 23 05/09/2023 COMP. METAB OLIC PANEL (14) sodium 138 mmol/ L 134-14 4 Not Available [facility] ([facility]) [address] [place], [address], 05/09/2023 11:13:02 05/08/20 23 05/09/2023 COMP. METAB OLIC PANEL (14) potassium 4.9 mmol/ L 3.5-5. 2 Not Available [facility] ([facility]) [address] [place], [address], 05/09/2023 11:13:02 05/08/20 23 05/09/2023 COMP. METAB OLIC PANEL (14) chloride 104 mmol/ L 96-106 Not Available [facility] ([facility]) [address] [place], [address], 05/09/2023 11:13:02 05/08/20 23 05/09/2023 COMP. METAB OLIC PANEL (14) carbon dioxide, total 21 mmol/ L 20-29 Not Available [facility] ([facility] [address] [place], [address], 05/09/2023 11:13:02 05/08/20 23 05/09/2023 COMP. METAB OLIC PANEL (14) calcium 9.3 mg/dL 8.7-10 .2 Not Available [facility] ([facility]) [address] [facility] [place], [address], 05/09/2023 11:13:02 05/08/20 23 05/09/2023 COMP. METAB OLIC PANEL (14) protein, total 7.3 g/dL 6.0-8. 5 Not Available [facility] ([facility]) [address] [facility] [place], [address], 05/09/2023 11:13:02 05/08/20 23 05/09/2023 COMP. METAB OLIC PANEL (14) albumin 4.3 g/dL 4.0-5. 0 Not Available [facility] ([facility]) [address] [place], [address], 05/09/2023 11:13:02 05/08/20 23 05/09/2023 COMP. METAB OLIC PANEL (14) globulin, total 3.0 g/dL 1.5-4. 5 Not Available [facility] ([facility]) [address] [facility], [place], [address], 05/09/2023 11:13:02 05/08/20 23 05/09/2023 COMP. METAB OLIC PANEL (14) A/G ratio 1.4 1.2-2. 2 Not Available [facility] ([facility]) [address] [facility], [place], [address], 05/09/2023 11:13:02 05/08/20 23 05/09/2023 COMP. METAB OLIC PANEL (14) bilirubin, total <0.2 mg/dL 0.0-1. 2 Not Available [facility] ([facility]) [address] [facility] [place], [address], 05/09/2023 11:13:02 05/08/20 23 05/09/2023 COMP. METAB OLIC PANEL (14) alkaline phosphatase 109 IU/L 42-106 above high normal Not Available [facility] ([facility]) [address] [facility], [place], [address], 05/09/2023 11:13:02 05/08/20 23 05/09/2023 COMP. METAB OLIC PANEL (14) AST (SGOT) 11 IU/L 0-40 Not Available [facility] ([facility]) [address] [facility], [place], [address], 05/09/2023 11:13:02 05/08/20 23 05/09/2023 COMP. METAB OLIC PANEL (14) ALT (SGPT) 8 IU/L 0-32 Not Available [facility] ([facility]) [address] [place], [address], 05/09/2023 11:13:02 05/08/20 23 05/09/2023 CBC WITH DIFFE RENTI AL/PL ATELE T WBC 6.6 x10e3 /uL 3.4-10 .8 Not Available [facility] ([facility]) [address] [place], [address], 05/09/2023 11:13:03 05/08/20 23 05/09/2023 CBC WITH DIFFE RENTI AL/PL ATELE T RBC 5.25 x10e6 /uL 3.77-5 .28 Not Available [facility] ([facility]) [address] [facility], [place], [address], 05/09/2023 11:13:03 05/08/20 23 05/09/2023 CBC WITH DIFFE RENTI AL/PL ATELE T hemoglobin 11.1 g/dL 11.1-1 5.9 Not Available [facility] ([facility]) [address] [place], [address], 05/09/2023 11:13:03 05/08/20 23 05/09/2023 CBC WITH DIFFE RENTI AL/PL ATELE T hematocrit 37.2 % 34.0-4 6.6 Not Available [facility] ([facility]) [address] [place], [address], 05/09/2023 11:13:03 05/08/20 23 05/09/2023 CBC WITH DIFFE RENTI AL/PL ATELE T MCV 71 fL 79-97 below low normal Not Available [facility] ([facility]) [address] [place], [address], 05/09/2023 11:13:03 05/08/20 23 05/09/2023 CBC WITH DIFFE RENTI AL/PL ATELE T MCH 21.1 pg 26.6-3 3.0 below low normal Not Available [facility] ([facility]) [address] [place], [address], 05/09/2023 11:13:03 05/08/20 23 05/09/2023 CBC WITH DIFFE RENTI AL/PL ATELE T MCHC 29.8 g/dL 31.5-3 5.7 below low normal Not Available [facility] ([facility]) [address] [place], [address], 05/09/2023 11:13:03 05/08/20 23 05/09/2023 CBC WITH DIFFE RENTI AL/PL ATELE T RDW 15.8 % 11.7-1 5.4 above high normal Not Available [facility] ([facility]) [address] [facility], [place], [address], 05/09/2023 11:13:03 05/08/20 23 05/09/2023 CBC WITH DIFFE RENTI AL/PL ATELE T platelets 398 x10e3 /uL 150-45 0 Not Available [facility] ([facility]) [address] [facility], [place], [address], 05/09/2023 11:13:03 05/08/20 23 05/09/2023 CBC WITH DIFFE RENTI AL/PL ATELE T neutrophils 57 % notest ab. Not Available [facility] ([facility]) [address] [facility], [place], [address], 05/09/2023 11:13:03 05/08/20 23 05/09/2023 CBC WITH DIFFE RENTI AL/PL ATELE T lymphs 29 % notest ab. Not Available [facility] ([facility]) [address] [facility], [place], [address], 05/09/2023 11:13:03 05/08/20 23 05/09/2023 CBC WITH DIFFE RENTI AL/PL ATELE T monocytes 9 % notest ab. Not Available [facility] ([facility]) [address] [facility], [place], [address], 05/09/2023 11:13:03 05/08/20 23 05/09/2023 CBC WITH DIFFE RENTI AL/PL ATELE T eos 4 % notest ab. Not Available [facility] ([facility]) [address] [facility], [place], [address], 05/09/2023 11:13:03 05/08/20 23 05/09/2023 CBC WITH DIFFE RENTI AL/PL ATELE T basos 1 % notest ab. Not Available [facility] ([facility]) [address] [place], [address], 05/09/2023 11:13:03 05/08/20 23 05/09/2023 CBC WITH DIFFE RENTI AL/PL ATELE T neutrophils (absolute) 3.8 x10e3 /uL 1.4-7. 0 Not Available [facility] ([facility]) [address] [place], [address], 05/09/2023 11:13:03 05/08/20 23 05/09/2023 CBC WITH DIFFE RENTI AL/PL ATELE T lymphs (absolute) 1.9 x10e3 /uL 0.7-3. 1 Not Available [facility] ([facility]) [address] [place], [address], 05/09/2023 11:13:03 05/08/20 23 05/09/2023 CBC WITH DIFFE RENTI AL/PL ATELE T monocytes(ab solute) 0.6 x10e3 /uL 0.1-0. 9 Not Available [facility] ([facility]) [address] [place], [address], 05/09/2023 11:13:03 05/08/20 23 05/09/2023 CBC WITH DIFFE RENTI AL/PL ATELE T eos (absolute) 0.3 x10e3 /uL 0.0-0. 4 Not Available [facility] ([facility]) [address] [place], [address], 05/09/2023 11:13:03 05/08/20 23 05/09/2023 CBC WITH DIFFE RENTI AL/PL ATELE T baso (absolute) 0.0 x10e3 /uL 0.0-0. 2 Not Available [facility] ([facility]) [address] [place], [address], 05/09/2023 11:13:03 05/08/20 23 05/09/2023 CBC WITH DIFFE RENTI AL/PL ATELE T immature granulocytes 0 % notest ab. Not Available [facility] ([facility]) [address] [facility], [place], [address], 05/09/2023 11:13:03 05/08/20 23 05/09/2023 CBC WITH DIFFE RENTI AL/PL ATELE T immature grans (abs) 0.0 x10e3 /uL 0.0-0. 1 Not Available [facility] ([facility]) [address] [place], [address], 05/09/2023 11:13:03 05/08/20 23 05/10/2023 CT, NG, TRICH VAG BY JORDAN chlamydia by JORDAN Negati ve negati ve Not Available [facility] ([facility]) [address] [place], [address], 05/10/2023 11:12:48 05/08/2005/10/2023 CT, NG, TRICH VAG BY JORDAN gonococcus by JORDAN Negati ve negati ve Not Available [facility] ([facility]) [address] [place], [address], 05/10/2023 11:12:48 05/08/20 23 05/10/2023 CT, NG, TRICH VAG BY JORDAN trich vag by JORDAN Negati ve negati ve Not Available [facility] ([facility]) [address] [place], [address], 05/10/2023 11:12:48 05/08/20 23 05/09/2023 TSH+F REE T4 TSH 1.400 uIU/m L 0.450- 4.500 Not Available [facility] ([facility]) [address] [place], [address], 05/10/2023 11:12:49 12/11/20 23 05/09/2023 TSH+F REE T4 T4,free(dire ct) 1.10 NG/dL 0.93-1 .60 Not Available [facility] ([facility]) [address] [facility], [place], [address], 05/10/2023 11:12:49 05/08/20 23 05/09/2023 VITAM IN B12 AND FOLAT E vitamin B12 327 pg/mL 232-12 45 Not Available [facility] ([facility]) [address] [facility], [place], [address], 05/10/2023 11:12:50 05/08/20 23 05/09/2023 VITAM IN B12 AND FOLAT E folate (folic acid), serum 4.4 NG/mL >3.0 A serum folat e vladislav ntrat ion of less than 3.1 ng/mL is consi dered to repre sent clini victorina defic iency . Not Available [facility] ([facility]) [address] [facility], [place], [address], 05/10/2023 11:12:50 05/08/20 23 05/09/2023 IRON AND TIBC iron bind.cap.(TI BC) 410 ug/dL 250-45 0 Not Available [facility] ([facility]) [address] [facility], [place], [address], 05/10/2023 11:12:51 05/08/20 23 05/09/2023 IRON AND TIBC UIBC 353 ug/dL 131-42 5 Not Available [facility] ([facility]) [address] [facility], [place], [address], 05/10/2023 11:12:51 05/08/20 23 05/09/2023 IRON AND TIBC iron 57 ug/dL 27-159 Not Available [facility] ([facility]) [address] [facility], [place], [address], 05/10/2023 11:12:51 05/08/20 23 05/09/2023 IRON AND TIBC iron saturation 14 % 15-55 below low normal Not Available [facility] ([facility]) [address] [place], [address], 05/10/2023 11:12:51 05/08/20 23 05/09/2023 HEMOG LOBIN A1C hemoglobin A1C 6.2 % 4.8-5. 6 above high normal Predi abete s: 5.7 - 6.4 Diabe miguel: >6.4 Glyce travis contr ol for adult s with diabe miguel: <7.0 Not Available [facility] ([facility]) [address] [place], [address], 05/10/2023 11:12:51 05/08/20 23 05/09/2023 PROLA CTIN prolactin 19.7 NG/mL 4.8-23 .3 Eff ectiv e Decem rhonda 2022 Prola ctin refer ence* * inter óscar will be campbell ing to: Age Male (ng/m L) Femal e (ng/m L) 0 - 30 days 4.3 - 32.8 4.5 - 24.4 1 - 6 mos 5.4 - 51.4 5.4 - 51.4 7m - 1 yrs 5.3 - 28.9 4.8 - 33.4 2 - 12 yrs 1.8 - 44.2 4.8 - 33.4 13 - 30 yrs 3.6 - 31.5 4.8 - 33.4 31 - 50 yrs 3.9 - 22.7 4.8 - 33.4 51 - 80 yrs 3.6 - 25.2 3.6 - 25.2 >80 yrs 3.6 - 32.0 3.6 - 32.0 Not Available [facility] ([facility]) [address] [place], [address], 05/10/2023 11:12:52 05/08/20 23 05/09/2023 WINSTON TIN ferritin 19 NG/mL 15-77 Not Available [facility] ([facility]) [address] [place], [address], 05/10/2023 11:12:53 05/08/20 23 05/09/2023 VITAM IN D, 25-HY DROXY vitamin D, 25-hydroxy 9.9 NG/mL 30.0-1 00.0 below low normal Vitam in D defic iency has been defin ed by the Insti tute of Medic ine and an Endoc rine Socie ty pract ice guide line as a level of serum 25-OH vitam in D less than 20 ng/mL (1,2) . The Endoc rine Socie ty went on to furth er defin e vitam in D insuf ficie ncy as a level betwe en 21 and 29 ng/mL (2). 1. IOM (Inst itute of Medic ine). 2010. Dieta ry refer ence intak es for calci um and D. Iker rice [place]: The [facility] . 2. Jennifer montana MF, Cass styles [place], Popeye off-F errar i SOLITARIO, et al. Evalu ation , treat ment, and preve ntion of vitam in D defic iency : an Endoc rine Socie ty clini victorina pract ice guide line. JCEM. 2010; 96(7) :1911 -30. Not Available [facility] ([facility]) [address] [facility], [place], [address], 05/10/2023 11:12:54 05/08/20 23 05/08/2023 pregn mee test, urine HCG negati ve Not Available In-Office Order Internal Use Only DO Not Attach Compendium DO Not Attach Compendium, Do Not Delete/merge, [id number] 05/08/2023 11:46:42 10/30/1910/30/2024 TSH RFX ON ABNOR MAL TO FREE T4 TSH 0.957 uIU/m L 0.450- 4.500 Not Available [facility] ([facility]) [address] [facility], [place], [address], 10/30/2024 13:11:55 10/30/19 25 10/30/2024 HEMOG LOBIN A1C hemoglobin A1C 5.6 % 4.8-5. 6 Predi abete s: 5.7 - 6.4 Diabe miguel: >6.4 Glyce travis contr ol for adult s with diabe miguel: <7.0 Not Available [facility] ([facility]) [address] [facility], [place], [address], 10/30/2024 13:11:56 10/30/19 25 10/30/2024 HCG,B ETA SUBUN IT,QU AL HCG,beta subunit,qual NEGATI VE mIU/m L negati ve<6 Not Available [facility] ([facility]) [address] [facility], [place], [address], 10/30/2024 13:11:57 10/30/19 25 10/30/2024 WINSTON TIN ferritin 13 NG/mL 15-150 below low normal Not Available [facility] ([facility]) [address] [facility], [place], [address], 10/30/2024 13:11:58 10/30/19 25 10/29/2024 pregn mee test, urine HCG negati ve Not Available In-Office Order Internal Use Only DO Not Attach Compendium DO Not Attach Compendium, Do Not Delete/merge, [id number] 10/29/2024 15:55:58 01/13/20 25 01/12/2025 DRUG SCREE N, URINE amphetamines [presence] in urine Negati ve text: negati ve Not Available Not Available 01/17/2025 11:53:28 01/13/20 25 01/12/2025 DRUG SCREE N, URINE barbiturates [presence] in urine Negati ve text: negati ve Not Available Not Available 01/17/2025 11:53:28 01/13/20 25 01/12/2025 DRUG SCREE N, URINE benzodiazepi mayuri [presence] in urine Presum ptive Positi ve text: negati ve abnormal Not Available Not Available 01/17/2025 11:53:28 01/13/20 25 01/12/2025 DRUG SCREE N, URINE cocaine [presence] in urine Negati ve text: negati ve Not Available Not Available 01/17/2025 11:53:28 01/13/20 25 01/12/2025 DRUG SCREE N, URINE opiates [presence] in urine by screen method Negati ve text: negati ve Not Available Not Available 01/17/2025 11:53:28 01/13/20 25 01/12/2025 DRUG SCREE N, URINE cannabinoids [presence] in urine by screen method Negati ve text: negati ve Not Available Not Available 01/17/2025 11:53:28 01/13/20 25 01/12/2025 DRUG SCREE N, URINE phencyclidin e [presence] in urine by screen method Negati ve text: negati ve Not Available Not Available 01/17/2025 11:53:28 01/13/20 25 01/12/2025 DRUG SCREE N, URINE oxycodone [presence] in urine by screen method Negati ve text: negati ve Not Available Not Available 01/17/2025 11:53:28 01/13/20 25 01/12/2025 DRUG SCREE N, URINE methadone [presence] in urine by screen method Negati ve text: negati ve Not Available Not Available 01/17/2025 11:53:28 01/13/20 25 01/12/2025 DRUG SCREE N, URINE fentanyl [presence] in urine Negati ve text: negati ve Not Available Not Available 01/17/2025 11:53:28 01/13/20 25 01/12/2025 DRUG SCREE N, URINE creatinine [mass/volume ] in urine 159 mg/dL low: 29mg/d Lhigh: 226mg/ dL Refer ence Range varie s with fluid intak e and diet. Not Available Not Available 01/17/2025 11:53:28 01/13/20 25 01/12/2025 DRUG SCREE N, URINE this test IS A qualitative screen. the presumptive positive results should not BE used for legal purposes. if confirmation of results IS desired, the lab must BE contacted without delay. drug ref. range screening threshold amphetamines negative 500 NG/mL barbiturates negative 200 NG/mL benzodiazepi mayuri negative 100 NG/mL cannabinoids negative 50 NG/mL cocaine negative 150 NG/mL methadone negative 300 NG/mL opiates negative 300 NG/mL oxycodone negative 100 NG/mL phencyclidin e negative 25 NG/mL fentanyl negative 5 NG/mL This test is a qualit ative screen . The presum ptive positi ve result s should not be used for legal purpos es. If confir mation of result s is desire d, the lab must be contac jeremiah withou t delay. Drug Ref. Range Screen ing Thresh old Amphet amines Negati ve 500 ng/mL Barbit urates Negati ve 200 ng/mL Benzod iazepi mayuri Negati ve 100 ng/mL Cannab inoids Negati ve 50 ng/mL Cocain e Negati ve 150 ng/mL Methad one Negati ve 300 ng/mL Opiate s Negati ve 300 ng/mL Oxycod one Negati ve 100 ng/mL Phency clidin e Negati ve 25 ng/mL Fentan yl Negati ve 5 ng/mL Not Available Not Available 11:53:28 01/13/2001/12/2025 DRUG SCREE N, URINE interpretati on and review of laboratory results Abnorm al Not Available Not Available 11:53:28 01/13/20 25 01/12/2025 Urina lysis compl ete panel - Urine color UA Yellow text: pale to dark yellow Not Available Not Available 01/17/2025 11:53:28 01/13/20 25 01/12/2025 Urina lysis compl ete panel - Urine clarity UA Slight ly Cloudy text: clear abnormal Not Available Not Available 01/17/2025 11:53:28 01/13/2001/12/2025 Urina lysis compl ete panel - Urine specific gravity UA 1.024 low: 1.003h igh: 1.035 Not Available Not Available 01/17/2025 11:53:28 01/13/20 25 01/12/2025 Urina lysis compl ete panel - Urine pH UA 7 low: 5high: 8 Not Available Not Available 01/17/2025 11:53:28 01/13/20 25 01/12/2025 Urina lysis compl ete panel - Urine leukocyte esterase UA Negati ve text: negati ve Not Available Not Available 01/17/2025 11:53:28 01/13/20 25 01/12/2025 Urina lysis compl ete panel - Urine nitrite UA Negati ve text: negati ve Not Available Not Available 01/17/2025 11:53:28 01/13/20 25 01/12/2025 Urina lysis compl ete panel - Urine protein [presence] in urine 1+ text: negati ve abnormal Not Available Not Available 01/17/2025 11:53:28 01/13/20 25 01/12/2025 Urina lysis compl ete panel - Urine glucose UA Negati ve text: negati ve Not Available Not Available 01/17/2025 11:53:28 01/13/20 25 01/12/2025 Urina lysis compl ete panel - Urine ketones UA Negati ve text: negati ve Not Available Not Available 01/17/2025 11:53:28 01/13/20 25 01/12/2025 Urina lysis compl ete panel - Urine urobilinogen UA Normal high: 2mg/dL Not Available Not Available 01/17/2025 11:53:28 01/13/20 25 01/12/2025 Urina lysis compl ete panel - Urine bilirubin UA Negati ve text: negati ve Not Available Not Available 01/17/2025 11:53:28 01/13/20 25 01/12/2025 Urina lysis compl ete panel - Urine blood UA Negati ve text: negati ve Not Available Not Available 01/17/2025 11:53:28 01/13/20 25 01/12/2025 Urina lysis compl ete panel - Urine leukocytes [#/area] in urine sediment by microscopy high power field 0-2 text: 0 - 2 /hpf Not Available Not Available 01/17/2025 11:53:28 01/13/20 25 01/12/2025 Urina lysis compl ete panel - Urine erythrocytes [#/area] in urine sediment by microscopy high power field 3-5 text: 0 - 2 /hpf abnormal Not Available Not Available 01/17/2025 11:53:28 01/13/20 25 01/12/2025 Urina lysis compl ete panel - Urine bacteria [#/area] in urine sediment by microscopy high power field 2+ text: negati ve /hpf abnormal Not Available Not Available 01/17/2025 11:53:28 01/13/20 25 01/12/2025 Urina lysis compl ete panel - Urine epithelial cells.squamo us [#/area] in urine sediment by microscopy high power field 0-5 text: 0 - 5 /hpf Not Available Not Available 01/17/2025 11:53:28 01/13/20 25 01/12/2025 Urina lysis compl ete panel - Urine hyaline casts [#/area] in urine sediment by microscopy low power field 0-2 text: none seen, 0-2 /lpf Not Available Not Available 01/17/2025 11:53:28 01/13/20 25 01/12/2025 Urina lysis compl ete panel - Urine interpretati on and review of laboratory results Abnorm al Not Available Not Available 11:53:28 01/13/20 25 01/12/2025 CBC W Auto Diffe renti al panel - Blood leukocytes [#/volume] in blood 8.2 K/uL low: 4K/uLh igh: 9.8K/u L Not Available Not Available 01/17/2025 12:03:28 01/13/20 25 01/12/2025 CBC W Auto Diffe renti al panel - Blood erythrocytes [#/volume] in blood by automated count 4.97 text: 3.90 - 4.90 M/uL high Not Available Not Available 01/17/2025 12:03:28 01/13/20 25 01/12/2025 CBC W Auto Diffe renti al panel - Blood hemoglobin [mass/volume ] in blood 10.6 g/dL low: 11.8g/ dLhigh : 14.8g/ dL low Not Available Not Available 01/17/2025 12:03:28 01/13/20 25 01/12/2025 CBC W Auto Diffe renti al panel - Blood hematocrit [volume fraction] of blood by automated count 36.1 % low: 35.5%h igh: 44% Not Available Not Available 01/17/2025 12:03:28 01/13/20 25 01/12/2025 CBC W Auto Diffe renti al panel - Blood MCV [entitic mean volume] in red blood cells by automated count 72.6 fL low: 82fLhi gh: 99fL low Not Available Not Available 01/17/2025 12:03:28 01/13/20 25 01/12/2025 CBC W Auto Diffe renti al panel - Blood MCH [entitic mass] by automated count 21.3 pg low: 27.2pg high: 32.6pg low Not Available Not Available 01/17/2025 12:03:28 01/13/20 25 01/12/2025 CBC W Auto Diffe renti al panel - Blood MCHC [entitic mass/volume] in red blood cells by automated count 29.4 g/dL low: 31.5g/ dLhigh : 35.5g/ dL low Not Available Not Available 01/17/2025 12:03:28 01/13/20 25 01/12/2025 CBC W Auto Diffe renti al panel - Blood RDW 17.9 % low: 11.5%h igh: 14.5% high Not Available Not Available 01/17/2025 12:03:28 01/13/20 25 01/12/2025 CBC W Auto Diffe renti al panel - Blood RDW-stdev 46.6 fL low: 37.1fL high: 48.7fL Not Available Not Available 01/17/2025 12:03:28 01/13/20 25 01/12/2025 CBC W Auto Diffe renti al panel - Blood platelets [#/volume] in blood by automated count 348 K/uL low: 140K/u Lhigh: 350K/u L Not Available Not Available 01/17/2025 12:03:28 01/13/20 25 01/12/2025 CBC W Auto Diffe renti al panel - Blood platelet [entitic mean volume] in blood by automated count 10.4 fL low: 9.3fLh igh: 12.4fL Not Available Not Available 01/17/2025 12:03:28 01/13/20 25 01/12/2025 CBC W Auto Diffe renti al panel - Blood neutrophils 54 % Not Available Not Av ailable 01/17/2025 12:03:28 01/13/20 25 01/12/2025 CBC W Auto Diffe renti al panel - Blood lymphocytes/ leukocytes in blood by automated count 32 % Not Available Not Available 12/28 12:03:28 01/13/20 25 01/12/2025 CBC W Auto Diffe renti al panel - Blood monocytes 10 % Not Available Not Avai lable 01/17/2025 12:03:28 01/13/20 25 01/12/2025 CBC W Auto Diffe renti al panel - Blood eosinophils 4 % Not Available Not Av ailable 01/17/2025 12:03:28 01/13/20 25 01/12/2025 CBC W Auto Diffe renti al panel - Blood basophils 1 % Not Available Not Avai lable 01/17/2025 12:03:28 01/13/20 25 01/12/2025 CBC W Auto Diffe renti al panel - Blood immature granulocytes 0 % Not Available Not Available 01/17/2025 12:03:28 01/13/20 25 01/12/2025 CBC W Auto Diffe renti al panel - Blood neutrophils [#/volume] in blood by automated count 4.42 K/uL low: 1.9K/u Lhigh: 7K/uL Not Available Not Available 01/17/2025 12:03:28 01/13/20 25 01/12/2025 CBC W Auto Diffe renti al panel - Blood lymphocytes [#/volume] in blood by automated count 2.58 K/uL low: 0.7K/u Lhigh: 4.5K/u L Not Available Not Available 01/17/2025 12:03:28 01/13/20 25 01/12/2025 CBC W Auto Diffe renti al panel - Blood monocytes [#/volume] in blood by automated count 0.83 K/uL low: 0.1K/u Lhigh: 1.3K/u L Not Available Not Available 01/17/2025 12:03:28 01/13/20 25 01/12/2025 CBC W Auto Diffe renti al panel - Blood eosinophils [#/volume] in blood by automated count 0.3 K/uL low: 0K/uLh igh: 0.7K/u L Not Available Not Available 01/17/2025 12:03:28 01/13/20 25 01/12/2025 CBC W Auto Diffe renti al panel - Blood basophils [#/volume] in blood by automated count 0.04 K/uL low: 0K/uLh igh: 0.2K/u L Not Available Not Available 01/17/2025 12:03:28 01/13/20 25 01/12/2025 CBC W Auto Diffe renti al panel - Blood immature granulocytes absolute 0.02 K/uL low: 0K/uLh igh: 0.03K/ uL Not Available Not Available 01/17/2025 12:03:28 01/13/20 25 01/12/2025 CBC W Auto Diffe renti al panel - Blood interpretati on and review of laboratory results Abnorm al Not Available Not Available 12:03:28 01/13/20 25 01/12/2025 Compr ehens trudi metab olic 1999 panel - Serum or Plasm a sodium [moles/volum e] in serum or plasma 140 mmol/ L low: 136mmo l/Lhig h: 145mmo l/L Not Available Not Available 01/17/2025 11:53:28 01/13/20 25 01/12/2025 Compr ehens trudi metab olic 1999 panel - Serum or Plasm a potassium [moles/volum e] in serum or plasma 4.8 mmol/ L low: 3.5mmo l/Lhig h: 5mmol/ L Hemol ysis prese nt. Resul t may be false ly eleva jeremiah. Not Available Not Available 01/17/2025 11:53:28 01/13/20 25 01/12/2025 Compr ehens trudi metab olic 2000 panel - Serum or Plasm a chloride [moles/volum e] in serum or plasma 107 mmol/ L low: 98mmol /Lhigh : 107mmo l/L Not Available Not Available 01/17/2025 11:53:28 01/13/20 25 01/12/2025 Compr ehens trudi metab olic 1999 panel - Serum or Plasm a carbon dioxide, total [moles/volum e] in serum or plasma 22 mmol/ L low: 22mmol /Lhigh : 29mmol /L Not Available Not Available 01/17/2025 11:53:28 01/13/20 25 01/12/2025 Compr ehens trudi metab olic 1999 panel - Serum or Plasm a calcium [mass/volume ] in serum or plasma 9.4 mg/dL low: 8.6mg/ dLhigh : 10.2mg /dL Not Available Not Available 01/17/2025 11:53:28 01/13/20 25 01/12/2025 [facility] [employer] [facility] 1999 panel - Serum or Plasm a urea nitrogen [mass/volume ] in serum or plasma 12 mg/dL low: 6mg/dL high: 20mg/d L Not Available Not Available 01/17/2025 11:53:28 01/13/20 25 01/12/2025 [facility] [employer] [facility] 1999 panel - Serum or Plasm a creatinine [mass/volume ] in serum or plasma 0.85 mg/dL low: 0.51mg /dLhig h: 0.95mg /dL Not Available Not Available 01/17/2025 11:53:28 01/13/20 25 01/12/2025 [facility] [employer] 1999 panel - Serum or Plasm a glucose [mass/volume ] in serum or plasma 112 mg/dL low: 74mg/d Lhigh: 99mg/d L high Not Available Not Available 01/17/2025 11:53:28 01/13/20 25 01/12/2025 [facility] [employer] [facility] 1999 panel - Serum or Plasm a protein [mass/volume ] in serum or plasma 7.6 g/dL low: 6.7g/d Lhigh: 8.6g/d L Not Available Not Available 01/17/2025 11:53:28 01/13/20 25 01/12/2025 [facility] [employer] 1999 panel - Serum or Plasm a albumin [mass/volume ] in serum or plasma 4.2 g/dL low: 3.5g/d Lhigh: 5.2g/d L Not Available Not Available 01/17/2025 11:53:28 01/13/20 25 01/12/2025 [facility] [employer] 1999 panel - Serum or Plasm a bilirubin.to nolberto [mass/volume ] in serum or plasma 0.2 mg/dL low: 0mg/dL high: 1.2mg/ dL Not Available Not Available 01/17/2025 11:53:28 01/13/20 25 01/12/2025 [facility] [employer] [facility] 1999 panel - Serum or Plasm a alkaline phosphatase [enzymatic activity/vol ume] in serum or plasma 83 U/L low: 35U/Lh igh: 104U/L Not Available Not Available 01/17/2025 11:53:28 01/13/20 25 01/12/2025 Compr ehens trudi metab olic 1999 panel - Serum or Plasm a aspartate aminotransfe rase [enzymatic activity/vol ume] in serum or plasma Test canno t be perfo rmed. Sampl e hemol ysis inter feren ce above limit s. Redra w if indic ated. Not Available Not Available 01/17/2025 11:53:28 01/13/20 25 01/12/2025 Compr ehens trudi metab olic 1999 panel - Serum or Plasm a alanine aminotransfe rase [enzymatic activity/vol ume] in blood 7 U/L high: 34U/L Not Available Not Available 01/17/2025 11:53:28 01/13/20 25 01/12/2025 Compr ehens trudi metab olic 1999 panel - Serum or Plasm a glomerular filtration rate [volume rate/area] in serum, plasma or blood by creatinine-b ased formula (CKD-epi 2020)/1.73 sq M text: >=60 mL/min /1.73 sq meter eGFR calcu lated with 2020 CKD-E PI equat ion. Veget elton diet, extre janie high or low muscl e mass, and pregn mee may affec t resul ts. Cysta tin C with Glome rular Filtr ation Rate is a suita ble alter nativ e for these patie nts. Not Available Not Available 01/17/2025 11:53:28 01/13/20 25 01/12/2025 Compr ehens trudi metab olic 1999 panel - Serum or Plasm a anion gap in serum or plasma by calculation 11 mmol/ L low: 8mmol/ Lhigh: 16mmol /L Not Available Not Available 01/17/2025 11:53:28 01/13/20 25 01/12/2025 Compr ehens trudi metab olic 2000 panel - Serum or Plasm a samples containing indocyanine green cause interference s on total and/or direct bilirubin and must not BE measured. Sample s contai kamila indocy anine green cause interf erence s on Total and/or Direct Biliru bin and must not be measur ed. Not Available Not Available 11:53:28 01/13/20 25 01/12/2025 Compr ehens trudi metab olic 2000 panel - Serum or Plasm a interpretati on and review of laboratory results Abnorm al Not Available Not Available 11:53:28 01/14/20 25 01/13/2025 CBC W Auto Diffe renti al panel - Blood leukocytes [#/volume] in blood 8.1 K/uL low: 4K/uLh igh: 9.8K/u L Not Available Not Available 01/17/2025 11:53:29 01/14/20 25 01/13/2025 CBC W Auto Diffe renti al panel - Blood erythrocytes [#/volume] in blood by automated count 4.73 text: 3.90 - 4.90 M/uL Not Available Not Available 01/17/2025 11:53:29 01/14/20 25 01/13/2025 CBC W Auto Diffe renti al panel - Blood hemoglobin [mass/volume ] in blood 10.1 g/dL low: 11.8g/ dLhigh : 14.8g/ dL low Not Available Not Available 01/17/2025 11:53:29 01/14/20 25 01/13/2025 CBC W Auto Diffe renti al panel - Blood hematocrit [volume fraction] of blood by automated count 34.6 % low: 35.5%h igh: 44% low Not Available Not Available 01/17/2025 11:53:29 01/14/20 25 01/13/2025 CBC W Auto Diffe renti al panel - Blood MCV [entitic mean volume] in red blood cells by automated count 73.2 fL low: 82fLhi gh: 99fL low Not Available Not Available 01/17/2025 11:53:29 01/14/20 25 01/13/2025 CBC W Auto Diffe renti al panel - Blood MCH [entitic mass] by automated count 21.4 pg low: 27.2pg high: 32.6pg low Not Available Not Available 01/17/2025 11:53:29 01/14/20 25 01/13/2025 CBC W Auto Diffe renti al panel - Blood MCHC [entitic mass/volume] in red blood cells by automated count 29.2 g/dL low: 31.5g/ dLhigh : 35.5g/ dL low Not Available Not Available 01/17/2025 11:53:29 01/14/20 25 01/13/2025 CBC W Auto Diffe renti al panel - Blood RDW 17.6 % low: 11.5%h igh: 14.5% high Not Available Not Available 01/17/2025 11:53:29 01/14/20 25 01/13/2025 CBC W Auto Diffe renti al panel - Blood RDW-stdev 46.6 fL low: 37.1fL high: 48.7fL Not Available Not Available 01/17/2025 11:53:29 01/14/20 25 01/13/2025 CBC W Auto Diffe renti al panel - Blood platelets [#/volume] in blood by automated count 331 K/uL low: 140K/u Lhigh: 350K/u L Not Available Not Available 01/17/2025 11:53:29 01/14/20 25 01/13/2025 CBC W Auto Diffe renti al panel - Blood platelet [entitic mean volume] in blood by automated count 10.1 fL low: 9.3fLh igh: 12.4fL Not Available Not Available 01/17/2025 11:53:29 01/14/20 25 01/13/2025 CBC W Auto Diffe renti al panel - Blood neutrophils 53 % Not Available Not Av ailable 01/17/2025 11:53:29 01/14/20 25 01/13/2025 CBC W Auto Diffe renti al panel - Blood lymphocytes/ leukocytes in blood by automated count 34 % Not Available Not Available 12/28 11:53:29 01/14/20 25 01/13/2025 CBC W Auto Diffe renti al panel - Blood monocytes 10 % Not Available Not Avai lable 01/17/2025 11:53:29 01/14/20 25 01/13/2025 CBC W Auto Diffe renti al panel - Blood eosinophils 3 % Not Available Not Av ailable 01/17/2025 11:53:29 01/14/20 25 01/13/2025 CBC W Auto Diffe renti al panel - Blood basophils 1 % Not Available Not Avai lable 01/17/2025 11:53:29 01/14/20 25 01/13/2025 CBC W Auto Diffe renti al panel - Blood immature granulocytes 0 % Not Available Not Available 01/17/2025 11:53:29 01/14/20 25 01/13/2025 CBC W Auto Diffe renti al panel - Blood neutrophils [#/volume] in blood by automated count 4.31 K/uL low: 1.9K/u Lhigh: 7K/uL Not Available Not Available 01/17/2025 11:53:29 01/14/20 25 01/13/2025 CBC W Auto Diffe renti al panel - Blood lymphocytes [#/volume] in blood by automated count 2.75 K/uL low: 0.7K/u Lhigh: 4.5K/u L Not Available Not Available 01/17/2025 11:53:29 01/14/20 25 01/13/2025 CBC W Auto Diffe renti al panel - Blood monocytes [#/volume] in blood by automated count 0.79 K/uL low: 0.1K/u Lhigh: 1.3K/u L Not Available Not Available 01/17/2025 11:53:29 01/14/20 25 01/13/2025 CBC W Auto Diffe renti al panel - Blood eosinophils [#/volume] in blood by automated count 0.2 K/uL low: 0K/uLh igh: 0.7K/u L Not Available Not Available 01/17/2025 11:53:29 01/14/20 25 01/13/2025 CBC W Auto Diffe renti al panel - Blood basophils [#/volume] in blood by automated count 0.04 K/uL low: 0K/uLh igh: 0.2K/u L Not Available Not Available 01/17/2025 11:53:29 01/14/20 25 01/13/2025 CBC W Auto Diffe renti al panel - Blood immature granulocytes absolute 0.02 K/uL low: 0K/uLh igh: 0.03K/ uL Not Available Not Available 01/17/2025 11:53:29 01/14/20 25 01/13/2025 CBC W Auto Diffe renti al panel - Blood interpretati on and review of laboratory results Abnorm al Not Available Not Available 11:53:29 01/14/20 25 01/13/2025 [facility] 1999 panel - Serum or Plasm a sodium [moles/volum e] in serum or plasma 140 mmol/ L low: 136mmo l/Lhig h: 145mmo l/L Not Available Not Available 01/17/2025 11:53:28 01/14/20 25 01/13/2025 [facility] 1999 panel - Serum or Plasm a potassium [moles/volum e] in serum or plasma 4 mmol/ L low: 3.5mmo l/Lhig h: 5mmol/ L Not Available Not Available 01/17/2025 11:53:28 01/14/20 25 01/13/2025 [facility] 1999 panel - Serum or Plasm a chloride [moles/volum e] in serum or plasma 107 mmol/ L low: 98mmol /Lhigh : 107mmo l/L Not Available Not Available 01/17/2025 11:53:28 01/14/20 25 01/13/2025 [facility] 1999 panel - Serum or Plasm a carbon dioxide, total [moles/volum e] in serum or plasma 23 mmol/ L low: 22mmol /Lhigh : 29mmol /L Not Available Not Available 01/17/2025 11:53:28 01/14/20 25 01/13/2025 [facility] 1999 panel - Serum or Plasm a calcium [mass/volume ] in serum or plasma 9.1 mg/dL low: 8.6mg/ dLhigh : 10.2mg /dL Not Available Not Available 01/17/2025 11:53:28 01/14/20 25 01/13/2025 [facility] 1999 panel - Serum or Plasm a urea nitrogen [mass/volume ] in serum or plasma 13 mg/dL low: 6mg/dL high: 20mg/d L Not Available Not Available 01/17/2025 11:53:28 01/14/20 25 01/13/2025 [facility] 1999 panel - Serum or Plasm a creatinine [mass/volume ] in serum or plasma 0.9 mg/dL low: 0.51mg /dLhig h: 0.95mg /dL Not Available Not Available 01/17/2025 11:53:28 01/14/20 25 01/13/2025 Basic metab olic 2000 panel - Serum or Plasm a glucose [mass/volume ] in serum or plasma 94 mg/dL low: 74mg/d Lhigh: 99mg/d L Not Available Not Available 01/17/2025 11:53:28 01/14/20 25 01/13/2025 Basic metab olic 2000 panel - Serum or Plasm a glomerular filtration rate [volume rate/area] in serum, plasma or blood by creatinine-b ased formula (CKD-epi 2020)/1.73 sq M text: >=60 mL/min /1.73 sq meter eGFR calcu lated with 2020 CKD-E PI equat ion. Veget elton diet, extre janie high or low muscl e mass, and pregn mee may affec t resul ts. Cysta tin C with Glome rular Filtr ation Rate is a suita ble alter nativ e for these patie nts. Not Available Not Available 01/17/2025 11:53:28 01/14/20 25 01/13/2025 Basic metab olic 2000 panel - Serum or Plasm a anion gap in serum or plasma by calculation 10 mmol/ L low: 8mmol/ Lhigh: 16mmol /L Not Available Not Available 01/17/2025 11:53:28 01/14/20 25 01/13/2025 Basic metab olic 2000 panel - Serum or Plasm a interpretati on and review of laboratory results Normal Not Available Not Available 12/28 11:53:28 12/03/19 21 12/01/2020 US, pelvi s, trans abdom inal + trans vagin al No observ ation record ed. [email or web address] [facility] (Radiology) [address] [place] [address] [place], [address], 12/02/2020 14:46:32 12/17/19 25 12/13/2024 US, echoc ardio gram, trans thora cic, compl ete No observ ation record ed. [email or web address] [place], [address], 12/31/2024 13:06:10 12/20/19 25 12/18/2024 elect rocar diogr am, routi ne ECG, 12 leads min No observ ation record ed. [email or web address] [address] [place], [address], 01/02/2025 12:15:11 01/10/20 25 01/09/2025 CT, head, w/o contr ast No observ ation record ed. [email or web address] [address] [place], [address], 01/13/2025 10:15:50 01/18/20 25 01/17/2025 XR, chest No observ ation record ed. [address] [place], [address], 01/21/2025 12:11:04 01/18/20 25 01/17/2025 elect rocar diogr am, routi ne ECG, 12 leads min No observ ation record ed. [address] [place], [address], 01/21/2025 12:11:20 01/18/20 25 01/17/2025 elect rocar diogr am, routi ne ECG, 12 leads min No observ ation record ed. [address] [place], [address], 01/21/2025 12:11:30 03/03/20 25 03/03/2025 US, obste tric, 1st trime ster No observ ation record ed. [address] [place], [address], 03/04/2025 09:52:49 Result Notes None recorded. Problems Name Problem SNOMED Code Status Onset Date Resolution Date Notes Provider Name and Address Organization Details Recorded Time Intermitten t palpitation s 895600218 Active 2024 Guanako Velez MD Attn: Checo g,[address] [facility], [place], [address], [place] [facility] 15:20:57 Prediabetes 462369532 Active 2024 Guanako Velez MD Attn: Checo hyacinth,[address] [facility], [place], [address], [place] [facility] 15:21:28 Microcytic anemia 702792044 Active 2024 Guanako Velez MD Attn: Checo hyacinth,[address] [facility], [place], [address], [place] [facility] 15:22:39 Menstrual period late 95811201 Active 2024 Guanako Velez MD Attn: Checo hyacinth,[address] [facility], [place], [address], [place] [facility] 15:55:52 Iron deficiency anemia 00850570 Active 2024 Guanako Velez MD Attn: Checo hyacinth,[address] [facility], [place], [address], [place] [facility] 18:04:53 Chest wall pain 755843129 Active 2024 BERNA ADAMS NP Attn: Checo hyacinth,[address] [facility], [place], [address], [place] [facility] 17:12:41 Constipatio n 29376543 Active 2024 BERNA ADAMS NP Attn: Checo claros,[address] [facility], [place], [address], [place] [facility] 17:13:09 Nausea 077149458 Active 2024 BERNA ADAMS NP Attn: Checo claros,[address] [facility], [place], [address], [place] [facility] 17:14:04 Obese class II 8923874270254 05 Active 2024 BERNA ADAMS NP Attn: Checo claros,[address] [place], [address], [facility] - [facility] 5 14:03:11 Problem Notes None recorded. Procedures Surgical History Date Name Laterality Status Provider Name and Address Organization Details Recorded Time Depo Injection completed DERRICK Torres [place] - [facility] 07/21/2020 15:49:13 Imaging Results None recorded. Procedure Notes None recorded. Medical Equipment None Reported. Allergies No known drug allergies Medications Name Sig Start Date Stop Date Status Note LastModified by Organization Details LastModified Time cyclobenza reyes 10 mg tablet TAKE 1 TABLET BY MOUTH THREE TIMES A DAY NEEDED FOR MUSCLE SPASMS active Not Available Not Available No t Available fluconazol e 150 mg tablet TAKE 1 TABLET (150 MG TOTAL) BY MOUTH ONCE FOR 1 DOSE. 10/29 completed Not Available Not Available Not Available levetirace suh 500 mg tablet TAKE 1 TABLET BY MOUTH TWICE A DAY active pt is not taking 01/20/25 Not Available Not Available Not Available hydrocodon e 5 mg-acetami nophen 325 mg tablet TAKE 1 TABLET BY MOUTH EVERY 6 HOURS NEEDED FOR PAIN active pt is not taking 01/20/25 Not Available Not Available Not Available metronidaz ole 500 mg tablet TAKE 1 TABLET BY MOUTH TWICE A DAY FOR 7 DAYS 10/29 completed Not Available Not Available Not Available sulfametho xazole 800 mg-trimeth oprim 160 mg tablet TAKE 1 TABLET BY MOUTH TWICE A DAY 05/08 completed Not Available Not Available Not Available estradiol 1 mg tablet Take 1 tablet every day by oral route for 15 days. 12/02 completed Not Available Not Available Not Available oseltamivi r 75 mg capsule TAKE 1 CAPSULE BY MOUTH TWICE A DAY FOR 5 DAYS 10/29 completed Not Available Not Available Not Available ferrous sulfate 325 mg (65 mg iron) tablet Take 1 tablet 3 times a week by oral route for 90 days. 02/07 completed pt is not taking 01/20/25 Not Available Not Available Not Available docusate sodium 100 mg capsule Take 1 capsule every day by oral route. 11/25 completed Not Available Not Available Not Available lorazepam 1 mg tablet TAKE 1 TABLET (1 MG TOTAL) BY MOUTH EVERY 12 (TWELVE) HOURS NEEDED FOR ANXIETY FOR UP TO 10 DOSES active Not Available Not Available No t Available ondansetro n 4 mg disintegra ting tablet Place 2 tablets twice a day by translin gual route as needed for 7 days. 02/03 completed Not Available Not Available Not Available medroxypro gesterone 150 mg/mL intramuscu lar suspension Inject 1 mL every 3 months by intramus cular route. 11/25 completed Not Available Not Available Not Available cholecalci ferol (vitamin D3) 125 mcg (5,000 unit) capsule TAKE 1 CAPSULE BY MOUTH EVERY DAY 06/24 completed Not Available Not Available Not Available naproxen 500 mg tablet TAKE 1 TABLET BY MOUTH TWICE A DAY NEEDED FOR PAIN FOR 10 DAYS active Not Available Not Available No t Available medroxypro gesterone 150 mg/mL intramuscu lar syringe Inject 1 mL every 3 months by intramus cular route. 11/25 completed Not Available Not Available Not Available 06/17 (28) 1 mg-20 mcg (21)/75 mg (7) tablet TAKE 1 TABLET BY MOUTH EVERY DAY 05/08 completed Not Available Not Available Not Available nitrofuran toin monohydrat e/macrocry stals 100 mg capsule TAKE 1 CAPSULE (ORAL) 2 TIMES PER DAY FOR 5 DAYS MUST ADMINIST ER WITH A MEAL/PARISA D active Not Available Not Available No t Available cholecalci ferol (vitamin D3) 1,250 mcg (50,000 unit) capsule TAKE 1 CAPSULE BY MOUTH ONCE A WEEK FOR 12 WEEKS. DUe for labs 10/29 completed Not Available Not Available Not Available Tri-Lo-Mar jere 0.18 mg/0.215 mg/0.25 mg-0.025 mg tablet TAKE 1 TABLET BY MOUTH EVERY DAY 06/24 completed Not Available Not Available Not Available Vitals Date Recorded Body weight Body mass index (BMI) Body height Body temperature Respiratory rate Heart rate Oxygen saturation Oxygen saturation in Arterial blood by Pulse oximetry Systolic And Diastolic Provider Name and Address Organization Details Last Updated DateTime 828971. 35 g 35.2 kg/m2 168.91 cm 98.2 [degF] 16 /min 75 /min 99 % 99 % 132/87 mm[Hg] Jewels Perry MA [facility] 5 15:27:29 Date Recorded Body height Body mass index (BMI) Body mass index (BMI) [Percentile] Per age and sex Body weight Heart rate Respiratory rate Body temperature Systolic And Diastolic Provider Name and Address Organization Details Last Updated DateTime 2 168.91 cm 35 kg/m2 98 % 09196.7 6 g 100 /min 16 /min 96.5 [degF] 138/80 mm[Hg] Jewels Perry MA [facility] 2 15:42:29 Date Recorded Body height Body mass index (BMI) Body mass index (BMI) [Percentile] Per age and sex Body weight Systolic And Diastolic Provider Name and Address Organization Details Last Updated DateTime 12/02/2020 167.64 cm 31.3 kg/m2 96 % 35075.9 2 g 130/70 mm[Hg] DERRICK Torres [facility] 1 14:44:15 Date Recorded Body height Body mass index (BMI) Body weight Respiratory rate Body temperature Oxygen saturation Oxygen saturation in Arterial blood by Pulse oximetry Heart rate Systolic And Diastolic Provider Name and Address Organization Details Last Updated DateTime 5 168.91 cm 35.8 kg/m2 142281. 45 g 14 /min 98.2 [degF] 98 % 98 % 72 /min 112/78 mm[Hg] Carmen Garcia Jorje [facility] 5 16:51:34 Date Recorded Body height Body mass index (BMI) Body mass index (BMI) [Percentile] Per age and sex Body weight Systolic And Diastolic Provider Name and Address Organization Details Last Updated DateTime 05/08/2023 168.91 cm 36.6 kg/m2 97.51 % 552125. 25 g 130/78 mm[Hg] Coretta Mcpherson Jorje [facility] 3 11:34:44 Social History Question Answer Notes LastModified by Organizat ion Details LastModified Time Tobacco Smoking Status Never Smoker MITZI Johnson, [facility] 06/23/2016 10:24:07 Animal Exposure? No Informat ion not available 06/23/2016 Do You Wear A Helmet When Biking? No Information not available 11/25/2021 What Is Your Level Of Caffeine Consumption? None Information not available 01/20/2025 What Type Of Vibrator Equipment Tester Do You Use? None Information not available 11/25/2021 In The 14 Days Before Symptom Onset, Have You Had Close Contact With A Laboratory-confir med COVID-19 While That Case Was Ill? No Information not available 11/25/2021 In The 14 Days Before Symptom Onset, Have You Had Close Contact With A Person Who Is Under Investigation For COVID-19 While That Person Was Ill? No Information not available 11/25/2021 Have You Been To An Area Known To Be High Risk For COVID-19? No Information not available 11/25/2021 What Type Of Diet Are You Following? REGULAR Information not available 06/23/2016 What Is The Highest Grade Or Level Of School You Have Completed Or The Highest Degree You Have Received? [id number] 2021 Information not available 11/25/2021 Are There Any Guns Present In Your Home? No Information not available 11/25/2021 What Is Your Home Situation? Other Information not available 10/29/2024 Do You Use Insect Repellent Routinely? No Information not available 06/23/2016 Car Seat Type Or Seat Belt? Seat Belt Information not available 06/23/2016 Parent Involvement? Both Parents Involved Information not available 06/23/2016 Riding In Car Front Seat? Yes Information not available 06/23/2016 What Was The Date Of Your Most Recent Tobacco Screening? 01/20/2025 Information not available 01/20/2025 What Is Your Parents' Marital Status? Unmarried Information not available 06/23/2016 Do You Have Any Pets? Yes Information not available 11/25/2021 What Is Your Relationship Status? Single Partner Information not available 10/29/2024 Do You Use Your Seat Belt Or Car Seat Routinely? Yes Information not available 11/25/2021 Do You Have Any Siblings? 2 Boys 2 Girls Information not available 06/23/2016 Do You Have Smoke And Carbon Monoxide Detectors In Your Home? Yes Information not available 06/23/2016 Are You Passively Exposed To Smoke? No Information no t available 06/23/2016 How Much Tobacco Do You Smoke? No Information not available 06/24/2020 Do You Participate In Social Media? Yes Information not available 11/25/2021 Do You Use Sunscreen Routinely? No Information not available 06/23/2016 Has Tobacco Cessation Counseling Been Provided? Yes Information not available 05/08/2023 On What Date Was Tobacco Cessation Counseling Provided? 01/20/2025 Information not available 01/20/2025 Are You Currently In School? No Information not available 11/25/2021 Sex: Female Functional Status Question Answer Note LastModified by Organizat ion Details LastModified Time Do you use any illicit or recreational drugs? No Information not available 05/08/2023 Do you or have you ever used any other forms of tobacco or nicotine? No Information not available 07/21/2020 What is your level of alcohol consumption? Occasional Information not available 10/29/2024 Do you or have you ever used smokeless tobacco? Never used smokeless tobacco Information not available 06/24/2020 Are you currently employed? 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 Never used electronic cigarettes Information not available 06/24/2020 What is your exercise level? Occasional Information not available 06/23/2016 Mental Status Question Answer Note LastModified by Organization D etails LastModified Time Are you or have you been involved with bullying? No Information not available 11/25/2021 Family History Relationship Description Onset Age of this Age Resolved Age Notes LastModified by Organization Details LastModified Time Father Hypertensive disorder 38 Not available 2016 10:42:28 Father Diabetes mellitus 38 Not available 2016 10:43:44 Notes:01/20/25 Medical History Condition Response Blood Diseases N Depression N Developmental or Behavioral Disorders N Premature N Anxiety Disorder N Muscle, Joint, or Bone Problems N Vision or Eye Problems N Head Injury/Concussion N Cancer N ADHD N Bladder or Kidney Problems N Headaches N Ear or Hearing Problems N Thyroid Problems N Skin Problems N Anemia N Constipation N Diabetes N Bedwetting N Heart Problems/Murmur N Seizures/Epilepsy N Asthma N Allergies N Chicken Pox N Autism Spectrum Disorder (ASD) N Gynecological History Statement/Question Response Flow Moderate Date of LMP 12/30/2024 STIs/STDs N HPV Vaccine Y Duration of Flow (days) 5 Age at Menarche 10 Current Control Method None Frequency of Cycle (Q days) 28 Sexually Active? Y Menses Monthly Y Sexual Problems? N LMP Approximate Desired Control Method Condoms Obstetrics History GPAL:G 0 P 0 0 0 0 Immunizations Vaccine Type Date Status Note Provider Nam e and Address Organization Details Recorded Time HPV9 7 completed Not Available [facility] 06/15/2019 02:33:03 Influenza, split virus, quadrivalent, PF 7 completed Not Available [facility] 06/15/2019 02:46:39 pneumococcal conjugate PCV 7 4 completed Carmen Stagner, R[place], [place] [facility] 12/31/2024 13:03:36 influenza, split (incl. purified surface antigen) 6 completed Carmen Stagner[place] [facility] 12/31/2024 13:03:36 Hep A, ped/adol, 2 dose 1 completed Carmen Stagner[place] [facility] 12/31/2024 13:03:36 meningococcal MCV4P 5 completed Carmen Stagner[place] [facility] 12/31/2024 13:03:37 Influenza, split virus, quadrivalent, PF 8 completed Carmen Stagner[place] [facility] 12/31/2024 13:03:37 Influenza, split virus, quadrivalent, PF 9 completed Not Available [facility] 06/15/2019 02:38:48 meningococcal B, OMV [address] MD Attn: Accounting[address] [facility], [place], [address], [place] [facility] 03/06/2020 17:19:26 meningococcal MCV4P [address] MD Attn: Accounting[address] [facility], [place], [address], [place] [facility] 03/06/2020 17:19:26 Influenza, split virus, quadrivalent, PF [address] MD Attn: Accounting[address] [facility], [place], [address], [place] [facility] 03/06/2020 17:19:26 meningococcal B, OMV 2 completed DERRICK [place] [facility] 11/25/2021 17:12:20 DTaP 4 completed Leanne [place] [facility] 06/21/2016 14:04:28 DTaP 4 completed [place]anne [place] [facility] 06/21/2016 14:04:53 DTaP 5 completed [place]anne [place] [facility] 06/21/2016 14:05:16 DTaP 8 [place] [facility] 06/21/2016 14:05:40 Hib, unspecified formulation 4 completed [place]anne [place] [facility] 06/21/2016 14:06:10 Hib-Hep B 4 [place] [facility] 06/21/2016 14:06:33 Hib, unspecified formulation 5 completed [place] [facility] 06/21/2016 14:06:57 Hib, unspecified formulation 6 [place] [facility] 06/21/2016 14:07:16 Hep A, pediatric, unspecified formulation 9 completed [place]ERR[place] [facility] 12/31/2024 13:03:36 Hep A, pediatric, unspecified formulation 1 completed Leanne [place] [facility] 06/21/2016 14:08:09 Hep B, adolescent or pediatric 9 completed [place]ERR[place] [facility] 12/31/2024 13:03:36 Hep B, adolescent or pediatric 9 completed Leanne [place] [facility] 06/21/2016 14:09:15 HPV9 5 completed [place]ERR[place] [facility] 12/31/2024 13:03:36 influenza, unspecified formulation 6 completed Leanne [place] [facility] 06/21/2016 14:10:40 MMR 5 completed [place] [facility] 06/21/2016 14:11:25 MMR 8 completed Leanne [place] [facility] 06/21/2016 14:11:47 meningococcal ACWY, unspecified formulation 5 completed Leanne [place] [facility] 06/21/2016 14:12:19 pneumococcal, unspecified formulation 4 completed [place] [facility] 06/21/2016 14:49:13 Pneumococcal Conjugate, unspecified formulation 6 completed Leanne [place] [facility] 06/21/2016 14:49:36 IPV 4 completed Leanne [place] [facility] 06/21/2016 14:49:59 IPV 4 completed [place] [facility] 06/21/2016 14:50:15 IPV 5 completed Leanne [place] [facility] 06/21/2016 14:50:34 IPV 8 [place] [facility] 06/21/2016 14:50:55 Tdap 5 completed [place]ERR[place] [facility] 12/31/2024 13:03:36 varicella 5 [place] [facility] 06/21/2016 14:53:39 varicella 9 completed [place]ERR[place] [facility] 12/31/2024 13:03:36 varicella 0 [place] [facility] 06/21/2016 14:54:30 DTaP 6 [place] [facility] 06/23/2016 10:07:18 Pneumococcal Conjugate, unspecified formulation 4 completed [place] [facility] 06/24/2016 10:46:59 Past Encounters Encounter ID Performer Location Encounter Start Date Encounter Closed Date Diagnosis/Indication Diagnosis SNOMED-CT Code Diagnosis ICD10 Code Diagnosis IMO Codes Diagnosis Note [id number] MD Kenny Bhardwaj (Peds) [address] [place] [address] 06/23/2016 09:46:52 06/24/2016 17:35:02 Well child 492849802 Z00.129 Overweight in childhood 582738367 Z68.54 advised to eat healthy and exercise. Dad was advised that she is at risk, jailene. with dad having DM and HTN -- will check blood work today Idiopathic scoliosis 203 991333 M41.955 [id number] MD Kenny Bhardwaj (Peds) [address] [facility] [place] [address] 07/18/2016 10:53:58 07/19/2016 15:52:49 Abnormal vaginal odor 94834171 N89.8 ? candidiasi s with concomitan t bacterial vaginosis. Will give fluconazol e and metronidaz ole. Perineal hygiene reiterated . [id number] MD Kenny Bhardwaj 14 PEDS [address] [facility] [place] [address] 01/10/2018 11:27:58 01/12/2018 10:48:09 Well child 049995884 Z00.129 Laboratory test result abnormal 535337569 R89.9 Knee joint effusion 2022 11067 M25.461 Child at i ncreased risk for overweight body mass index greater than 85 percentile 564657149 Z91.89 Diet education 98347026 Z71.3 Exercises education, guidance, and counseling 517885249 Z71.82 [id number] MD Kenny Bhardwaj [address] [place] [address] [place] [address] 03/22/2018 10:51:31 03/23/2018 13:11:48 Administration of influenza vaccine 58776057 Z23 [id number] MD Kenny Bhardwaj [address] [place] [address] 01/22/2019 10:33:03 01/23/2019 12:30:56 Well child 225311313 Z00.129 Irregular periods 414610 07 N92.6 test was negative. Mom was advised that it may still be normal, however, if she misses another month, then will run blood work, and refer to STAFF ASSISTANT Diet education 61311590 Z71.3 Exercises education, guidance, and counseling 724531705 Z71.82 Overweight in childhood 407590244 Z68.54 advised to eat healthy and exercise. [id number] MD [facility]waj [facility] [place] [address] 05/06/2019 10:27:53 05/07/2019 14:24:40 Administration of influenza vaccine 59211133 Z23 [id number] MD Kenny Bhardwaj 14 PED [place] [facility] [place] [address] 03/02/2020 14:43:14 03/03/2020 13:43:51 Vaginal discharge 322076424 N89.8 will cover for bacterial vaginosis [id number] MD Kenny Bhardwaj 14 PEDAndie Boyce [facility] [place] [address] 03/06/2020 16:19:43 03/09/2020 12:30:12 Well child visit 567485253 Z76.2 Child at i ncreased risk for overweight body mass index greater than 85 percentile 268416427 Z91.89 Diet education 40131175 Z71.3 Exercises education, guidance, and counseling 226348033 Z71.82 [id number] MD Kenny Ramirez [address] [place] [address] [place] [address] 06/24/2020 08:56:45 06/25/2020 11:08:38 Contraception care management 914674060 Z30.9 Discussed all options. Pt decided on depo. Risks of hormonal control reviewed, patient was informed of risk including but not limited to thrombosis , embolism, pulmonary embolism, stroke, disability , sexual dysfunctio n & . Patient understand s these risk are increased with smoking. Pt understand s & accepts risks. Instructio ns/warning signs given. Safe sex counseling done. Pt supposed to start menses next week. Pt bring come in during menses next week and bring depo. Pt advised to continue to abstain from intercours e at this time. pt notified to call office if she starts her menses early [id number] MD Kenny Ramirez [address] [place] [address] [place] [address] 07/21/2020 15:26:10 07/23/2020 10:40:49 Initiation of depot contraception done 3168942611 57900 Z30.013 Discussed all options and pt wants to continue with depo. Risks of hormonal control reviewed,m enstrual bleeding or no bleeding, weight changes, breast tenderness and mood changes. Risks of bone loss with Depo Provera also reviewed. All questions answered. Pt understand s & accepts risks. Instructio ns/warning signs given. Safe sex counseling done. Patient was instructed to follow up with appointmen t when next depo due and call office if issues occur. [id number] MD Kenny Ramirez [address] [place] [address] 10/15/2020 15:28:52 10/16/2020 11:30:36 Surveillance of depot contraception done 9565863493 9104 Z30.42 [id number] MD Kenny Ramirez 14 [address] [facility] [place] [address] 10/22/2020 11:24:26 10/27/2020 10:08:43 Break-through bleeding 31313766 N92.1 Pt declined pelvic exam. Labs and pelvic US ordered. Discussed options for bleeding with depo. Pt decided on estradiol. Patient was informed of risk including but not limited to thrombosis , embolism, pulmonary embolism, stroke, disability , sexual dysfunctio n & .Risk s of hormonal control reviewed,m enstrual bleeding or no bleeding, weight changes, breast tenderness and mood changes. Patient understand s these risk are increased with smoking. Pt understand s & accepts risks. Instructio ns/warning signs given. Safe sex counseling done. Follow up in 2 weeks and call office if issues occur. [id number] MD Kenny Ramirez [address] Mejia [address] [place] [address] [address] 11/11/2020 10:36:28 11/12/2020 11:58:07 Break-through bleeding 95811238 N92.1 Pt declined pelvic exam. Pt reminded to complete Pelvic US. Discussed options for bleeding with depo. Pt decided on continuing estradiol. Patient was informed of risk including but not limited to thrombosis , embolism, pulmonary embolism, stroke, disability , sexual dysfunctio n & .Risk s of hormonal control reviewed,m enstrual bleeding or no bleeding, weight changes, breast tenderness and mood changes. Patient understand s these risk are increased with smoking. Pt understand s & accepts risks. Instructio ns/warning signs given. Safe sex counseling done. Follow up in 2 weeks and call office if issues occur. Abnormal prolactin 07858 7009 R94.7 Fasting prolactin repeated today. Follow up based on results. Anemia 774380138 D64.9 FOllow up labs completed today. Follow up based on results. [id number] MD Kenny Ramirez [address] [place] [address] [address] 12/02/2020 14:34:47 12/03/2020 07:06:20 Anemia 154825517 D64.9 Follow up labs completed today. Follow up based on results. Pt educated on importance of taking iron as prescribed . Abnormal prolactin 59248 7009 R94.7 Pt has importance with endocrine on 01/12/21 @ 10:30 Dr Sanchez. Pt educated on importance of follow up. Contracept ion care management [id number] Z30.9 Discussed all options. Pt decided on ASHLEY. Risks of hormonal control reviewed, patient was informed of risk including but not limited to thrombosis , embolism, pulmonary embolism, stroke, disability , sexual dysfunctio n & .Risk s of hormonal control reviewed,m enstrual bleeding or no bleeding, weight changes, breast tenderness and mood changes. Patient understand s these risk are increased with smoking. Pt understand s & accepts risks. Instructio ns/warning signs given. Safe sex counseling done. Follow up in 8 to 12 weeks and call office if issues occur. [id number] MD Kenny Bhardwaj 14 PEDS [address] [facility] [place] [address] 11/25/2021 15:17:02 11/26/2021 08:52:28 Well child visit [id number] Z76.2 Overweight in childhood 517045112 Z68.54 advised to eat healthy and exercise. Anemia 349585209 D64.9 At [facility] risk of sexually transmitted infection 575782806 Z20.2 SARS-CoV-2 mRNA vaccine declined 8634194129 Z28.21 Exercises education, guidance, and counseling 122417379 Z71.82 [id number] MD Kenny Ramirez 14 OB 4 [facility] [address] [place], [place] [address] [address] 05/08/2023 11:21:22 05/10/2023 10:42:30 Contraception care management 902552186 Z30.9 Discussed all options including risks and benefits with each. Pt undecided and will call back once she decides. Pt considerin g IUD vs implant. pt notified they will need to placed during menses. Pt advised to use back up method at this time. History of anemia 135915 002 Z86.2 labs ordered. follow up based on results. High risk sexual behavior 569448600 Z72.51 urine collected and sent to lab. Counseled on safe sex, condom use and STD precaution s discussed screening completed per patient's request. pt declined additional testing Childhood obesity 061591 003 E66.8 Pt educated on risks and importance of lifestyle modificati ons. Pt reports will continue to follow up with PCP. Abnormal prolactin 89564 7009 R94.7 history of elevated level. Repeat today. follow up based on results. [id number] MD Kenny Zayas [address] [place] [address] [place] [address] 10/29/2024 15:03:54 10/30/2024 12:47:32 Intermittent palpitations 701704811 R00.2 [id number] Pt presented to the ED at [facility] 10/24 due to palpitatio ns. 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 UA was notable for 1+ ketones, CBC w/ WBC 10.6, Hgb 10.1, MCV 73.0; CMP w/ CO2 19 otherwise WNL. CXR nil acute.Orth ostatic vitals:Unl ikely attributed to anxiety per patientMos t likely cause is RICK, will assess thyroid function, echo and obtain formal EKG to assess for conduction delays (ie WPW)- TSH- TTE- will defer cardiology consult for now Microcytic anemia 933353 007 D50.9 11914 CBC notable for Hgb 10.1, MCV 73 in ER on 10/24Will assess for RICK w/ ferritin Prediabetes 650467454 R7 3.03 422950 A1c (05/20): 6.2%will repeat Menstrual period late 84 028228 N92.6 389016 period was late by 2 weekshcg negative in office, pt and mother wishing for serum confirmati onpt wishing for Nexplanon, will have her follow up in procedure clinic [id number] MD Kenny Coy 14 IM 4 [facility] [address] [place] [address] 01/20/2025 15:37:40 01/22/2025 10:00:33 Chest wall pain 956939898 R07.89 82289 -Likely chest wall/muscl e strain, improved with chest support.-R ecommend supportive bra use consistent ly.-Acetam inophen as needed for pain-Apply warm compresses to the area as tolerated. =Reassuran ce given; cardiac cause unlikely given negative ER workup. Constipation 43858151 K5 9.00 549968542 -Continue MiraLAX as directed, but may reduce dose if nausea persists.- Encourage hydration and high-fiber diet.-Kirstin tor bowel patterns; return if persistent constipati on, abdominal pain, or rectal bleeding. Nausea 826056531 R11.0 R42 78220 -Encourage small, frequent meals.-Tri al of reducing MiraLAX dose or taking with more water.-Mon itor symptoms; follow up if persistent or worsening. -Prescribe d ondansetro n (Zofran) 4 mg PO q8h PRN for nausea.-En courage small, frequent meals.-Mon itor for persistenc e or worsening. Iron defic iency anemia 90913870 D50.9 -Reinforce importance of resuming iron supplement as prescribed .-Monitor for fatigue, pallor, dizziness, and worsening symptoms.- Restart oral iron supplement ation (refilled today).-Re inforce adherence. 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 1 46444 E66.812 E66.3 [id number] -Pt advised of BMI -Pt encouraged to eat a plant-base d diet, minimizing processed foods and portion control -Pt advised on the recommenda tions for routine exercise Health Concerns Section Related Observation LastModified by Organization Detai ls LastModified Time None Recorded Concern Status LastModified by Organization Details LastModified Time None Recorded Advance Directives Directive None Recorded Payers Insurance Date Sequence Insurance Name Policy Number Policy Tariq Covered Member ID Tariq Member ID Guarantor Name 02/13/2025 1 [facility] ON OR AFTER 11/26/20 (MEDICAID REPLACEMENT - HMO) Pat Anderson [id number] Pat Anderson 12/12/2024 1 [place]MENT [place] Pat Anderson [id number] Pat Anderson 12/12/2024 [facility] PRIOR TO 11/26/2020 (MEDICAID REPLACEMENT - HMO) Pat Anderson [id number] Pat Anderson 12/12/2024 1 [facility] PRIOR TO 11/26/2020 (MEDICAID REPLACEMENT - HMO) Pat Anderson [id number] Pat Anderson 03/26/2018 1 [facility] (O) [id number] Tru Anderson [id number] Pat Anderson Notes Date Note Type Note Provider Name and Address Organization Details Recorded Time 12/02/2020 text/html Pt is here for follow up on prolonged bleeding with depo. Pt reports completed estradiol. PT denies any heavy bleeding. pt reports bleeding is only spotting-moderate every so often. Pt wanting to switch to ASHLEY today. Pelvic US was normal on 12/01/2020. Pt has iron deficiency anemia but reports forgot to start iron. Pt denies any other complaints. LARRY Castro Attn: Accounting,[address] [facility], [place], [address], [place] - [facility] 12/02/2020 15:37:51 11/25/2021 text/html Here for a well visit. 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 LMP 2 weeks ago x [address] MD Attn: Accounting,[address] [facility], [place], [address], [place] [facility] 11/25/2021 17:40:38 05/08/2023 text/html Pt is here for control discussion. Pt has history anemia and elevated prolactin but denies following up. Pt denies any heavy menses. pt denies any complaints. LARRY Castro Attn: Accounting,[address] [facility], [place], [address], [place] [facility] 05/08/2023 12:05:00 10/29/2024 text/html ROS as noted in the HPI 19F presenting for hospital follow up. She presented to the ED at [facility] 10/24 due to palpitations. 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 UA was notable for 1+ ketones, CBC w/ WBC 10.6, Hgb 10.1, MCV 73.0; CMP w/ CO2 19 otherwise WNL. CXR nil acute. She has not had episodes like that before, although since she reports some chest discomfort and some dizziness but no more palpitations. She reports an epigastric burning sensation. She does not believe anxiety is attributable to this. She reports normally having heavy periods with her last period 1.5 months ago. She stopped taking control around 1 year ago. Her heart rate was reportedly 160 bpm at work and 110 bpm in the ER. EKG in the ER was 93 and regular. She does note shortness of breath since the episode. She denies cough or wheeze, denies night time awakenings for coughing. Perry Tejeda MD Attn: Accounting[address] [facility], [place], [address], [facility] 10/29/2024 18:28:14 01/20/2025 text/html 19-year-old female presents for ER follow-up regarding chest pain. She was evaluated in the ER where cardiac workup was unremarkable, and the pain was thought to be musculoskeletal in origin. Today, she continues to report left-sided chest pain, which improves when wearing a supportive bra. She denies shortness of breath, palpitations, or syncope. She also reports starting MiraLAX 2 days ago for constipation and now experiences dizziness and nausea when eating, although she has since had a bowel movement. Past medical history includes anemia; she is currently not taking her prescribed iron supplement. BERNA ADAMS NP Attn: Accounting,[address] [facility], [place], [address], [facility] 01/21/2025 14:06:50 OBGyn Episode No OBEpisode recorded.
== END 2025-04-16 13:45 | disposition short-term general hospital (02) ==
PROVIDERS: Emergency Provider Nurse Practitioner
DX: O99.352 Diseases of the nervous system complicating pregnancy, second trimester (principal); R29.818 Other symptoms and signs involving the nervous system; Z3A.14 14 weeks gestation of pregnancy
CPT/HCPCS: 99215; G0463